=== PATIENT | female | born 1940 | race Caucasian/White ===

== ENCOUNTER 2024-10-02 19:25 | Inpatient (IN) ==
[2024-10-02] MEDS ORDERED: SODIUM CHLORIDE 0.9% 100 ML IV PRN (19:40)
--- NOTE | 2024-10-02 19:44 | Emergency Department Note ---
Impression & Plan Acute upper GI bleed, Anemia requiring transfusions, Symptomatic anemia ED Provider Note HISTORY OF PRESENT ILLNESS: Patient is an 84-year-old female presenting with a GI bleed. Patient is currently at a facility where they noticed that she had black tarry stools starting yesterday. Patient reports feeling very rundown and tired and slightly short of breath over the last few days. She is on Lovenox injections. She has a history of a mechanical heart valve. Patient reports she received a blood transfusion at [facility] some point this week. She denies any abdominal pain, nausea or vomiting. On discussion with the patient, she does report that her CODE STATUS is DNR/DNI. ROS: as above PHYSICAL EXAM: Constitutional: Patient appears in no acute distress. HENT: Head: Normocephalic and atraumatic. Eyes: EOMI, PERRL. Conjunctival pallor. Mouth/Throat: Mucous membranes moist. Neck: Trachea midline. Neck supple. Cardiovascular: Tachycardic with regular rhythm. No murmurs, rubs or gallops. Intact distal pulses. Pulmonary/Chest: No respiratory distress. Breath sounds clear and equal bilaterally. No wheezes or rales. Abdominal: Abdomen soft, no tenderness, rebound or guarding. Rectal: Chaperoned by nurse Vazquez. Kevin black, melanotic stool noted. No palpable masses or hemorrhoids. Hemoccult positive. Musculoskeletal: No edema, tenderness or deformity noted. Skin: Warm and dry. No rash, erythema, or cyanosis. Pale appearing. Psychiatric: Appropriate mood and affect for situation. Neurological: Alert and keenly responsive. CN II-XII grossly intact, moving all extremities equally and fully. MDM: - Vitals signs showed hypoxia, hypotension and tachycardia. - History obtained via patient. History as above. - Chronic conditions affecting care: CAD; CKD; aortic stenosis (s/p AVR); DM-2; multiple myeloma; HTN; HLD - Differential diagnoses include, but are not limited to: Bleeding peptic ulcer; diverticular bleed; rectal mass; coagulopathy - Order placed for continuous cardiac monitoring. At this time, monitor showed rate of 100 bpm with normal sinus rhythm, per my interpretation. - External medical records reviewed. - EKG image interpreted by myself showed normal sinus rhythm. Rate tachycardic at 108 bpm. QT 324. No acute ischemic changes. - Patient consented for blood. 3 units PRBCs ordered with 2 to transfuse now. POC hemoglobin 5.1. - Laboratory workup interpreted by myself showed leukocytosis (WBC 14.90); anemia (Hgb 6.0); thrombocytopenia (plt 129); normal PT/INR - Iron panel and ferritin levels ordered - Discussion was had with heel caser about patient's case and need for admission - Hospitalist, Dr. Asif, consulted for admission - Patient admitted to [facility] service for further evaluation and management. I have personally spent 63 minutes of critical care time in the direct management of this patient. This includes bedside care, interpretation of diagnostic studies, and testing, discussion with consultants, patient, and family members, and other required patient management activities. This 63 minutes is in excess of all separately billable procedures. ASSESSMENT AND PLAN: Diagnosis: Acute upper GI bleed; anemia requiring transfusion; symptomatic anemia Plan: Admit Past Med/Surg History Problem List (Updated 10/02/24 @ 20:24 by Patricia Trotter MD) Symptomatic anemia (Acute) Anemia requiring transfusions (Acute) Acute upper GI bleed (Acute) Encounter for pre-operative examination Medical History Aortic valve disease s/p AVR (2005) Echo 07/[address] Eric/[facility]ill[facility] Reason for Jantoven/warfarin CAD (coronary artery disease) Cardiac cath 2021: mild non-obstructive CAD Carotid artery disease Carotid doppler 06/2024: 50-69% DIANA stenosis. <50% LICA stenosis. Chronic anemia Acute on chronic- being followed closely by PCP + heme/onc Stable hgb in 9's CKD (chronic kidney disease) Diabetes mellitus, type 2 History of gallbladder disease No recent issues Hyperlipidemia Hypertension Liver lesion Follows with Dr. Fields/[facility] Multiple myeloma "Smoldering" Follows with Dr. Fields/[facility] Hx infusions, no current tx Osteoarthritis Surgical History Aortic valve replaced 10/2005, mechanical valve History of cardiac cath 2005- no stents 03/2022- no stents, mild non-obstructive CAD History of cataract surgery R/L History of colonoscopy History of dilatation and curettage History of tonsillectomy Family History Mother Diabetes Son Diabetes Social History Smoking Status: Unknown if ever smoked Second Hand Exposure: No; Do You Dip or Chew Tobacco: No; Hx Alcohol Use: No Hx Substance Use: No Preferred Language: Latvian Communication Ability: Effective Technician'S Helper Required: No Beliefs That Will Affect Care: None Current Living Situation: Spouse Feels Safe at Home: Yes Assistive Devices: Glasses and Walker Allergies Allergies Allergy/AdvReac Type Severity Reaction Status Date / Time No Known Allergies Allergy Verified 09/13/24 10:02 Home Meds Home Medications Medication Instructions Recorded Confirmed acetaminophen 500 mg capsule 1,000 mg PO TID 09/13/24 10/02/24 amlodipine 5 mg tablet 5 mg PO BID 09/13/24 10/02/24 furosemide 20 mg tablet 20 mg PO QAM 09/13/24 10/02/24 lisinopril 20 mg tablet 20 mg PO BID 09/13/24 10/02/24 metformin 500 mg tablet,extended 500 mg PO QAM 09/13/24 10/02/24 release 24 hr simvastatin 20 mg tablet 20 mg PO PM 09/13/24 10/02/24 warfarin 5 mg tablet (Jantoven) 5 mg PO HS 09/13/24 10/02/24 tramadol 50 mg tablet 50 mg PO Q6 PRN mod-severe pain 10/02/24 10/02/24 Results & Data (ED) Vital Signs Vital Signs - 24 hr 10/02/24 19:31 10/02/24 19:32 10/02/24 19:32 Temperature 36.6 C 36.6 C Temperature Source Oral Oral Pulse Rate 109 H 106 H Pulse Rate [Apical] 106 H Respiratory Rate 19 21 Respiratory Effort / Characteristics Non-Labored Non-Labored Respiratory Depth Normal Normal Blood Pressure 106/61 Blood Pressure [Left Arm] 106/61 Blood Pressure Mean 76 Blood Pressure Mean [Left Arm] 76 Pulse Oximetry 85 L 85 L Oxygen Delivery Method Room Air Room Air Oxygen Flow Rate Sepsis Recent Fever Within 48 Hours No Sepsis New/Unexplained Change in Mental Status No Sepsis Action Taken by Nursing No Action Required 10/02/24 19:40 10/02/24 19:51 10/02/24 19:57 Temperature Temperature Source Pulse Rate 107 H 105 H Pulse Rate [Apical] Respiratory Rate 25 H 27 H Respiratory Effort / Characteristics Respiratory Depth Blood Pressure 100/56 L Blood Pressure [Left Arm] Blood Pressure Mean 70 Blood Pressure Mean [Left Arm] Pulse Oximetry 100 100 100 Oxygen Delivery Method Nasal Cannula Nasal Cannula Nasal Cannula Oxygen Flow Rate 2 2 2 Sepsis Recent Fever Within 48 Hours Sepsis New/Unexplained Change in Mental Status Sepsis Action Taken by Nursing 10/02/24 20:02 10/02/24 20:15 Temperature Temperature Source Pulse Rate 100 H Pulse Rate [Apical] Respiratory Rate 24 Respiratory Effort / Characteristics Respiratory Depth Blood Pressure 91/67 L 94/70 L Blood Pressure [Left Arm] Blood Pressure Mean 73 78 Blood Pressure Mean [Left Arm] Pulse Oximetry 100 Oxygen Delivery Method Nasal Cannula Oxygen Flow Rate 2 Sepsis Recent Fever Within 48 Hours Sepsis New/Unexplained Change in Mental Status Sepsis Action Taken by Nursing Laboratory Data 10/02/24 19:35 10/02/24 19:35 Lab Results 10/02/24 10/02/24 10/02/24 Range/Units 19:35 19:37 19:38 WBC 14.90 H (4.8-10.8) K/ul RBC 2.04 L (4.20-5.40) M/uL Hgb 6.0 L* (12.0-16.0) g/dl POC Hgb 5.1 L* (12.0-16.0) g/dl Hct 18.9 L* (37.0-47.0) % POC Hct 15 L* (37-47) % MCV 92.6 (80.0-100.0) fL MCH 29.4 (25.0-34.0) pg MCHC 31.7 L (32.0-36.0) g/dL RDW Std Deviation 52.3 H (36.4-46.3) fL RDW Coeff of Nora 16.0 H (11.5-14.5) % Plt Count 129 L (130-400) K/uL MPV 12.0 (9.4-12.4) fL Immature Gran % (Auto) 2.2 % Neut % (Auto) 66.6 % Lymph % (Auto) 13.2 % Florence % (Auto) 17.9 % Eos % (Auto) 0.0 % Baso % (Auto) 0.1 % Neut # (Auto) 9.94 H (1.40-6.50) K/uL Lymph # (Auto) 1.96 (1.20-3.40) K/uL Florence # (Auto) 2.66 H (0.11-0.59) K/uL Eos # (Auto) 0.00 (0.00-0.50) K/uL Baso # (Auto) 0.01 (0.00-0.20) K/uL Immature Gran # (Auto) 0.33 H (0.01-0.20) K/uL RBC Morphology Unremarkable PT 11.8 (9.0-12.0) Seconds INR 1.1 (0.9-1.1) POC Sodium 133 L (135-144) mmol/L Sodium 135 L (136-145) mmol/L POC Potassium 6.0 H (3.3-5.0) mmol/L Potassium 5.6 H (3.5-5.1) mmol/L POC Chloride 106 (101-112) mmol/L Chloride 106 (98-107) mmol/L Carbon Dioxide 19 L (21-32) mmol/L POC Total CO2 18 L (24-31) mmol/L Anion Gap 10 (3-11) POC Anion Gap 17.0 (16-25) mmol/L POC BUN > 140 H* (7-18) mg/dl BUN 118 H (6-23) mg/dl Creatinine 1.81 H (0.6-1.2) mg/dl POC Creatinine 2.0 H (0.6-1.3) mg/dl Est Cr Clr Drug Dosing 24.5 ml/min eGFR 27.60 BUN/Creatinine Ratio 65.2 H (10-20) Glucose 255 H (70-99(Fasting)) mg/dl POC Glucose (other) 246 H (70-99) mg/dl Calcium 8.6 (8.6-10.3) mg/dl POC Ioniz Calcium Lianna 1.17 (1.12-1.32) mmol/l Iron 158 H (35-150) mcg/dl TIBC 174 L (250-450) mcg/dl Transferrin 124 L (200-360) mg/dl Transferrin % Sat 91 H (15-50) % Total Bilirubin 0.4 (0.2-1.0) mg/dl AST 34 (13-39) U/L ALT 37 (7-52) U/L Alkaline Phosphatase 189 H (34-104) U/L Troponin I High Sens 13.3 (0-14) pg/ml Total Protein 5.7 L (6.0-8.3) gm/dl Albumin 2.7 L (3.4-5.0) gm/dl Globulin 3.0 (2.5-4.0) gm/dl Albumin/Globulin Ratio 0.9 (0.9-2) Lipase 52 (11-82) U/L Blood Type O Negative Antibody Screen NEGATIVE Crossmatch See Detail Administered Medications Pantoprazole Sodium 40 mg/ (Dextrose) 100 mls @ 20 mls/hr IV Q5H SHARON Stop: 11/01/24 19:59 Last Admin: 10/02/24 20:51 Dose: 8 mg/hr, 20 mls/hr Documented By: KAMRYN Discontinued Medications Pantoprazole Sodium 80 mg/ (Dextrose) 120 mls @ 480 mls/hr IV NOW ONE Stop: 10/02/24 19:54 Last Infusion: 10/02/24 20:46 Dose: Infused Documented By: Admin: 10/02/24 20:11 Dose: 480 mls/hr Documented By: KAMRYN Acetaminophen (Ofirmev) 1,000 mg in 100 mls @ 400 mls/hr IV NOW STA Stop: 10/02/24 20:21 Last Infusion: 10/02/24 20:46 Dose: Infused Documented By: Admin: 10/02/24 20:17 Dose: 400 mls/hr Documented By: KAMRYN Pantoprazole Sodium (Pantoprazole Bolus/Drip) 1 each IV NOW STA Stop: 10/02/24 19:41 Last Admin: 10/02/24 20:18 Dose: Not Given Documented By: BUDDY Discharge Plan Visit Data Chief Complaint: GI Bleed Stated Complaint: GI Bleed, Back Pain, Chest Pressure ED Provider: Patricia Trotter Discharge Problem: Acute upper GI bleed, Anemia requiring transfusions, Symptomatic anemia Condition: Serious Forms Stand Alone Forms: [facility] Prescriptions Prescriptions: No Action tramadol 50 mg tablet 50 mg PO Q6 PRN (Reason: mod-severe pain) lisinopril 20 mg Tablet 20 mg PO BID amlodipine 5 mg Tablet 5 mg PO BID simvastatin 20 mg Tablet 20 mg PO PM warfarin [Jantoven] 5 mg Tablet 5 mg PO HS Patient Comments: every day except Friday furosemide 20 mg Tablet 20 mg PO QAM metformin 500 mg Tablet Extended Release 24 Hr 500 mg PO QAM acetaminophen [Tylenol Extra Strength] 500 mg Capsule 1,000 mg PO TID Referrals Referrals: Elis Swain MD [Primary Care Provider] -
[2024-10-02 19:59] LABS: Hematocrit (blood only) 18.9 % (37.0-47.0); Hemoglobin 6.0 g/dl (12.0-16.0); Mean Corpuscular Hemoglobin 29.4 pg (25.0-34.0); Mean Corpuscular Volume 92.6 fL (80.0-100.0); Platelet Count 129 K/uL (130-400); RDW Standard Deviation 52.3 fL (36.4-46.3); Red Blood Count 2.04 M/uL (4.20-5.40); White Blood Count 14.90 K/ul (4.8-10.8)
[2024-10-02 20:08] LABS: Immature Granulocytes # (auto) 0.33 K/uL (0.01-0.20); Immature Granulocytes % (auto) 2.2 %; RBC Morphology Unremarkable
[2024-10-02 20:10] LABS: Alanine Aminotransferase 37 U/L (7-52); Albumin Globulin Ratio 0.9 (0.9-2); Alkaline Phosphatase 189 U/L (34-104); Anion Gap 10 (3-11); Bilirubin,Total 0.4 mg/dl (0.2-1.0); Blood Urea Nitrogen 118 mg/dl (6-23); Calcium 8.6 mg/dl (8.6-10.3); Carbon Dioxide 19 mmol/L (21-32); Chloride 106 mmol/L (98-107); Creatinine Clr Calc Pharmacy 24.5 ml/min; Globulin 3.0 gm/dl (2.5-4.0); Glucose 255 mg/dl (70-99(Fasting)); Lipase 52 U/L (11-82); Potassium 5.6 mmol/L (3.5-5.1); Sodium 135 mmol/L (136-145); Total Protein 5.7 gm/dl (6.0-8.3)
[2024-10-02] MEDS: ACETAMINOPHEN 1,000 MG/100 ML VIAL IV STA (20:17)
[2024-10-02 20:18] LABS: Iron 158 mcg/dl (35-150); Total Iron Binding Cap Calc 174 mcg/dl (250-450); Transferrin 124 mg/dl (200-360); Transferrin (FE) Percent Satur 91 % (15-50)
[2024-10-02] MEDS: PANTOPRAZOLE BOLUS/DRIP IV STA (20:18)
[2024-10-02 20:21] LABS: INR 1.1 (0.9-1.1); Prothrombin Time 11.8 Seconds (9.0-12.0)
[2024-10-02] MEDS: PANTOprazole 40 MG in DEXTROSE 5% MINI-B 100 ML IV SCH (20:51)
--- NOTE | 2024-10-02 20:59 | History & Physical Report ---
Date of Service October 02, 2024 Assessment & Plan (1) Hypotension: Plan: Assessment and plan below following discussion of case with ED provider and reviewing patient history/pertinent normal/abnormal diagnostic test results. Hypotension Secondary to hypovolemia from recurrent UGIB hx status post mechanical AVR currently on Lovenox injections in preparation for lumbar compression fracture surgery next week Acute on chronic anemia secondary to above Hyperkalemia secondary to illness, home lisinopril contributory Possible sepsis, no obvious source for now, elevated procalcitonin hx nonobstructive CAD valvular heart disease (mild to moderate MR/mild MS/TR/SC, TTE 2024) hyperlipidemia on statin Rx CRI, creatinine at baseline smoldering multiple myeloma, patient follows with Dr. Fields of [facility] hematology chronic thrombocytopenia DM2 on oral medications, well-controlled as of recent hemoglobin A1c of 6.5 this month Admit to PCU IVF, hold BP meds for now until BP stable IV PPI Transfuse PRBC to maintain hemoglobin at least [address] abdomen pelvis re: recurrent UGIB with abdominal pain/Lovenox injections GI consult re: UGIB N.p.o. in anticipation of endoscopy Regular insulin and bicarb for hyperkalemia, hold lisinopril for now CS, cefepime for sepsis of unknown source for now Orthopedic spine consult Re: Follow-up eval for worsening back pain/possible surgery next week (Patient known to Dr. Valdez.) ISS BG goal 110-140 DVT prophylaxis. SCDs re: GI bleed DNR as per patient prior directives. Patient request for son to be given updates regarding care. Mr. Abraham Fernandez, contact #[phone]. Total critical care time was 40 minutes. Text document was generated using [employer] voice recognition software. It may contain grammatical or spelling errors. Kindly contact undersigned for clarification of any documentation item in question. History of Present Illness Chief Complaint: Melena Primary Care Provider: Elis Swain MD History obtained from patient and records. Medical history significant for nonobstructive CAD, status post mechanical AVR on Coumadin, valvular heart disease (mild to moderate MR/mild MS/TR/SC, TTE 2024), hypertension, hyperlipidemia, CRI (baseline creatinine 1.5-1.8), smoldering multiple myeloma, chronic anemia (baseline hemoglobin of 10), chronic thrombocytopenia, DM2 on oral medications, chronic back pain secondary to lumbar compression fracture, liver mass as per records history toxoplasma chorioretinitis as per records. Patient Coumadin for mechanical AVR stopped 2 weeks ago in preparation for elective lumbar kyphoplasty for lumbar compression fracture at [facility] originally scheduled last 09/27/2024. Patient started on weight-based Lovenox subcutaneous injections at home. 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 Patient noted to have melanotic stools last week without abdominal pain. Noted to be very anemic upon admission at [facility]. Blood transfusion given during confinement. No endoscopy done due to patient being high risk for procedure as per patient account. Patient discharged to [place], [place] few days ago for rehab in preparation for rescheduled back surgery at [facility] for 10/05/2024. Weight-based Lovenox subcutaneous injections restarted on discharge. Patient not feeling well upon discharge from hospital. Weak with occasional SOB. No chest pain, no SOB symptoms. Tolerable achy abdominal discomfort. Back pain somewhat worsening with radiation to left lower leg. No fever, no chills. Patient noted to have melanotic stools at rehab facility today. Some nausea without emesis. SBP 90s upon EMS arrival. IV PPI and 1 unit PRBC administered at the ER. 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 Allergies Allergy/AdvReac Type Severity Reaction Status Date / Time No Known Allergies Allergy Verified 09/13/24 10:02 Home Medications Medication Instructions Recorded Confirmed Type acetaminophen 500 mg capsule 1,000 mg PO TID 09/13/24 10/02/24 History amlodipine 5 mg tablet 5 mg PO BID 09/13/24 10/02/24 History furosemide 20 mg tablet 20 mg PO QAM 09/13/24 10/02/24 History lisinopril 20 mg tablet 20 mg PO BID 09/13/24 10/02/24 History metformin 500 mg tablet,extended 500 mg PO QAM 09/13/24 10/02/24 History release 24 hr simvastatin 20 mg tablet 20 mg PO PM 09/13/24 10/02/24 History warfarin 5 mg tablet (Jantoven) 5 mg PO HS 09/13/24 10/02/24 History tramadol 50 mg tablet 50 mg PO Q6 PRN mod-severe pain 10/02/24 10/02/24 History Past Med/Surg History Problem List (Updated 10/03/24 @ 09:17 by Chacorta Asif MD) Hypotension Symptomatic anemia (Acute) Anemia requiring transfusions (Acute) Acute upper GI bleed (Acute) Encounter for pre-operative examination Medical History Aortic valve disease s/p AVR (2005) Echo 07/[address] Eric/[facility] Reason for Jantoven/warfarin CAD (coronary artery disease) Cardiac cath 2021: mild non-obstructive CAD Carotid artery disease Carotid doppler 06/2024: 50-69% DIANA stenosis. <50% LICA stenosis. Chronic anemia Acute on chronic- being followed closely by PCP + heme/onc Stable hgb in 9's CKD (chronic kidney disease) Diabetes mellitus, type 2 History of gallbladder disease No recent issues Hyperlipidemia Hypertension Liver lesion Follows with Dr. Fields/[facility] Multiple myeloma "Smoldering" Follows with Dr. Fields/[facility] Hx infusions, no current tx Osteoarthritis Surgical History Aortic valve replaced 10/2005, mechanical valve History of cardiac cath 2005- no stents 03/2022- no stents, mild non-obstructive CAD History of cataract surgery R/L History of colonoscopy History of dilatation and curettage History of tonsillectomy Family History Mother Diabetes Son Diabetes Social History Smoking Status: Never smoker Second Hand Exposure: No; Do You Dip or Chew Tobacco: No; Tobacco Cessation Education Requested by Patient: No Hx Alcohol Use: No Hx Substance Use: No Preferred Language: Estonian Communication Ability: Effective Staffing Consultant Required: No Beliefs That Will Affect Care: None Current Living Situation: Spouse Other Information That Helps Us Care for You: No Feels Safe at Home: Yes Safety Concerns: Feels Safe At This Time Assistive Devices: Glasses and Walker Review of Systems Review of Systems: As per HPI, all other systems reviewed and negative Physical Exam Physical Exam: GENERAL: uncomfortable, slightly anxious, obese, no respiratory distress SKIN: Pallor, warm HEENT: Bespectacled, pale palpebral conjunctivae, no ptosis, dry buccal mucosa, nasal cannula in place NECK : Supple, no tenderness CHEST : Decreased breath sounds, no tenderness HEART : RRR, mechanical murmur ABDOMEN: Some distention, nontender BACK : Low back tenderness, positive SLR left EXTREMITIES : Minimal LE swelling, no LE tenderness, palpable pulses, no other conspicuous deformities noted NEUROLOGIC : Coherent, no facial asymmetry, no other gross focality Results & Data Results & Data Vital Signs (Past 12 Hours) Vital Signs Temp Pulse Pulse Resp BP BP Pulse Ox 10/02/24 20:15 100 H 24 94/70 L 100 10/02/24 20:02 91/67 L 10/02/24 19:57 105 H 27 H 100 10/02/24 19:51 107 H 25 H 100/56 L 100 10/02/24 19:40 100 10/02/24 19:32 36.6 C 106 H 21 106/61 85 L 10/02/24 19:32 36.6 C 106 H 19 106/61 85 L 10/02/24 19:31 109 H O2 Del Method O2 Flow Rate 10/02/24 20:15 Nasal Cannula 2 10/02/24 20:02 10/02/24 19:57 Nasal Cannula 2 10/02/24 19:51 Nasal Cannula 2 10/02/24 19:40 Nasal Cannula 2 10/02/24 19:32 Room Air 10/02/24 19:32 Room Air 10/02/24 19:31 Laboratory Results Laboratory Results WBC 14.90 K/ul (4.8-10.8) H 10/02/24 19:35 RBC 2.04 M/uL (4.20-5.40) L 10/02/24 19:35 Hgb 6.0 g/dl (12.0-16.0) L* 10/02/24 19:35 POC Hgb 5.1 g/dl (12.0-16.0) L* 10/02/24 19:38 Hct 18.9 % (37.0-47.0) L* 10/02/24 19:35 POC Hct 15 % (37-47) L* 10/02/24 19:38 MCV 92.6 fL (80.0-100.0) 10/02/24 19:35 MCH 29.4 pg (25.0-34.0) 10/02/24 19:35 MCHC 31.7 g/dL (32.0-36.0) L 10/02/24 19:35 RDW Std Deviation 52.3 fL (36.4-46.3) H 10/02/24 19:35 RDW Coeff of Nora 16.0 % (11.5-14.5) H 10/02/24 19:35 Plt Count 129 K/uL (130-400) L 10/02/24 19:35 MPV 12.0 fL (9.4-12.4) 10/02/24 19:35 Immature Gran % (Auto) 2.2 % 10/02/24 19:35 Neut % (Auto) 66.6 % 10/02/24 19:35 Lymph % (Auto) 13.2 % 10/02/24 19:35 Swain % (Auto) 17.9 % 10/02/24 19:35 Eos % (Auto) 0.0 % 10/02/24 19:35 Baso % (Auto) 0.1 % 10/02/24 19:35 Neut # (Auto) 9.94 K/uL (1.40-6.50) H 10/02/24 19:35 Lymph # (Auto) 1.96 K/uL (1.20-3.40) 10/02/24 19:35 Swain # (Auto) 2.66 K/uL (0.11-0.59) H 10/02/24 19:35 Eos # (Auto) 0.00 K/uL (0.00-0.50) 10/02/24 19:35 Baso # (Auto) 0.01 K/uL (0.00-0.20) 10/02/24 19:35 Immature Gran # (Auto) 0.33 K/uL (0.01-0.20) H 10/02/24 19:35 RBC Morphology Unremarkable 10/02/24 19:35 PT 11.8 Seconds (9.0-12.0) 10/02/24 19:35 INR 1.1 (0.9-1.1) 10/02/24 19:35 POC Sodium 133 mmol/L (135-144) L 10/02/24 19:38 Sodium 135 mmol/L (136-145) L 10/02/24 19:35 POC Potassium 6.0 mmol/L (3.3-5.0) H 10/02/24 19:38 Potassium 5.6 mmol/L (3.5-5.1) H 10/02/24 19:35 POC Chloride 106 mmol/L (101-112) 10/02/24 19:38 Chloride 106 mmol/L (98-107) 10/02/24 19:35 Carbon Dioxide 19 mmol/L (21-32) L 10/02/24 19:35 POC Total CO2 18 mmol/L (24-31) L 10/02/24 19:38 Anion Gap 10 (3-11) 10/02/24 19:35 POC Anion Gap 17.0 mmol/L (16-25) 10/02/24 19:38 POC BUN > 140 mg/dl (7-18) H* 10/02/24 19:38 BUN 118 mg/dl (6-23) H 10/02/24 19:35 Creatinine 1.81 mg/dl (0.6-1.2) H 10/02/24 19:35 POC Creatinine 2.0 mg/dl (0.6-1.3) H 10/02/24 19:38 Est Cr Clr Drug Dosing 24.5 ml/min 10/02/24 19:35 eGFR 27.60 10/02/24 19:35 BUN/Creatinine Ratio 65.2 (10-20) H 10/02/24 19:35 Glucose 255 mg/dl (70-99(Fasting)) H 10/02/24 19:35 POC Glucose (other) 246 mg/dl (70-99) H 10/02/24 19:38 Calcium 8.6 mg/dl (8.6-10.3) 10/02/24 19:35 POC Ioniz Calcium Lianna 1.17 mmol/l (1.12-1.32) 10/02/24 19:38 Iron 158 mcg/dl (35-150) H 10/02/24 19:35 TIBC 174 mcg/dl (250-450) L 10/02/24 19:35 Transferrin 124 mg/dl (200-360) L 10/02/24 19:35 Transferrin % Sat 91 % (15-50) H 10/02/24 19:35 Total Bilirubin 0.4 mg/dl (0.2-1.0) 10/02/24 19:35 AST 34 U/L (13-39) 10/02/24 19:35 ALT 37 U/L (7-52) 10/02/24 19:35 Alkaline Phosphatase 189 U/L (34-104) H 10/02/24 19:35 Troponin I High Sens 13.3 pg/ml (0-14) 10/02/24 19:35 Total Protein 5.7 gm/dl (6.0-8.3) L 10/02/24 19:35 Albumin 2.7 gm/dl (3.4-5.0) L 10/02/24 19:35 Globulin 3.0 gm/dl (2.5-4.0) 10/02/24 19:35 Albumin/Globulin Ratio 0.9 (0.9-2) 10/02/24 19:35 Lipase 52 U/L (11-82) 10/02/24 19:35 Blood Type O Negative 10/02/24 19:37 Antibody Screen NEGATIVE 10/02/24 19:37 Crossmatch See Detail 10/02/24 19:37 Diagnostic Findings EKG as per my interpretation :Rate 110, sinus tachycardia, LAD, LAFB, LVH, no ischemia
[2024-10-02] MEDS: SODIUM BICARB 8.4% INJ 50 MEQ/50 ML SYR IV STA (21:01)
[2024-10-02] MEDS: CALCIUM GLUCONATE 1,000 MG/60 ML BAG IV STA (21:05)
[2024-10-02] MEDS: NovoLIN-R INSULIN PER UNIT CHARGE IV STA (21:16)
[2024-10-02] MEDS: DEXTROSE 50% 50 ML SYRINGE IV ONE (21:16)
[2024-10-02 21:18] LABS: Ferritin > 7500.0 ng/ml (8-388)
[2024-10-02] MEDS ORDERED: PROMETHAZINE 6.25 MG/50.25 ML BAG IV PRN (21:37)
[2024-10-02] MEDS ORDERED: MELATONIN 3 MG TAB PO PRN (21:42)
[2024-10-02] MEDS: LANTUS PER UNIT CHARGE SQ SCH (22:39)
[2024-10-02] MEDS ORDERED: DEXTROSE 50% 50 ML SYRINGE IV PRN (23:19)
[2024-10-02] MEDS ORDERED: GLUCAGON FOR INJ 1 MG VIAL SQ PRN (23:19)
[2024-10-02] MEDS ORDERED: CARBOHYDRATES FOR HYPOGLYCEMIA PO PRN (23:19)
[2024-10-02] MEDS ORDERED: GLUCOSE 10 TAB/TUBE PO PRN (23:19)
[2024-10-02] MEDS ORDERED: GLUCOSE 40% GEL 15 GM TUBE PO PRN (23:19)
--- NOTE | 2024-10-03 00:04 | XRay Report ---
Exam(s): XR CXR 1 VIEW EXAM: XR Chest, 1 View CLINICAL HISTORY: Reason for exam: sob. TECHNIQUE: Frontal view of the chest. COMPARISON: Prior chest x-ray from September 17. FINDINGS: Lungs: Mild to moderate peribronchial thickening of the central and lower lobe bronchi. Hyperinflation lungs with flattening diaphragms. No consolidation. Pleural space: Unremarkable. No pneumothorax. Heart: Mild cardiomegaly. Mediastinum: Unremarkable. Normal mediastinal contour. Bones/joints: Status post median sternotomy with sternal wires in place. No acute fracture. IMPRESSION: Bronchitis, which may be of infectious or inflammatory etiologies. No consolidation or pleural effusion. Cardiomegaly without evidence of CHF. Electronically signed by: Lilly Trejo MD 10/03/24 00:03 AM
[2024-10-03] MEDS: INSULIN ASPART PER UNIT CHARGE SC SCH ×2 (00:20→20:27)
[2024-10-03 01:28] LABS: Base Excess VBG -5.8 mEq/L; HCO3 VBG 20 mmol/L; Oxygen Saturation VBG < 60.0 %; PCO2 VBG 40 mmHg (38-50); PO2 VBG 33 mmHg; pH VBG 7.31 (7.36-7.41)
[2024-10-03 01:49] LABS: Appearance Urine Clear (Clear); Glucose Urine UA Negative (Negative)
--- NOTE | 2024-10-03 02:16 | CT Scan Report ---
Exam(s): CT ABDOMEN + PELVIS Without Contrast EXAM: CT Abdomen and Pelvis Without Intravenous Contrast CLINICAL HISTORY: Reason for exam: abd pain, ugib. TECHNIQUE: Axial computed tomography images of the abdomen and pelvis without intravenous contrast. CTDI is 26 mGy and DLP is 1313 mGy-cm. Automated exposure control was utilized for the study. A dose lowering technique was utilized adhering to the principles of ALARA. COMPARISON: 09/02/2024 FINDINGS: Lung bases: Unremarkable. No mass. No consolidation. Heart: Mitral valve calcification. Postoperative changes aortic valve repair. ABDOMEN: Liver: Stable appearance to right hepatic lobe mass measuring 8.4 x 7. 3 cm. Gallbladder and bile ducts: Postoperative changes prior cholecystectomy. No ductal dilation. Pancreas: Unremarkable. No ductal dilation. Spleen: Unremarkable. No splenomegaly. Adrenals: Unremarkable. No mass. Kidneys and ureters: Unremarkable. No obstructing stones. No hydronephrosis. Stomach and bowel: Unremarkable. No obstruction. No mucosal thickening. PELVIS: Appendix: No findings to suggest acute appendicitis. Bladder: Distended urinary bladder. No stones. Reproductive: Unremarkable as visualized. ABDOMEN and PELVIS: Intraperitoneal space: Unremarkable. No free air. No significant fluid collection. Bones/joints: Interval worsening of a comminuted displaced slightly retropulsed fracture of the L3 vertebral body resulting in 80% vertebral body height loss. No dislocation. Soft tissues: Unremarkable. Vasculature: Unremarkable. No abdominal aortic aneurysm. Lymph nodes: Unremarkable. No enlarged lymph nodes. IMPRESSION: Worsening comminuted displaced slightly retropulsed fracture of the L3 vertebral body. This results in 80% vertebral body height loss and has progressed significantly since the prior exam. Recommend MRI of the lumbar spine to fully evaluate the spinal canal. Distended urinary bladder Stable right hepatic lobe mass Electronically signed by: Gabino Shabazz MD 10/03/24 02:15 AM
[2024-10-03] MEDS: PIPERACILLIN/TAZOBACTAM 4.5 GM/100 ML BAG IV ONE (02:25)
[2024-10-03] MEDS: CEFEPIME 2000MG 2,000 MG/20 ML SYR IV ONE (03:01)
[2024-10-03] MEDS: SODIUM CHLORIDE 0.9% 1,000 ML IV STA (03:01)
[2024-10-03] MEDS: LIDOCAINE 5% 1 PATCH TD SCH (03:02)
[2024-10-03] MEDS ORDERED: SODIUM CHLORIDE 0.9% 100 ML IV PRN (04:03)
--- NOTE | 2024-10-03 07:42 | Hospitalist Progress Note ---
Date of Service October 03, 2024 Assessment & Plan (1) Acute upper GI bleed: (2) Symptomatic anemia: Plan Ms. 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 Patient states that she was not aware she had melena as she was at a rehab awaiting her upcoming surgery. She states a nurse finally told her as she had experienced ongoing uncontrolled diarrhea since Friday. Patient also reports GERD like/epigastric pain on Friday. Patient states this is not like her history of hemorrhoidal bleeding. She reports fear of scopes as the last one she had was when "Michelle Priti passed." She also notes that she is afraid to go to a snf. Spoke at length with son and daughter in law who reports concerns about patient's ability to care for self. Family requesting insight from case management about OOA if they should get involved or what the next steps may be as patient is unable to care for self or with dementia. Anticoagulation held for now but will need to have heparin resumed as soon as able given presence of mechanical aortic valve. NPO at midnight for scopes tomorrow per GI #Acute on chronic blood loss anemia, c/f UGIB #Melena #Hemorrhoidal bleeding history Baseline hgb ~10, hgb 6.0 on arrival/POC 5.1 reports of ?blood transfusion at [facility] earlier this week notable s.p 2 UPRBC had planned egd and colonoscopy 09/23, however cancelled continue PPI drip GI consulted: discussed case with GI will plan for golyetly prep now for NPO at midnight and scope tomorrow CLD for now, start Golytely now Initiate heparin drip as able once hgb remains stable and no other episodes of melena reported #Mechanical Aortic valve #Heart failure with preserved EF, chronic #Nonobstructive CAD ECHO 07/2024 EF 55-60%, normal mechanical valve, GIIDD Follow[facility] Currently bridging with lovenox q12 with plans for coumadin and lovenox to resume on day of anticipated procedure hold AC for now, will need to resume a soonest time able 2/2 risk of clot hold diuretics for now and monitor fluid status I/Os and daily weights #Liver mass noted that 3 CT scans this year reportedly revealed liver mass at least 9cm, new since [address] on admission Stable appearance to right hepatic lobe mass measuring 8.4 x 7. 3 cm. appears stable #HTN on amlodipine, lasix and lisinopril hold for now, resume as able #HLD continue statin #DMTII hold metformin basal bolus while admitted #Multiple myeloma IgA lambda #Iron deficiency anemia s/p iron transfusions & EPO reportedly in remission, follows [facility] #CKD III-IV GFR ranges 28-30s, cr 1.5-18 avoid nephrotoxic agents continue to trend cmp #Compression fracture L3 Kyphoplasty planned Imaging notes Worsening comminuted displaced slightly retropulsed fracture of the L3 vertebral body. Ortho spine consult: reviewed Ortho spine notes, formal CT lumbar ordered Pt/OT when able DVT scds for now, will need heparin drip as soon as hgb stable and source control obtained Admission and Anticipated Discharge Date Admission Date: October 02, 2024 Subjective Admitted overnight endorses ongoing chronic pain in her back and legs, but reports subjective improvement since admission denies chest pain, sob, palpitations states she is worried about ending up in a nursing and is afraid of "scopes", reassurance provided Physical Exam Constitutional: WD/WN, vitals as above Respiratory: normal respiratory effort, lungs clear to auscultation Cardiovascular: mechanical click present RRR, +KARRIE Gastrointestinal (Abdomen): normal bowel sounds, soft, nontender, no hepatosplenomegaly Results & Data Results & Data Vital Signs (Past 12 Hours) Vital Signs Temp Pulse Pulse Resp BP BP Pulse Ox 10/03/24 07:08 36.5 C 89 18 143/48 H 100 10/03/24 07:05 36.5 C 89 18 143/48 H 100 10/03/24 06:29 36.5 C 86 16 144/56 H 97 10/03/24 05:31 36.5 C 84 16 126/67 97 06/29/25 05:01 36.6 C 82 16 109/57 L 96 10/03/24 04:46 36.6 C 85 16 109/65 97 10/03/24 04:38 37.4 C 88 16 115/67 96 10/03/24 04:27 36.3 C L 92 H 18 121/88 98 10/03/24 00:07 36.7 C 82 18 134/78 96 10/02/24 23:31 36.3 C L 90 18 138/79 98 10/02/24 23:27 81 10/02/24 22:35 36.6 C 94 H 21 128/49 L 100 10/02/24 22:05 37 C 96 H 20 127/60 100 10/02/24 21:50 36.4 C 97 H 22 144/71 H 100 10/02/24 21:25 36.7 C 93 H 21 130/54 L 100 10/02/24 21:21 92 H 25 H 100 10/02/24 21:15 134/71 10/02/24 21:00 113/67 10/02/24 20:45 99 H 23 120/62 100 10/02/24 20:30 98 H 21 110/78 100 10/02/24 20:15 100 H 24 94/70 L 100 10/02/24 20:02 91/67 L 10/02/24 19:57 105 H 27 H 100 10/02/24 19:51 107 H 25 H 100/56 L 100 10/02/24 19:40 100 10/02/24 19:32 36.6 C 106 H 21 106/61 85 L 10/02/24 19:32 36.6 C 106 H 19 106/61 85 L 10/02/24 19:31 109 H O2 Del Method O2 Flow Rate 10/03/24 07:08 2 10/03/24 07:05 10/03/24 06:29 10/03/24 05:31 10/03/24 05:01 10/03/24 04:46 10/03/24 04:38 10/03/24 04:27 10/03/24 00:07 10/02/24 23:31 Room Air 10/02/24 23:27 10/02/24 22:35 2 10/02/24 22:05 2 10/02/24 21:50 2 10/02/24 21:25 2 10/02/24 21:21 Nasal Cannula 2 10/02/24 21:15 10/02/24 21:00 10/02/24 20:45 Nasal Cannula 2 10/02/24 20:30 Nasal Cannula 2 10/02/24 20:15 Nasal Cannula 2 10/02/24 20:02 10/02/24 19:57 Nasal Cannula 2 10/02/24 19:51 Nasal Cannula 2 10/02/24 19:40 Nasal Cannula 2 10/02/24 19:32 Room Air 10/02/24 19:32 Room Air 10/02/24 19:31 Laboratory Results Short CBC 10/02/24 10/03/24 Range/Units 19:35 08:56 WBC 14.90 H 15.03 H (4.8-10.8) K/ul Hgb 6.0 L* 8.7 L (12.0-16.0) g/dl Hct 18.9 L* 25.6 L (37.0-47.0) % Plt Count 129 L 95 L (130-400) K/uL BMP 10/02/24 10/03/24 10/03/24 19:35 01:01 08:56 Sodium 135 L 138 Potassium 5.6 H 5.0 4.8 Chloride 106 109 H Carbon Dioxide 19 L 22 BUN 118 H 117 H Creatinine 1.81 H 1.75 H Glucose 255 H 135 H Calcium 8.6 8.7 Liver Function 10/02/24 Range/Units 19:35 Total Bilirubin 0.4 (0.2-1.0) mg/dl AST 34 (13-39) U/L ALT 37 (7-52) U/L Alkaline Phosphatase 189 H (34-104) U/L Albumin 2.7 L (3.4-5.0) gm/dl Urine 10/03/24 Range/Units 01:34 Urine Color Yellow Urine Appearance Clear (Clear) Urine pH 5.0 (4.5-7.5) Ur Specific [place] 1.017 (1.000-1.030) Urine Protein Negative (Negative) Urine Glucose (UA) Negative (Negative) Medications Administered Home Medications Medication Instructions Recorded Confirmed Last Taken acetaminophen 500 mg capsule 1,000 mg PO TID 09/13/24 10/02/24 Unknown amlodipine 5 mg tablet 5 mg PO BID 09/13/24 10/02/24 Unknown furosemide 20 mg tablet 20 mg PO QAM 09/13/24 10/02/24 Unknown lisinopril 20 mg tablet 20 mg PO BID 09/13/24 10/02/24 Unknown metformin 500 mg tablet,extended 500 mg PO QAM 09/13/24 10/02/24 Unknown release 24 hr simvastatin 20 mg tablet 20 mg PO PM 09/13/24 10/02/24 Unknown warfarin 5 mg tablet (Aprtoven) 5 mg PO HS 09/13/24 10/02/24 Unknown tramadol 50 mg tablet 50 mg PO Q6 PRN mod-severe pain 10/02/24 10/02/24 Unknown Active Medications Generic Name Dose Route Start Last Admin Trade Name Teoq PRN Reason Stop Dose Admin Acetaminophen 1,000 mg 10/03/24 09:00 10/03/24 14:36 Acetaminophen 500 Mg Tab PO 11/02/24 08:59 1,000 mg TID SHARON Administration Hydromorphone HCl 0.25 mg 10/02/24 21:37 10/03/24 12:20 Hydromorphone Inj 0.5 Mg/0.5 Ml Syr IV 10/16/24 21:36 0.25 mg Q4H PRN Administration Pain Pantoprazole Sodium 40 mg/ 100 mls @ 20 mls/hr 10/02/24 20:00 10/03/24 11:32 Dextrose IV 11/01/24 19:59 8 mg/hr Q5H SHARON 20 mls/hr Administration 8 MG/HR Sodium Chloride 1,000 mls @ 50 mls/hr 10/02/24 21:54 10/03/24 03:01 Nss IV 10/03/24 17:53 50 mls/hr .Q20H STA Administration Cefepime HCl 1,000 mg in 10 mls @ 5 mls/min 10/03/24 14:00 10/03/24 14:36 Maxipime 2000mg IV 10/05/24 13:59 5 mls/min Q12H SHARON Administration Protocol Insulin Aspart 0 units 10/02/24 23:30 10/03/24 11:30 Insulin Aspart Per Unit Charge SC 11/01/24 23:29 Not Given Q6 SHARON Insulin Glargine 5 units 10/02/24 22:05 10/02/24 22:39 Lantus Per Unit Charge SQ 11/01/24 22:04 5 units HS SHARON Administration Lidocaine 1 patch 10/03/24 02:50 10/03/24 03:02 Lidocaine 5% 1 Patch TD 11/02/24 02:49 Not Given HS SHARON Miscellaneous 1 each 10/03/24 12:00 10/03/24 11:33 Remove Lidoderm Patch N/A 11/02/24 11:59 1 each DAILY SHARON Administration Oxycodone HCl 5 mg 10/02/24 21:37 10/03/24 12:53 Oxycodone Hcl Ir 5 Mg Tab (Immediate Release) PO 10/16/24 21:36 5 mg Q4H PRN Administration Pain
[2024-10-03 09:36] LABS: Hematocrit (blood only) 25.6 % (37.0-47.0); Hemoglobin 8.7 g/dl (12.0-16.0); Immature Granulocytes # (auto) 0.34 K/uL (0.01-0.20); Immature Granulocytes % (auto) 2.3 %; Mean Corpuscular Hemoglobin 30.4 pg (25.0-34.0); Mean Corpuscular Volume 89.5 fL (80.0-100.0); Platelet Count 95 K/uL (130-400); RDW Standard Deviation 50.4 fL (36.4-46.3); Red Blood Count 2.86 M/uL (4.20-5.40); White Blood Count 15.03 K/ul (4.8-10.8)
[2024-10-03 09:41] LABS: Anion Gap 7.0 (3-11); Blood Urea Nitrogen 117.0 mg/dl (6-23); Calcium 8.7 mg/dl (8.6-10.3); Carbon Dioxide 22.0 mmol/L (21-32); Chloride 109.0 mmol/L (98-107); Creatinine Clr Calc Pharmacy 25.4 ml/min; Glucose 135.0 mg/dl (70-99(Fasting)); Potassium 4.8 mmol/L (3.5-5.1); Sodium 138.0 mmol/L (136-145)
[2024-10-03] MEDS: ACETAMINOPHEN 500 MG TAB PO SCH (10:06)
--- NOTE | 2024-10-03 11:14 | Orthopedic Consultation ---
Date of Consultation October 03, 2024 Assessment & Plan (1) Lumbar burst fracture: CAT scan of the abdomen demonstrates L3 burst fracture. I would like to obtain a formal lumbar CAT scan for better anatomic detail. She is unable to have an MRI secondary to her heart valve. She is at significant risk for any surgical intervention. At best we could consider kyphoplasty however this would not address any neural compression. History of Present Illness Reason for Consultation: Patient complaining of back pain and predominantly left greater than right leg pain. Markedly limits her ability to ambulate. Attending Physician: Yanelis Garcia MD History of Present Illness This is a very pleasant 84-year-old female with chronic back and leg pain. She is struggling with significant medical issues. There was early discussion regarding a possible kyphoplasty of L3 to help with her pain. Allergies Allergy/AdvReac Type Severity Reaction Status Date / Time No Known Allergies Allergy Verified 09/13/24 10:02 Home Medications Medication Instructions Recorded Confirmed Type acetaminophen 500 mg capsule 1,000 mg PO TID 09/13/24 10/02/24 History amlodipine 5 mg tablet 5 mg PO BID 09/13/24 10/02/24 History furosemide 20 mg tablet 20 mg PO QAM 09/13/24 10/02/24 History lisinopril 20 mg tablet 20 mg PO BID 09/13/24 10/02/24 History metformin 500 mg tablet,extended 500 mg PO QAM 09/13/24 10/02/24 History release 24 hr simvastatin 20 mg tablet 20 mg PO PM 09/13/24 10/02/24 History warfarin 5 mg tablet (Jantoven) 5 mg PO HS 09/13/24 10/02/24 History tramadol 50 mg tablet 50 mg PO Q6 PRN mod-severe pain 10/02/24 10/02/24 History Patient History Medical History Aortic valve disease s/p AVR (2005) Echo 07/[address] Eric/[facility] Reason for Jantoven/warfarin CAD (coronary artery disease) Cardiac cath 2021: mild non-obstructive CAD Carotid artery disease Carotid doppler 06/2024: 50-69% DIANA stenosis. <50% LICA stenosis. Chronic anemia Acute on chronic- being followed closely by PCP + heme/onc Stable hgb in 9's CKD (chronic kidney disease) Diabetes mellitus, type 2 History of gallbladder disease No recent issues Hyperlipidemia Hypertension Liver lesion Follows with Dr. [facility] Multiple myeloma "Smoldering" Follows with Dr. Fields/[facility] Hx infusions, no current tx Osteoarthritis Surgical History Aortic valve replaced 10/2005, mechanical valve History of cardiac cath 2005- no stents 03/2022- no stents, mild non-obstructive CAD History of cataract surgery R/L History of colonoscopy History of dilatation and curettage History of tonsillectomy Family History Mother Diabetes Son Diabetes Social History Smoking Status: Never smoker Second Hand Exposure: No; Do You Dip or Chew Tobacco: No; Tobacco Cessation Education Requested by Patient: No Hx Alcohol Use: No Hx Substance Use: No Preferred Language: Icelandic Communication Ability: Effective Jig Inspector Required: No Beliefs That Will Affect Care: None Current Living Situation: Spouse Other Information That Helps Us Care for You: No Feels Safe at Home: Yes Safety Concerns: Feels Safe At This Time Assistive Devices: Glasses and Walker Physical Exam Physical Exam: Patient is in bed. She is alert and cooperative with exam. She has reasonable motor function of lower extremities. Sensory is intact. Results & Data Vital Signs (Past 12 Hours) Vital Signs Temp Pulse Pulse Resp BP BP Pulse Ox 10/03/24 08:00 88 10/03/24 07:08 36.5 C 89 18 143/48 H 100 10/03/24 07:05 36.5 C 89 18 143/48 H 100 10/03/24 06:29 36.5 C 86 16 144/56 H 97 10/03/24 05:31 36.5 C 84 16 126/67 97 10/03/24 05:01 36.6 C 82 16 109/57 L 96 10/03/24 04:46 36.6 C 85 16 109/65 97 10/03/24 04:38 37.4 C 88 16 115/67 96 10/03/24 04:27 36.3 C L 92 H 18 121/88 98 10/03/24 00:07 36.7 C 82 18 134/78 96 10/02/24 23:31 36.3 C L 90 18 138/79 98 10/02/24 23:27 81 O2 Del Method O2 Flow Rate 10/03/24 08:00 10/03/24 07:08 2 10/03/24 07:05 10/03/24 06:29 10/03/24 05:31 10/03/24 05:01 10/03/24 04:46 10/03/24 04:38 10/03/24 04:27 10/03/24 00:07 10/02/24 23:31 Room Air 10/02/24 23:27
[2024-10-03] MEDS: REMOVE LIDODERM PATCH SCH (11:33)
--- NOTE | 2024-10-03 11:55 | Electrocardiogram Report ---
Test Reason : Blood Pressure : */* mmHG Vent. Rate : 108 BPM Atrial Rate : 108 BPM P-R Int : 154 ms QRS Dur : 98 ms QT Int : 324 ms P-R-T Axes : 23 -35 72 degrees QTcB Int : 434 ms Sinus tachycardia Left axis deviation Minimal voltage criteria for LVH, may be normal variant Poor R wave progression, consider anterior WI vs. lead placement vs. LVH Abnormal ECG No previous ECGs available Confirmed by Surjit Duong ([id number]) on 10/03/2024 11:55:32 AM Referred By: REFERRED SELF Confirmed By: Surjit Duong
[2024-10-03] MEDS: HYDROmorphone INJ 0.5 MG/0.5 ML SYR IV PRN (12:20)
--- NOTE | 2024-10-03 12:55 | CT Scan Report ---
CT lumbar spine wo con HISTORY: 84 years-old Female fracture acute low back pain COMPARISON: CT abdomen and pelvis 10/02/2024 9925 TECHNIQUE: Multiple axial CT images of the lumbar spine obtained without IV contrast. A dose lowering technique was used consistent with the principals of ALARA. FINDINGS: Demineralized appearance of the bones. L3 burst fracture with severe vertebral body height loss in 6 mm retropulsion redemonstrated which is unchanged from yesterday's CT study, however demonstrates pro gressive vertebral body height loss compared to 09/02/2024 and worsening retropulsion. Mild multilevel intervertebral disc space narrowing with spondylitic spurring. Suboptimal evaluation of the central canal and neural foramen by CT technique. There is however severe central canal stenosis at L2-L3 wit h AP dimension of the central canal measuring approximately 5 mm. Multilevel neural foraminal narrowi ng throughout the lumbar spine. Distended urinary bladder. Mild nonspecific bilateral perinephric stranding. Cholecystectomy. IMPRESSION: 1. L3 burst fracture with 6 mm retropulsion demonstrates progressive vertebral body height loss jaswinder red to the 09/02/2024 study compatible with acute on subacute deformity. 2. Severe central canal stenosis at L2-L3. ACT 112: Negative or not required by law. The above report was generated using voice recognition software. It may contain grammatical, syntax o r spelling errors. Electronically signed by: Benitez Granados M.D. 10/03/2024 12:53 PM
--- NOTE | 2024-10-03 13:00 | Gastrointestinal Consultation ---
Date of Consultation October 03, 2024 Assessment & Plan (1) Acute upper GI bleed: (2) Symptomatic anemia: (3) Hypotension: (4) Liver lesion: (5) Chronic anemia: (6) CKD (chronic kidney disease): Plan The patient is an 84-year-old with multiple comorbid illnesses including miky nary disease, aortic stenosis, aortic valve replacement on chronic anticoagulation with Coumadin presenting with symptomatic anemia and melena. 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 Iron indices suggest anemia of chronic disease as well. In light of melena however recommend EGD and colonoscopy for further evaluation. Anticipate procedures for 10/05/2024 Clear liquid diet 10/04/2024. N.p.o. past midnight, GoLytely preparation 10/04/2024 will be ordered Maintain patient on proton pump inhibitor Liver lesion appears stable. The patient has been following with Dr. Fields for this. No further intervention or workup for this is recommended at this time. History of Present Illness Reason for Consultation: Anemia, melena Attending Physician: Yanelis Garcia MD History of Present Illness The patient is an 84-year-old woman with numerous comorbidities including coronary artery disease, aortic stenosis, aortic valve replacement on chronic anticoagulation with Coumadin, hypertension, thrombocytopenia, type 2 diabetes, smoldering multiple myeloma who presents with hypotension and significant anem ia. The patient's baseline hemoglobin is 10 down to 6 on presentation. She was reported to have multiple episodes of melena as an outpatient. Other relevant lab work includes elevated BUN and creatinine, thrombocytopenia with a platelet count of 129, normal INR. CT imaging shows a stable liver mass measuring 8 cm in size. The patient denies symptoms of nausea, vomiting, odynophagia, dysphagia, early satiety, unexplained weight loss or any irregular bowel habit. Allergies Allergy/AdvReac Type Severity Reaction Status Date / Time No Known Allergies Allergy Verified 09/13/24 10:02 Home Medications Medication Instructions Recorded Confirmed Type acetaminophen 500 mg capsule 1,000 mg PO TID 09/13/24 10/02/24 History amlodipine 5 mg tablet 5 mg PO BID 09/13/24 10/02/24 History furosemide 20 mg tablet 20 mg PO QAM 09/13/24 10/02/24 History lisinopril 20 mg tablet 20 mg PO BID 09/13/24 10/02/24 History metformin 500 mg tablet,extended 500 mg PO QAM 09/13/24 10/02/24 History release 24 hr simvastatin 20 mg tablet 20 mg PO PM 09/13/24 10/02/24 History warfarin 5 mg tablet (Jantoven) 5 mg PO HS 09/13/24 10/02/24 History tramadol 50 mg tablet 50 mg PO Q6 PRN mod-severe pain 10/02/24 10/02/24 History Patient History Medical History Aortic valve disease s/p AVR (2005) Echo 07/[address] Eric/[facility] Reason for Jantoven/warfarin CAD (coronary artery disease) Cardiac cath 2021: mild non-obstructive CAD Carotid artery disease Carotid doppler 06/2024: 50-69% DIANA stenosis. <50% LICA stenosis. Chronic anemia Acute on chronic- being followed closely by PCP + heme/onc Stable hgb in 9's CKD (chronic kidney disease) Diabetes mellitus, type 2 History of gallbladder disease No recent issues Hyperlipidemia Hypertension Liver lesion Follows with Dr. Fields/[facility] Multiple myeloma "Smoldering" Follows with Dr. Fields/[facility] Hx infusions, no current tx Osteoarthritis Surgical History Aortic valve replaced 10/2005, mechanical valve History of cardiac cath 2005- no stents 03/2022- no stents, mild non-obstructive CAD History of cataract surgery R/L History of colonoscopy History of dilatation and curettage History of tonsillectomy Family History Mother Diabetes Son Diabetes Social History Smoking Status: Never smoker Second Hand Exposure: No; Do You Dip or Chew Tobacco: No; Tobacco Cessation Education Requested by Patient: No Hx Alcohol Use: No Hx Substance Use: No Preferred Language: Indonesian Communication Ability: Effective [employer] Required: No Beliefs That Will Affect Care: None Current Living Situation: Spouse Other Information That Helps Us Care for You: No Feels Safe at Home: Yes Safety Concerns: Feels Safe At This Time Assistive Devices: Glasses and Walker Review of Systems Constitutional: + malaise and + weakness; no fever, no s weats and no weight loss Eyes: no problem reported Ear, Nose, Mouth, Throat: no epistaxis, no bleeding gums, no hoarseness and no dysphagia Respiratory: no cough, no chest congestion, no dyspnea, no hemoptysis and no sputum production Cardiovascular: no chest pain, no chest pain at rest, no chest pain with activity, no dyspnea at rest, no paroxysmal nocturnal dyspnea and no lightheadedness Gastrointestinal: as per Subjective / HPI Genitourinary: no problem reported Musculoskeletal: + stiffness and + limited range of motio n Integumentary: no rash Neurologic: no problem reported Endocrine: no problem reported Hematologic / Lymphatic: + easy bruising Allergy / Immunological: no GI upset with certain foods Physical Exam Constitutional: well nourished, healthy appearing and comfortable; no acute distress and not underweight ENMT: external ear and nose normal, oropharynx normal Neck: trachea midline, no thyromegaly Respiratory: Auscultation: lungs clear to auscultation bilaterally Cardiovascular: RRR, no murmur, no edema Gastrointestinal (Abdomen): normal bowel sounds, soft, nontender, no hepatosplenomegaly Musculoskeletal: no cyanosis or clubbing, extremities motor strength 5/5 Neurologic: moves all extremities and awake; not confused and not obtunded Psychiatric: A+Ox3, euthymic affect Results & Data Vital Signs (Past 12 Hours) Vital Signs Temp Pulse Pulse Resp BP BP Pulse Ox 10/03/24 11:46 36.5 C 87 18 138/70 100 10/03/24 08:00 88 10/03/24 07:08 36.5 C 89 18 143/48 H 100 10/03/24 07:05 36.5 C 89 18 143/48 H 100 10/03/24 06:29 36.5 C 86 16 144/56 H 97 10/03/24 05:31 36.5 C 84 16 126/67 97 10/03/24 05:01 36.6 C 82 16 109/57 L 96 10/03/24 04:46 36.6 C 85 16 109/65 97 10/03/24 04:38 37.4 C 88 16 115/67 96 10/03/24 04:27 36.3 C L 92 H 18 121/88 98 O2 Del Method O2 Flow Rate 10/03/24 11:46 Room Air 10/03/24 08:00 10/03/24 07:08 2 10/03/24 07:05 10/03/24 06:29 10/03/24 05:31 10/03/24 05:01 10/03/24 04:46 10/03/24 04:38 10/03/24 04:27 PG Care Time/CCT Total # of Minutes Spent Total Time Spent with Patient: Total time spent is greater than 50% in coordination of care (as documented) at patient's floor/unit and/or counseling patient: [place] [address] INT INP/OBS CARE 2/55MIN Patient Type New History Detailed Exam Detailed Medical Decision Making Moderate Complexity Diagnoses Acute upper GI bleed K92.2 Symptomatic anemia D64.9 Other specified hypotension I95.89 Hypotension type: other hypotension type Liver lesion K76.9 Chronic anemia D64.9 Chronic kidney disease, unspecified CKD stage N18.9 Chronic kidney disease stage: unspecified stage (3) Hypotension Hypotension type: other hypotension type Qualified Code(s): I95.89 - Other hypotension (6) CKD (chronic kidney disease) Chronic kidney disease stage: unspecified stage Qualified Code(s): N18.9 - Chronic kidney disease, unspecified
[2024-10-03] MEDS: CEFEPIME 1000MG 1,000 MG/10 ML SYR IV SCH (14:36)
[2024-10-03] MEDS ORDERED: LAVAGE SOLUTION 4000ML PO SCH (15:30)
[2024-10-03] MEDS: LAVAGE SOLUTION 4000ML PO SCH (16:28)
[2024-10-03 18:29] LABS: Hematocrit (blood only) 22.5 % (37.0-47.0); Hemoglobin 7.3 g/dl (12.0-16.0)
[2024-10-03] MEDS: SIMVASTATIN 20 MG TAB PO SCH (20:26)
[2024-10-03] MEDS: LANTUS PER UNIT CHARGE SQ SCH (20:27)
[2024-10-04] MEDS ORDERED: Nursing to Pharmacy Communication SCH (01:15)
[2024-10-04] MEDS: INSULIN ASPART PER UNIT CHARGE SC SCH ×2 (05:42→11:51)
[2024-10-04] MEDS ORDERED: LAVAGE SOLUTION 4000ML PO SCH (06:00)
[2024-10-04 07:17] LABS: Anion Gap 7.0 (3-11); Blood Urea Nitrogen 80.0 mg/dl (6-23); Calcium 8.1 mg/dl (8.6-10.3); Carbon Dioxide 23.0 mmol/L (21-32); Chloride 112.0 mmol/L (98-107); Creatinine Clr Calc Pharmacy 29.9 ml/min; Glucose 111.0 mg/dl (70-99(Fasting)); Magnesium 1.7 mg/dl (1.7-2.4); Potassium 4.5 mmol/L (3.5-5.1); Sodium 142.0 mmol/L (136-145)
[2024-10-04 07:31] LABS: Hematocrit (blood only) 21.9 % (37.0-47.0); Hemoglobin 7.1 g/dl (12.0-16.0); Mean Corpuscular Hemoglobin 29.8 pg (25.0-34.0); Mean Corpuscular Volume 92.0 fL (80.0-100.0); Platelet Count 85 K/uL (130-400); RDW Standard Deviation 54.1 fL (36.4-46.3); Red Blood Count 2.38 M/uL (4.20-5.40); White Blood Count 8.91 K/ul (4.8-10.8)
--- NOTE | 2024-10-04 08:49 | Gastroenterology Progress Note ---
Date of Service October 04, 2024 Assessment & Plan (1) Acute upper GI bleed: (2) Anemia requiring transfusions: Plan (1) Anemia r/t GI bleeding. - Poor prep over night, still passing brown stools. - Plan to do clear liquids throughout the day. - Restart Golytely split prep overnight. NPO except meds after midnight. - Continue to monitor H/H and transfuse as indicated per primary team. - Plan for EGD and Colonoscopy tomorrow. Admission and Anticipated Discharge Date Admission Date: October 02, 2024 Supervising Physician Co-Signing Physician Notes I saw and examined this patient with our nurse practitioner and agree with her assessment and plan. Incomplete bowel prep today hemoglobin stable hemodynamically stable. Will continue bowel prep today and plan for endoscopy and colonoscopy in AM. Subjective [id number] with h/o acute GI bleeding is seen today for follow on GI rounds with plans for EGD/Colonoscopy. Spoke with patient this morning and nursing staff. Patient didn't complete prep over night and is still passing brown stools. Hgb 7.1g/dl this morning. Stable with yesterday's being 7.3 g/dl. She denies any fevers, chills, abdominal pain, N/V/D. Physical Exam Physical Exam: Constitutional: NAD. Alert. Answering questions appropriately. Respiratory: Breathing is even, non-labored. Lungs connors are clear to auscultation anteriorly. Cardiovascular: Regular Rate and Rhythm, no murmurs, rubs or gallops appreciated. Gastrointestinal (Abdomen): Normoactive bowel sounds x4, soft, non-distended, non-tender. Musculoskeletal: Lying in bed comfortably. No peripheral edema. Results & Data Results & Data Vital Signs (Past 12 Hours) Vital Signs Temp Pulse Pulse Resp BP Pulse Ox O2 Del Method 10/04/24 08:01 80 10/04/24 07:34 98.1 F 70 18 148/62 H 99 Room Air 10/04/24 04:32 97.9 F 70 18 133/68 98 Room Air 10/04/24 00:00 76 10/03/24 23:26 98.1 F 65 18 125/69 99 Room Air PG Care Time/CCT Total # of Minutes Spent Total Time Spent with Patient: Total time spent is greater than 50% in coordination of care (as documented) at patient's floor/unit and/or counseling patient: Coding Level of Care Code 47752 SUB INP/OBS CARE 235MIN Diagnoses Acute upper GI bleed K92.2 Anemia requiring transfusions D64.9
[2024-10-04] MEDS: Nursing to Pharmacy Communication SCH (11:05)
--- NOTE | 2024-10-04 11:51 | Hospitalist Progress Note ---
Date of Service October 04, 2024 Assessment & Plan (1) Acute blood loss anemia: (2) Lumbar burst fracture: (3) Acute renal failure superimposed on stage 3 chronic kidney disease: (4) Diabetes mellitus, type 2: (5) Multiple myeloma: Plan: Follows with outpatient hematology/oncology (6) Warfarin anticoagulation: (7) H/O mechanical aortic valve replacement: (8) Liver lesion: Plan: Follows with Dr. Fields outpatient Plan Patient 84-year-old female presents with acute symptomatic anemia due to blood loss from presumed upper GI bleed. Patient on chronic anticoagulation for mechanical aortic valve. Patient has evidence of ongoing blood loss with her hemoglobin trending down despite blood transfusion, will continue to hold anticoagulation at this time Patient not sufficiently prepped for anticipated endoscopies today. Clear liquids with anticipate EGD and colonoscopy tomorrow Continue to monitor hemoglobin, transfuse if hemoglobin less than 7. Has been trending down since yesterday. Will recheck this afternoon Will need to resume anticoagulation as soon as possible after blood loss has been controlled Renal function has improved as well as her blood pressure with blood transfusions will continue to monitor Continue monitor glucose and coverage with insulin Updated son via phone Admission and Anticipated Discharge Date Admission Date: October 02, 2024 Subjective Patient denies any chest pain or shortness of breath. Was unable to fully complete the GI prep. But is having frequent stools now. Physical Exam Physical Exam: Constitutional: Alert, pale in appearance HEENT: Mucous membranes moist. Lungs: Decreased breath sounds CV: S1-S2, regular, mechanical click Abdomen: Soft, nontender, nondistended Extremities: No significant edema Neuro: No focal deficits, generally weak Psych: Cooperative, normal mood Results & Data Results & Data Vital Signs (Past 12 Hours) Vital Signs Temp Pulse Pulse Resp BP Pulse Ox O2 Del Method 10/04/24 11:41 37.0 C 80 18 139/60 98 Room Air 10/04/24 08:01 80 10/04/24 07:34 36.7 C 70 18 148/62 H 99 Room Air 10/04/24 04:32 36.6 C 70 18 133/68 98 Room Air 10/04/24 00:00 76 Diagnostic Findings Reviewed imaging, laboratory and diagnostic studies. Pertinent findings as below. Hemoglobin 7.1 slowly trending down posttransfusion Creatinine 1.45, slightly improved Other electrolytes stable
[2024-10-04 13:24] LABS: Hematocrit (blood only) 21.0 % (37.0-47.0); Hemoglobin 6.9 g/dl (12.0-16.0)
[2024-10-04] MEDS ORDERED: SODIUM CHLORIDE 0.9% 100 ML IV PRN (13:29)
[2024-10-04] MEDS: LAVAGE SOLUTION 4000ML PO SCH (14:43)
[2024-10-04] MEDS: PANTOprazole 40 MG/10 ML SYR IV SCH (19:51)
[2024-10-04 20:59] LABS: Hematocrit (blood only) 25.2 % (37.0-47.0); Hemoglobin 8.5 g/dl (12.0-16.0)
[2024-10-05] MEDS ORDERED: Nursing to Pharmacy Communication SCH ×2 (06:15→17:45)
[2024-10-05] MEDS: INSULIN ASPART PER UNIT CHARGE SC SCH ×2 (07:07→18:11)
[2024-10-05 08:27] LABS: Hematocrit (blood only) 28.9 % (37.0-47.0); Hemoglobin 9.6 g/dl (12.0-16.0); Mean Corpuscular Hemoglobin 29.8 pg (25.0-34.0); Mean Corpuscular Volume 89.8 fL (80.0-100.0); Platelet Count 97 K/uL (130-400); RDW Standard Deviation 52.4 fL (36.4-46.3); Red Blood Count 3.22 M/uL (4.20-5.40); White Blood Count 6.79 K/ul (4.8-10.8)
[2024-10-05 08:31] LABS: Anion Gap 7.0 (3-11); Blood Urea Nitrogen 38.0 mg/dl (6-23); Calcium 8.5 mg/dl (8.6-10.3); Carbon Dioxide 24.0 mmol/L (21-32); Chloride 113.0 mmol/L (98-107); Creatinine Clr Calc Pharmacy 35.7 ml/min; Glucose 90.0 mg/dl (70-99(Fasting)); Potassium 4.1 mmol/L (3.5-5.1); Sodium 144.0 mmol/L (136-145)
--- NOTE | 2024-10-05 08:57 | History & Physical Bridge Note ---
Date of Service October 05, 2024 History & Physical Bridge Note I have examined the patient, reviewed the History & Physical and in the interval since the performance of the History & Physical I have noted the following changes of clinical significance: no changes noted Spoke with patient today. She's passing clear fluids. Remain NPO. Plan for EGD and Colonoscopy as scheduled. Supervising Physician Co-Signing Physician Notes I saw and examined this patient with our nurse practitioner and agree with her assessment and plan. Will proceed with endoscopy and colonoscopy to further evaluate GI bleeding.
[2024-10-05] MEDS: SODIUM CHLORIDE 0.9% 500 ML IV SCH (13:42)
--- NOTE | 2024-10-05 14:00 | Anesthesiology Consultation ---
Date of Service October 05, 2024 Assessment & Plan Chart Review Chart Review: Acceptable Risk for Surgery ASA ASA3 Proposed Anesthesia Anesthesia Type: MAC Risk / Benefits Reviewed With: PT / POA / Parent / Guardian, Accepts Plan and Informed Consent Obtained History Surgery Operation Date: 10/04/24 17:25 Proposed Procedures p Colonoscopy EGD Dr. Christiano Alvarado MD Operation Date: 10/05/24 17:10 Proposed Procedures p Colonoscopy EGD Dr. Christiano Alvarado MD Height/Weight Height: 5 ft 2 in Weight: 80.1 kg Allergies Allergy/AdvReac Type Severity Reaction Status Date / Time No Known Allergies Allergy Verified 09/13/24 10:02 Medications Home Medications Medication Instructions Recorded Confirmed Last Taken acetaminophen 500 mg capsule 1,000 mg PO TID 09/13/24 10/02/24 Unknown amlodipine 5 mg tablet 5 mg PO BID 09/13/24 10/02/24 Unknown furosemide 20 mg tablet 20 mg PO QAM 09/13/24 10/02/24 Unknown lisinopril 20 mg tablet 20 mg PO BID 09/13/24 10/02/24 Unknown metformin 500 mg tablet,extended 500 mg PO QAM 09/13/24 10/02/24 Unknown release 24 hr simvastatin 20 mg tablet 20 mg PO PM 09/13/24 10/02/24 Unknown warfarin 5 mg tablet (Aprtoven) 5 mg PO HS 09/13/24 10/02/24 Unknown tramadol 50 mg tablet 50 mg PO Q6 PRN mod-severe pain 10/02/24 10/02/24 Unknown Active Medications Generic Name Dose Route Start Last Admin Trade Name Yvette PRN Reason Stop Dose Admin Acetaminophen 1,000 mg 10/03/24 09:00 10/05/24 13:02 Acetaminophen 500 Mg Tab PO 11/02/24 08:59 Not Given TID SHARON Hydromorphone HCl 0.25 mg 10/02/24 21:37 10/03/24 12:20 Hydromorphone Inj 0.5 Mg/0.5 Ml Syr IV 10/16/24 21:36 0.25 mg Q4H PRN Administration Pain Pantoprazole Sodium 40 mg in 10 mls @ 5 mls/min 10/04/24 21:00 10/05/24 08:18 Protonix IV 11/03/24 20:59 5 mls/min BID SHARON Administration Sodium Chloride 500 mls @ 15 mls/hr 10/05/24 07:30 10/05/24 13:43 Nss IV 10/06/24 07:29 Infused .Q24H SHARON Infusion Insulin Aspart 0 units 10/05/24 06:15 10/05/24 11:31 Insulin Aspart Per Unit Charge SC 11/03/24 11:29 Not Given Q6 SHARON Insulin Glargine 5 units 10/03/24 21:00 10/04/24 21:58 Lantus Per Unit Charge SQ 11/02/24 20:59 5 units HS SHARON Administration Lidocaine 1 patch 10/03/24 02:50 10/04/24 21:55 Lidocaine 5% 1 Patch TD 11/02/24 02:49 1 patch HS SHARON Administration Miscellaneous 1 each 10/03/24 12:00 10/05/24 08:18 Remove Lidoderm Patch N/A 11/02/24 11:59 1 each DAILY SHARON Administration Oxycodone HCl 5 mg 10/02/24 21:37 10/05/24 04:29 Oxycodone Hcl Ir 5 Mg Tab (Immediate Release) PO 10/16/24 21:36 5 mg Q4H PRN Administration Pain Simvastatin 20 mg 10/03/24 21:00 10/04/24 19:54 Simvastatin 20 Mg Tab PO 11/02/24 20:59 20 mg PM SHARON Administration NPO Date Last Intake of Fluids: 10/05/24 Time Last Intake of Fluids: 08:20 Last Intake of Fluids Comment: tylenol Date Last Intake of Solids: 10/02/24 Time Last Intake of Solids: 16:30 Past Medical History Medical History Aortic valve disease s/p AVR (2005) Echo 07/[address] Eric/[facility] Reason for Jantoven/warfarin CAD (coronary artery disease) Cardiac cath 2021: mild non-obstructive CAD Carotid artery disease Carotid doppler 06/2024: 50-69% DIANA stenosis. <50% LICA stenosis. Chronic anemia Acute on chronic- being followed closely by PCP + heme/onc Stable hgb in 9's CKD (chronic kidney disease) Diabetes mellitus, type 2 History of gallbladder disease No recent issues Hyperlipidemia Hypertension Liver lesion Follows with Dr. Fields/[facility] Multiple myeloma "Smoldering" Follows with Dr. Fields/[facility] Hx infusions, no current tx Osteoarthritis Exercise / Class Metabolic Activity II 4-5 Yardwork/Stairs/Walk up hill Past Family History Family History Mother Diabetes Son Diabetes Past Surgical History Surgical History Aortic valve replaced 10/2005, mechanical valve History of cardiac cath 2005- no stents 03/2022- no stents, mild non-obstructive CAD History of cataract surgery R/L History of colonoscopy History of dilatation and curettage History of tonsillectomy Past Anesthesia History No Hx of Anesthesia Complications History of PONV No Hx of PONV Social History Smoking Status: Never smoker Do You Dip or Chew Tobacco: No Hx Alcohol Use: No Hx Substance Use: No substance use type: does not use Review of Systems ROS Unobtainable: All systems reviewed & are unremarkable except as noted in HPI & below Physical Exam Vital Signs Last Vital Signs Temp 36.7 C 10/05/24 13:36 Pulse 72 10/05/24 13:36 Resp 18 10/05/24 13:36 BP 168/58 H 10/05/24 13:36 Pulse Ox 98 10/05/24 13:36 O2 Del Method Room Air 10/05/24 13:36 O2 Flow Rate 2 10/03/24 07:08 ENMT Thyromental Distance: > or= 3.5 Finger Breadths Mallampati Class: II Respiratory normal respiratory effort Auscultation: lungs clear to auscultation bilaterally Cardiovascular Rate/Rhythm: regular rate and regular rhythm Psychiatric Orientation: alert Testing Laboratory Results 10/05/24 07:56 10/05/24 07:56 PT 11.8 Seconds (9.0-12.0) 10/02/24 19:35 INR 1.1 (0.9-1.1) 10/02/24 19:35 Urine Color Yellow 10/03/24 01:34 Urine Appearance Clear (Clear) 10/03/24 01:34 Urine pH 5.0 (4.5-7.5) 10/03/24 01:34 Ur Specific [place] 1.017 (1.000-1.030) 10/03/24 01:34 Urine Protein Negative (Negative) 10/03/24 01:34 Urine Glucose (UA) Negative (Negative) 10/03/24 01:34 Urine Ketones Negative (Negative) 10/03/24 01:34 Urine Nitrite Negative (Negative) 10/03/24 01:34 Ur Leukocyte Esterase Negative (Negative) 10/03/24 01:34 Blood Type O Negative 10/02/24 19:37 Antibody Screen NEGATIVE 10/02/24 19:37 10/03/24 01:01 Aerobic Blood Culture - Preliminary Blood No growth in Aerobic bottle after 48 hours. Anaerobic Blood Culture - Final 10/03/24 01:01 Aerobic Blood Culture - Preliminary Blood No growth in Aerobic bottle after 48 hours. Anaerobic Blood Culture - Preliminary No growth in Anaerobic bottle after 48 hours. 10/05/24 10/05/24 11:22 06:13 POC Glucose 87 101 H
--- NOTE | 2024-10-05 15:56 | Anesthesiology Progress Note ---
Date of Service October 05, 2024 Anesthesia Post Procedure Vital Signs Vital Signs: Temp Pulse Pulse Pulse Resp BP BP 10/05/24 14:10 75 10/05/24 13:36 36.7 C 72 18 168/58 H 10/05/24 12:09 36.7 C 73 20 124/76 10/05/24 08:06 68 10/05/24 08:05 36.6 C 72 17 175/75 H 10/05/24 03:20 36.6 C 62 18 159/70 H 10/04/24 23:46 36.7 C 69 18 148/72 H 10/04/24 19:27 36.7 C 71 18 152/64 H 10/04/24 18:24 36.5 C 79 16 153/74 H 10/04/24 17:39 36.5 C 80 16 135/80 10/04/24 16:39 36.5 C 73 16 165/79 H 10/04/24 16:25 73 10/04/24 16:09 36.9 C 88 16 156/72 H Pulse Ox O2 Del Method 10/05/24 14:10 10/05/24 13:36 98 Room Air 10/05/24 12:09 94 Room Air 10/05/24 08:06 10/05/24 08:05 100 Room Air 10/05/24 03:20 98 Room Air 10/04/24 23:46 95 Room Air 10/04/24 19:27 99 Room Air 10/04/24 18:24 98 10/04/24 17:39 99 10/04/24 16:39 99 10/04/24 16:25 10/04/24 16:09 100 Pain Intensity Buttock: Pain Intensity: 8 Transfer of Care Handoff Completed per policy Notes Mental Status: alert / awake / arousable and participated in evaluation Nausea / Vomiting: adequately controlled Pain: adequately controlled Airway Patency, RR, SpO2: stable & adequate BP & HR: stable & adequate Hydration State: stable & adequate Anesthetic Complications: no major complications apparent and Pt Satisfied with anesthetic care
--- NOTE | 2024-10-05 16:35 | Hospitalist Progress Note ---
Date of Service October 05, 2024 Assessment & Plan (1) Acute blood loss anemia: (2) Lumbar burst fracture: (3) Acute renal failure superimposed on stage 3 chronic kidney disease: (4) Diabetes mellitus, type 2: (5) Multiple myeloma: Plan: Follows with outpatient hematology/oncology (6) Warfarin anticoagulation: (7) H/O mechanical aortic valve replacement: (8) Liver lesion: Plan: Follows with Dr. Fields outpatient (9) Pressure ulcer of buttock, unstageable: Plan: Present on admission Plan Patient 84-year-old female with symptomatic anemia due to acute blood loss from presumed upper GI source. Hemoglobin stable after transfusion 3 units PRBCs and holding her anticoagulation. Patient on chronic anticoagulation for mechanical aortic valve. Anticipated endoscopies today. Anticipate resuming anticoagulation this evening depending on endoscopy findings. Long discussion with patient and family at bedside about risks of bleeding but also weighing the risks of stroke with her mechanical aortic valve. Explained to them that I suspect that either way we will have to give a trial of anticoagulation and see how her hemoglobin responds. Continue monitoring glucose with insulin coverage Reviewed wound care images, continue with pressure offloading and dressings as recommended by wound care Patient will continue her outpatient appointments with hematology for her "smoldering" multiple myeloma and liver lesion Admission and Anticipated Discharge Date Admission Date: October 02, 2024 Subjective No acute issues overnight. Family at bedside. Aware for planned endoscopy today. Nursing reports that stools are clear and GI planning to proceed with endoscopy Physical Exam Physical Exam: Constitutional: Alert, nontoxic HEENT: Mucous membranes moist. Lungs: Clear to auscultation, decreased, no wheezes rales or rhonchi CV: S1-S2, regular, mechanical click Abdomen: Soft, nontender, nondistended Extremities: No significant edema Neuro: No focal deficits Psych: Cooperative, normal mood Results & Data Results & Data Vital Signs (Past 12 Hours) Vital Signs Temp Pulse Pulse Pulse Resp BP Pulse Ox 10/05/24 16:07 64 16 147/54 H 100 10/05/24 15:50 65 18 135/64 100 10/05/24 15:36 72 16 135/64 100 10/05/24 14:10 75 10/05/24 13:36 36.7 C 72 18 168/58 H 98 10/05/24 12:09 36.7 C 73 20 124/76 94 10/05/24 08:06 68 10/05/24 08:05 36.6 C 72 17 175/75 H 100 O2 Del Method 10/05/24 16:07 Room Air 10/05/24 15:50 Room Air 10/05/24 15:36 Room Air 10/05/24 14:10 10/05/24 13:36 Room Air 10/05/24 12:09 Room Air 10/05/24 08:06 10/05/24 08:05 Room Air Diagnostic Findings Reviewed imaging, laboratory and diagnostic studies. Pertinent findings as below. Hemoglobin 9.6, stable and improved Creatinine 1.19
--- NOTE | 2024-10-05 17:12 | GI REPORT ---
[facility] [address] Patient: YASIR KNOX : 1940 Sex at : Female Age: 84 Years Procedure: Colonoscopy Date: 10/05/2024 Attending Physician: Brett Alvarado MD Referring MD: Raffi Lam DO Indications: - GI bleed Medications: - Monitored Anesthesia Care Complications: - No immediate complications. Procedure: - Prior to the procedure, a History and Physical was performed, and patient medications and allergies were reviewed. The patient's tolerance of previous anesthesia was also reviewed. The risks and benefits of the procedure and the sedation options and risks were discussed with the patient. All questions were answered, and informed consent was obtained. [Anticoagulant Agents] [Days Prior to Procedure]. [ASA Grade]. After reviewing the risks and benefits, the patient was deemed in satisfactory condition to undergo the procedure. - The adult colonoscope was introduced through the anus and advanced to the cecum, identified by appendiceal orifice and ileocecal valve. - The colonoscopy was performed without difficulty. - The patient tolerated the procedure well. - The quality of the bowel preparation was [Prep Quality]. - [Anatomical Structures] photographed. Findings: - A few diverticula were found in the sigmoid colon and descending colon. - The exam was otherwise without abnormality. Impression: - Diverticulosis in the sigmoid colon and in the descending colon. - The examination was otherwise normal. - No specimens collected. Recommendation: - Resume previous diet. - Patient has a contact number available for emergencies. The signs and symptoms of potential delayed complications were discussed with the patient. Return to normal activities tomorrow. Written discharge instructions were provided to the patient. Procedure Code(s): - 93591, Colonoscopy, flexible; diagnostic, including collection of specimen(s) by brushing or washing, when performed (separate procedure) Diagnosis Code(s): - K57.30, Diverticulosis of large intestine without perforation or abscess without bleeding CPT(R) - 2023 copyright [employer]. All Rights Reserved. The CPT codes, CCI edits and ICD codes generated are intended as suggestions and were generated based on input data. These codes are preliminary and upon medical billing coder review may be revised to meet current compliance and payer requirements. The provider is responsible for the final determination of appropriate codes, and modifiers. Brett Alvarado MD This document has been electronically signed. Note Initiated:10/05/2024 Note Completed:10/05/2024 5:11 PM \\[email or web address]\[email or web address]\Data\Provation\Results\LIVE\[id number].pdf
--- NOTE | 2024-10-05 17:16 | GI REPORT ---
[facility] Patient: YASIR KNOX : 1940 Sex at : Female Age: 84 Years Procedure: Upper GI endoscopy Date: 10/05/2024 Attending Physician: Brett Alvarado MD Referring MD: Raffi Lam DO Indications: - Suspected upper gastrointestinal bleeding Medications: - Monitored Anesthesia Care Complications: - No immediate complications. Procedure: - Prior to the procedure, a History and Physical was performed, and patient medications and allergies were reviewed. The patient's tolerance of previous anesthesia was also reviewed. The risks and benefits of the procedure and the sedation options and risks were discussed with the patient. All questions were answered, and informed consent was obtained. [Anticoagulant Agents] [Days Prior to Procedure]. [ASA Grade]. After reviewing the risks and benefits, the patient was deemed in satisfactory condition to undergo the procedure. - The egd scope was introduced through the mouth and advanced to the second part of the duodenum. - The upper GI endoscopy was accomplished without difficulty. - The patient tolerated the procedure well. Findings: - There were esophageal mucosal changes present in the lower third of the esophagus suspicious for long-segment Diaz's esophagus. The maximum longitudinal extent of these mucosal changes was 6 cm in length. Mucosa was biopsied with a cold forceps for histology. - One cratered esophageal ulcer with no stigmata of recent bleeding was found in the lower third of the esophagus. The lesion was 20 mm in largest dimension. Biopsies were taken with a cold forceps for histology. - The entire examined stomach was normal. - The examined duodenum was normal. 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 Biopsied. - Esophageal ulcer with no stigmata of recent bleeding. Biopsied. - Normal stomach. - Normal examined duodenum. Recommendation: - Resume previous diet. - Patient has a contact number available for emergencies. The signs and symptoms of potential delayed complications were discussed with the patient. Return to normal activities tomorrow. Written discharge instructions were provided to the patient. Procedure Code(s): - 09200, Esophagogastroduodenoscopy, flexible, transoral; with biopsy, single or multiple Diagnosis Code(s): - K22.10, Ulcer of esophagus without bleeding - K22.89, Other specified disease of esophagus CPT(R) - 2023 copyright [employer]. All Rights Reserved. The CPT codes, CCI edits and ICD codes generated are intended as suggestions and were generated based on input data. These codes are preliminary and upon catalogue clerk review may be revised to meet current compliance and payer requirements. The provider is responsible for the final determination of appropriate codes, and modifiers. Brett Alvarado MD This document has been electronically signed. Note Initiated:10/05/2024 Note Completed:10/05/2024 5:15 PM \\[email or web address]\Central\InterfaceData\Data\Provation\Results\LIVE\[id number]
[2024-10-05] MEDS: LIDOCAINE 2% 2 ML VIAL/AMP(20MG/ML) INFIL ONE (17:29)
[2024-10-05] MEDS: PROPOFOL IV EMULSION 10 MG/ML 20 ML VIAL IV ONE (17:29)
[2024-10-05] MEDS: PHENYLEPHRINE HCL 10 MG/ML VIAL ONE (17:29)
[2024-10-05] MEDS: ENOXAPARIN 80 MG/0.8 ML SYR SC SCH (18:08)
[2024-10-05] MEDS: WARFARIN SOD 5 MG TAB PO SCH (18:08)
[2024-10-06 07:04] LABS: Hematocrit (blood only) 27.3 % (37.0-47.0); Hemoglobin 8.6 g/dl (12.0-16.0); Immature Granulocytes # (auto) 0.18 K/uL (0.01-0.20); Immature Granulocytes % (auto) 3.6 %; Mean Corpuscular Hemoglobin 29.4 pg (25.0-34.0); Mean Corpuscular Volume 93.2 fL (80.0-100.0); Platelet Count 91 K/uL (130-400); RDW Standard Deviation 55.8 fL (36.4-46.3); Red Blood Count 2.93 M/uL (4.20-5.40); White Blood Count 5.01 K/ul (4.8-10.8)
[2024-10-06 07:29] LABS: Anion Gap 6.0 (3-11); Blood Urea Nitrogen 24.0 mg/dl (6-23); Calcium 8.1 mg/dl (8.6-10.3); Carbon Dioxide 25.0 mmol/L (21-32); Chloride 112.0 mmol/L (98-107); Creatinine Clr Calc Pharmacy 38.3 ml/min; Glucose 90.0 mg/dl (70-99(Fasting)); Potassium 3.9 mmol/L (3.5-5.1); Sodium 143.0 mmol/L (136-145)
[2024-10-06 07:39] LABS: INR 1.1 (0.9-1.1); Prothrombin Time 11.9 Seconds (9.0-12.0)
--- NOTE | 2024-10-06 08:50 | Gastroenterology Progress Note ---
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 No signs of melena since 0400 at 10/04/24. H/H stable since 10/04/24. Hgb today 8.6g/dl. (1) Anemia r/t GI bleeding. - Continue with Pantoprazole 40mg BID. - Recommend avoidance of NSAIDs, alcohol and tobacco products. - Reviewed EGD results with patient. Understanding voiced. - We'll plan to f/u in 2-3 weeks to re-assess her clinically. Further f/u to come with results of biopsies. - Therefore we'll likely plan to sign off from GI perspective. - Please feel free to reach out with any concerns. Thank you kindly for the consultation. - Further recommendations to come with Supervising GI provider on medical rounds. Please see co-signature comments. Admission and Anticipated Discharge Date Admission Date: October 02, 2024 Supervising Physician Co-Signing Physician Notes I saw and examined this patient with our nurse practitioner and agree with her assessment and plan. Stable post endoscopic procedures. Findings significant for esophageal ulcer and Diaz's esophagus. The ulcer could be the explanation for her blood loss. The ulcer appears to be healing. Continue pantoprazole twice a day. She will follow-up with GI as an outpatient. Subjective 83yowf with h/o acute GI bleeding is seen today for follow on GI rounds for anemia with suspected GI bleeding s/p EGD/Colonoscopy evaluation 10/05/24. She completed EGD and Colonoscopy 10/05/24 which revealed a esophageal ulcer concerning for long segment Diaz's esophagitis. Biopsies pending. Recommend ongoing treatment with Pantoprazole 40mg BID with GI follow up in outpatient for review of biopsies and further EGD follow up recommendations. Hgb 8.6g/dl this morning. Stable with yesterday's being 9.6g/dl. Last black liquid stool was at 0400 on 10/04/24. No signs of red blood or melena since then on review of stools. She denies any fevers, chills, abdominal pain, N/V/D, melena or hematochezia. Review of Systems Review of Systems: See HPI Physical Exam Physical Exam: Constitutional: NAD. Alert. Answering questions appropriately. Respiratory: Breathing is even, non-labored. Lungs connors are clear to auscultation anteriorly. Cardiovascular: Regular Rate and Rhythm, no murmurs, rubs or gallops appreciated. Gastrointestinal (Abdomen): Normoactive bowel sounds x4, soft, non-distended, non-tender. Musculoskeletal: Lying in bed comfortably. No peripheral edema. Results & Data Results & Data Vital Signs (Past 12 Hours) Vital Signs Temp Pulse Resp BP Pulse Ox O2 Del Method 10/06/24 07:27 98.0 F 66 16 154/53 H 97 Room Air 10/05/24 22:11 97.9 F 68 18 146/62 H 96 Room Air Laboratory Results Laboratory Results - last 48 hr 10/02/24 10/04/24 10/04/24 19:37 16:01 20:07 WBC RBC Hgb Hct MCV MCH MCHC RDW Std Deviation RDW Coeff of Nora Plt Count MPV Immature Gran % (Auto) Neut % (Auto) Lymph % (Auto) Licking % (Auto) Eos % (Auto) Baso % (Auto) Neut # (Auto) Lymph # (Auto) Licking # (Auto) Eos # (Auto) Baso # (Auto) Immature Gran # (Auto) PT INR Sodium Potassium Chloride Carbon Dioxide Anion Gap BUN Creatinine Est Cr Clr Drug Dosing eGFR BUN/Creatinine Ratio Glucose POC Glucose 104 H 160 H Calcium Blood Type O Negative Antibody Screen NEGATIVE Crossmatch See Detail 10/04/24 10/05/24 10/05/24 20:48 06:13 07:56 WBC 6.79 RBC 3.22 L Hgb 8.5 L 9.6 L Hct 25.2 L 28.9 L MCV 89.8 MCH 29.8 MCHC 33.2 RDW Std Deviation 52.4 H RDW Coeff of Nora 16.8 H Plt Count 97 L MPV 11.3 Immature Gran % (Auto) Neut % (Auto) Lymph % (Auto) [place] % (Auto) Eos % (Auto) Baso % (Auto) Neut # (Auto) Lymph # (Auto) [place]icking # (Auto) Eos # (Auto) Baso # (Auto) Immature Gran # (Auto) PT INR Sodium 144 Potassium 4.1 Chloride 113 H Carbon Dioxide 24 Anion Gap 7 BUN 38 H D Creatinine 1.19 Est Cr Clr Drug Dosing 35.7 eGFR 45.65 BUN/Creatinine Ratio 31.9 H Glucose 90 POC Glucose 101 H Calcium 8.5 L Blood Type Antibody Screen Crossmatch 10/05/24 10/05/24 10/05/24 11:22 18:03 20:45 WBC RBC Hgb Hct MCV MCH MCHC RDW Std Deviation RDW Coeff of Nora Plt Count MPV Immature Gran % (Auto) Neut % (Auto) Lymph % (Auto) Licking % (Auto) Eos % (Auto) Baso % (Auto) Neut # (Auto) Lymph # (Auto) Licking # (Auto) Eos # (Auto) Baso # (Auto) Immature Gran # (Auto) PT INR Sodium Potassium Chloride Carbon Dioxide Anion Gap BUN Creatinine Est Cr Clr Drug Dosing eGFR BUN/Creatinine Ratio Glucose POC Glucose 87 81 134 H Calcium Blood Type Antibody Screen Crossmatch 10/06/24 10/06/24 10/06/24 06:16 07:41 11:38 WBC 5.01 RBC 2.93 L Hgb 8.6 L Hct 27.3 L MCV 93.2 MCH 29.4 MCHC 31.5 L RDW Std Deviation 55.8 H RDW Coeff of Nora 17.1 H Plt Count 91 L MPV 11.5 Immature Gran % (Auto) 3.6 Neut % (Auto) 46.3 Lymph % (Auto) 22.2 Licking % (Auto) 27.3 Eos % (Auto) 0.4 Baso % (Auto) 0.2 Neut # (Auto) 2.32 Lymph # (Auto) 1.11 L Licking # (Auto) 1.37 H Eos # (Auto) 0.02 Baso # (Auto) 0.01 Immature Gran # (Auto) 0.18 PT 11.9 INR 1.1 Sodium 143 Potassium 3.9 Chloride 112 H Carbon Dioxide 25 Anion Gap 6 BUN 24 H Creatinine 1.11 Est Cr Clr Drug Dosing 38.3 eGFR 49.63 BUN/Creatinine Ratio 21.6 H Glucose 90 POC Glucose 107 H 171 H Calcium 8.1 L Blood Type Antibody Screen Crossmatch PG Care Time/CCT Total # of Minutes Spent Total Time Spent with Patient: Total time spent is greater than 50% in coordination of care (as documented) at patient's floor/unit and/or counseling patient: Coding Level of Care Code 19535 SUB INP/OBS CARE 235MIN Diagnoses Acute upper GI bleed K92.2 Esophageal ulceration K22.10 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
[2024-10-06] MEDS ORDERED: HYDROmorphone INJ 0.5 MG/0.5 ML SYR IV PRN (12:20)
[2024-10-06] MEDS: dexAMETHasone 4 MG in SYRINGE 0 ML IV ONE (13:01)
--- NOTE | 2024-10-06 15:21 | Hospitalist Progress Note ---
Date of Service October 06, 2024 Assessment & Plan (1) Acute blood loss anemia: Plan: -Hgb stable at this time -EGD revealed long segment Barretts esophagus -needs anticoagulation due to aortic valve replacement Plan: -continue warfarin/lovenox bridging -trend CBC daily -continue protonix 40 bid -GI consulted, appreciate recs (2) Lumbar burst fracture: Plan: -causing significant limitation in mobility -tenderness to palpation, shoots down left leg -patient not great surgical candidate would not help radicular component of pain Plan: -ortho consult, appreciate recs -start decadron 4mg IV daily for inflammatory component of pain -avoid NSAIDs given bleed -continue lidocaine patch -start pregablin 25mg bid for neuropathic component of pain -increase oxycodone 7.5mg q4hr for severe pain and dilaudid 0.5 mg q4hr prn for breakthrough pain -possible discharge to SNF tomorrow, will touch base with ortho regarding kyphoplasty but unlikely to be significantly helpful in this setting and high s urgical risk (3) Acute renal failure superimposed on stage 3 chronic kidney disease: Plan: -creatinine at baseline (4) Diabetes mellitus, type 2: Plan: -continue SSI (5) Multiple myeloma: Plan: -Follows with outpatient hematology/oncology (6) Warfarin anticoagulation: Plan: -see above (7) H/O mechanical aortic valve replacement: Plan: -see above (8) Liver lesion: Plan: -Follows with Dr. Fields outpatient (9) Pressure ulcer of buttock, unstageable: Plan: -Present on admission -wound care Plan I spent a total of 50 minutes in direct patient care, including [id number] time with the patient and/or family, reviewing medical records, ordering and reviewing diagnostic tests, and coordinating care with other healthcare providers. This time includes: history taking, physical examination, medical decision making, counseling, ECG interpretation, imaging interpretation, lab interpretation, orders, and education, excluding time spent in the performance of separately billed services. Admission and Anticipated Discharge Date Admission Date: October 02, 2024 Subjective Patient seen and examined at bedside. Patient in a lot of pain at this time. Otherwise feels well. Review of Systems Review of Systems: CONSTITUTIONAL: Patient denies fevers, chills, sweats and weight changes. EYES: Patient denies any visual symptoms. EARS, NOSE, AND THROAT: No difficulties with hearing. No symptoms of rhinitis or sore throat. CARDIOVASCULAR: Patient denies chest pains, palpitations, orthopnea and paroxysmal nocturnal dyspnea. RESPIRATORY: No dyspnea on exertion, no wheezing or cough. GI: No nausea, vomiting, diarrhea, constipation, abdominal pain, hematochezia or melena. : No urinary hesitancy or dribbling. No nocturia or urinary frequency. No abnormal urethral discharge. MUSCULOSKELETAL: back pain NEUROLOGIC: No chronic headaches, no seizures. Patient denies numbness, tingling or weakness. PSYCHIATRIC: Patient denies problems with mood disturbance. No problems with anxiety. ENDOCRINE: No excessive urination or excessive thirst. DERMATOLOGIC: Patient denies any rashes or skin changes. Physical Exam Physical Exam: Gen: A&O 3 NAD HEENT: NCAT, EOMI, not icteric. External ears normal. No rhinorrhea. Moist mucous membranes. Neck: Supple, full range of motion, no observable masses, No meningeal sign. Lungs: No Respiratory distress. CV: RRR, no edema. Abdomen: Soft, nondistended, No rebound tenderness. MSK: tenderness to palpation in left lateral transverse process L4 recess, pain shoots down left leg Skin: No rashes, petechiae, lesions. Normal color per patient. Neuro: Normal Gait, Grossly intact. Psych: Appropriate for situation. Results & Data Results & Data Vital Signs (Past 12 Hours) Vital Signs Temp Pulse Resp BP Pulse Ox O2 Del Method 10/06/24 14:02 36.5 C 69 18 116/76 93 Room Air 10/06/24 07:27 36.7 C 66 16 154/53 H 97 Room Air Laboratory Results -personally reviewed, Hgb stable today Medications Administered Acetaminophen (Acetaminophen 500 Mg Tab) 1,000 mg PO TID [facility] Stop: 11/02/24 08:59 Last Admin: 10/06/24 13:01 Dose: 1,000 mg Documented By: Admin: 10/06/24 08:15 Dose: 1,000 mg Documented By: Admin: 10/05/24 21:15 Dose: 1,000 mg Documented By: Admin: 10/05/24 13:02 Dose: Not Given Documented By: Admin: 10/05/24 08:18 Dose: 1,000 mg Documented By: Admin: 10/04/24 22:11 Dose: 1,000 mg Documented By: Admin: 10/04/24 13:52 Dose: 1,000 mg Documented By: Admin: 10/04/24 08:15 Dose: 1,000 mg Documented By: Admin: 10/03/24 20:26 Dose: 1,000 mg Documented By: Admin: 10/03/24 14:36 Dose: 1,000 mg Documented By: Admin: 10/03/24 10:06 Dose: 1,000 mg Documented By: GDH Enoxaparin Sodium (Enoxaparin 80 Mg/0.8 Ml Syr) 80 mg SC Q12H SHARON Stop: 11/04/24 17:29 Last Admin: 10/06/24 05:12 Dose: 80 mg Documented By: Admin: 10/05/24 18:08 Dose: 80 mg Documented By: PK Insulin Aspart (Insulin Aspart Per Unit Charge) 0 units SC ACHS SHARON Stop: 11/04/24 06:14 Last Admin: 10/06/24 12:35 Dose: 1 units Documented By: RT Co-signed By: NELI Admin: 10/06/24 08:08 Dose: 1 units Documented By: RT Co-signed By: NATHALY Admin: 10/05/24 21:01 Dose: Not Given Documented By: Admin: 10/05/24 18:11 Dose: Not Given Documented By: PK Insulin Glargine (Lantus Per Unit Charge) 5 units SQ HS SHARON Stop: 11/02/24 20:59 Last Admin: 10/05/24 21:11 Dose: Not Given Documented By: Admin: 10/04/24 21:58 Dose: 5 units Documented By: KACI Co-signed By: DALE Admin: 10/03/24 20:27 Dose: 5 units Documented By: LMP Co-signed By: TYSON Lidocaine (Lidocaine 5% 1 Patch) 1 patch TD HS SHARON Stop: 11/02/24 02:49 Last Admin: 10/05/24 21:12 Dose: 1 patch Documented By: Admin: 10/04/24 21:55 Dose: 1 patch Documented By: Admin: 10/03/24 20:28 Dose: 1 patch Documented By: Admin: 10/03/24 03:02 Dose: Not Given Documented By: ALW Miscellaneous (Remove Lidoderm Patch) 1 each N/A DAILY SHARON Stop: 11/02/24 11:59 Last Admin: 10/06/24 08:21 Dose: 1 each Documented By: Admin: 10/05/24 08:18 Dose: 1 each Documented By: Admin: 10/04/24 08:15 Dose: 1 each Documented By: Admin: 10/03/24 11:33 Dose: 1 each Documented By: GDLissette Oxycodone HCl (Oxycodone Hcl Ir 5 Mg Tab (Immediate Release)) 7.5 mg PO Q4H PRN PRN Reason: Severe Pain (Scale 7, 8, 9,10) Stop: 10/16/24 21:36 Last Admin: 10/06/24 12:37 Dose: 7.5 mg Documented By: RT Pantoprazole Sodium (Pantoprazole 40 Mg Tab) 40 mg PO BID [facility] Stop: 11/04/24 20:59 Last Admin: 10/06/24 08:04 Dose: 40 mg Documented By: Admin: 10/05/24 21:11 Dose: 40 mg Documented By: JUSTINO Simvastatin (Simvastatin 20 Mg Tab) 20 mg PO PM SHARON Stop: 11/02/24 20:59 Last Admin: 10/05/24 21:12 Dose: 20 mg Documented By: Admin: 10/04/24 19:54 Dose: 20 mg Documented By: Admin: 10/03/24 20:26 Dose: 20 mg Documented By: SUMAN Warfarin Sodium (Warfarin Sod 5 Mg Tab) 5 mg PO DAILY@1600 [facility] Stop: 11/04/24 17:24 Last Admin: 10/05/24 18:08 Dose: 5 mg Documented By: PK
[2024-10-06] MEDS: PREGABALIN 25 MG CAP PO SCH (20:54)
[2024-10-07 06:56] LABS: Hematocrit (blood only) 25.7 % (37.0-47.0); Hemoglobin 8.4 g/dl (12.0-16.0); Mean Corpuscular Hemoglobin 30.0 pg (25.0-34.0); Mean Corpuscular Volume 91.8 fL (80.0-100.0); Platelet Count 88 K/uL (130-400); RDW Standard Deviation 51.8 fL (36.4-46.3); Red Blood Count 2.80 M/uL (4.20-5.40); White Blood Count 4.97 K/ul (4.8-10.8)
[2024-10-07 07:17] LABS: Anion Gap 5.0 (3-11); Blood Urea Nitrogen 26.0 mg/dl (6-23); Calcium 8.2 mg/dl (8.6-10.3); Carbon Dioxide 26.0 mmol/L (21-32); Chloride 109.0 mmol/L (98-107); Creatinine Clr Calc Pharmacy 40.0 ml/min; Glucose 106.0 mg/dl (70-99(Fasting)); Magnesium 1.4 mg/dl (1.7-2.4); Potassium 4.2 mmol/L (3.5-5.1); Sodium 140.0 mmol/L (136-145)
[2024-10-07 07:25] LABS: INR 1.1 (0.9-1.1); Prothrombin Time 12.3 Seconds (9.0-12.0)
--- NOTE | 2024-10-07 14:11 | Hospitalist Progress Note ---
Date of Service October 07, 2024 Assessment & Plan (1) Acute blood loss anemia: Plan: -Hgb stable at this time -EGD revealed long segment Barretts esophagus -needs anticoagulation due to aortic valve replacement Plan: -continue warfarin/lovenox bridging -trend CBC daily -continue protonix 40 bid -GI consulted, appreciate recs -increase warfarin to 7.5 mg tonight (2) Lumbar burst fracture: Plan: -causing significant limitation in mobility -tenderness to palpation, shoots down left leg -patient not great surgical candidate would not help radicular component of pain Plan: -ortho consult, appreciate recs -start decadron 4mg IV daily for inflammatory component of pain -avoid NSAIDs given bleed -continue lidocaine patch -increase pregablin to 25mg tid for neuropathic component of pain -continuie oxycodone 7.5mg q4hr for severe pain and dilaudid 0.5 mg q4hr prn for breakthrough pain -discussed case with pain management, not candidate for steroid injection at this time, RFA only performed outpatient -likely discharge to SNF tomorrow (3) Acute renal failure superimposed on stage 3 chronic kidney disease: Plan: -creatinine at baseline (4) Diabetes mellitus, type 2: Plan: -continue SSI (5) Multiple myeloma: Plan: -Follows with outpatient hematology/oncology (6) Warfarin anticoagulation: Plan: -see above (7) H/O mechanical aortic valve replacement: Plan: -see above (8) Liver lesion: Plan: -Follows with Dr. Fields outpatient (9) Pressure ulcer of buttock, unstageable: Plan: -Present on admission -wound care Plan I spent a total of 50 minutes in direct patient care, including [id number] time with the patient and/or family, reviewing medical records, ordering and reviewing diagnostic tests, and coordinating care with other healthcare providers. This time includes: history taking, physical examination, medical decision making, counseling, ECG interpretation, imaging interpretation, lab interpretation, orders, and education, excluding time spent in the performance of separately billed services. Admission and Anticipated Discharge Date Admission Date: October 02, 2024 Subjective Patient seen and examined at bedside. Patient pain improved with medications. Not sedated at this time. Scared about moving or sitting up. Discussed at length with son and family over phone, appreciative of the updates. Review of Systems Review of Systems: CONSTITUTIONAL: Patient denies fevers, chills, sweats and weight changes. EYES: Patient denies any visual symptoms. EARS, NOSE, AND THROAT: No difficulties with hearing. No symptoms of rhinitis or sore throat. CARDIOVASCULAR: Patient denies chest pains, palpitations, orthopnea and paroxysmal nocturnal dyspnea. RESPIRATORY: No dyspnea on exertion, no wheezing or cough. GI: No nausea, vomiting, diarrhea, constipation, abdominal pain, hematochezia or melena. : No urinary hesitancy or dribbling. No nocturia or urinary frequency. No abnormal urethral discharge. MUSCULOSKELETAL: back pain (improved) NEUROLOGIC: No chronic headaches, no seizures. Patient denies numbness, tingling or weakness. PSYCHIATRIC: Patient denies problems with mood disturbance. No problems with anxiety. ENDOCRINE: No excessive urination or excessive thirst. DERMATOLOGIC: Patient denies any rashes or skin changes. Physical Exam Physical Exam: Gen: A&O 3 NAD HEENT: NCAT, EOMI, not icteric. External ears normal. No rhinorrhea. Moist mucous membranes. Neck: Supple, full range of motion, no observable masses, No meningeal sign. Lungs: No Respiratory distress. CV: RRR, no edema. Abdomen: Soft, nondistended, No rebound tenderness. MSK: tenderness to palpation in left lateral transverse process L4 recess, pain shoots down left leg (improved) Skin: No rashes, petechiae, lesions. Normal color per patient. Neuro: Normal Gait, Grossly intact. Psych: Appropriate for situation. Results & Data Results & Data Vital Signs (Past 12 Hours) Vital Signs Temp Pulse Resp BP Pulse Ox O2 Del Method 10/07/24 07:50 36.4 C 66 16 170/73 H 98 Room Air Laboratory Results -personally reviewed, stable Hgb at this time, creatinine downtrending, mg of 1.4 replenished Medications Administered Acetaminophen (Acetaminophen 500 Mg Tab) 1,000 mg PO TID [facility] Stop: 11/02/24 08:59 Last Admin: 10/07/24 12:49 Dose: 1,000 mg Documented By: Admin: 10/07/24 07:36 Dose: 1,000 mg Documented By: Admin: 10/06/24 20:54 Dose: 1,000 mg Documented By: HKFrankie Admin: 10/06/24 13:01 Dose: 1,000 mg Documented By: Admin: 10/06/24 08:15 Dose: 1,000 mg Documented By: Admin: 10/05/24 21:15 Dose: 1,000 mg Documented By: Admin: 10/05/24 13:02 Dose: Not Given Documented By: Admin: 10/05/24 08:18 Dose: 1,000 mg Documented By: Admin: 10/04/24 22:11 Dose: 1,000 mg Documented By: Admin: 10/04/24 13:52 Dose: 1,000 mg Documented By: Admin: 10/04/24 08:15 Dose: 1,000 mg Documented By: Admin: 10/03/24 20:26 Dose: 1,000 mg Documented By: Admin: 10/03/24 14:36 Dose: 1,000 mg Documented By: Admin: 10/03/24 10:06 Dose: 1,000 mg Documented By: GDH Enoxaparin Sodium (Enoxaparin 80 Mg/0.8 Ml Syr) 80 mg SC Q12H [facility] Stop: 11/04/24 17:29 Last Admin: 10/07/24 05:44 Dose: 80 mg Documented By: Admin: 10/06/24 16:47 Dose: 80 mg Documented By: Admin: 10/06/24 05:12 Dose: 80 mg Documented By: Admin: 10/05/24 18:08 Dose: 80 mg Documented By: PK Insulin Aspart (Insulin Aspart Per Unit Charge) 0 units SC ACHS [facility] Stop: 11/04/24 06:14 Last Admin: 10/07/24 12:14 Dose: 2 units Documented By: RT Co-signed By: NATHALY Admin: 10/07/24 08:08 Dose: 1 units Documented By: RT Co-signed By: NATHALY Admin: 10/06/24 20:56 Dose: 7 units Documented By: TRISTAN Co-signed By: TAI Admin: 10/06/24 17:21 Dose: 6 units Documented By: RT Co-signed By: NELI Admin: 10/06/24 12:35 Dose: 1 units Documented By: RT Co-signed By: NELI Admin: 10/06/24 08:08 Dose: 1 units Documented By: RT Co-signed By: NATHALY Admin: 10/05/24 21:01 Dose: Not Given Documented By: Admin: 10/05/24 18:11 Dose: Not Given Documented By: PK Insulin Glargine (Lantus Per Unit Charge) 5 units SQ HS [facility] Stop: 11/02/24 20:59 Last Admin: 10/06/24 20:55 Dose: 5 units Documented By: TRISTAN Co-signed By: TAI Admin: 10/05/24 21:11 Dose: Not Given Documented By: Admin: 10/04/24 21:58 Dose: 5 units Documented By: KACI Co-signed By: DALE Admin: 10/03/24 20:27 Dose: 5 units Documented By: SUMAN Co-signed By: TYSON Lidocaine (Lidocaine 5% 1 Patch) 1 patch TD [facility] Stop: 11/02/24 02:49 Last Admin: 10/06/24 20:55 Dose: 1 patch Documented By: Admin: 10/05/24 21:12 Dose: 1 patch Documented By: Admin: 10/04/24 21:55 Dose: 1 patch Documented By: Admin: 10/03/24 20:28 Dose: 1 patch Documented By: Admin: 10/03/24 03:02 Dose: Not Given Documented By: ALW Miscellaneous (Remove Lidoderm Patch) 1 each N/A DAILY [facility] Stop: 11/02/24 11:59 Last Admin: 10/07/24 07:36 Dose: 1 each Documented By: Admin: 10/06/24 08:21 Dose: 1 each Documented By: Admin: 10/05/24 08:18 Dose: 1 each Documented By: Admin: 10/04/24 08:15 Dose: 1 each Documented By: Admin: 10/03/24 11:33 Dose: 1 each Documented By: GDH Oxycodone HCl (Oxycodone Hcl Ir 5 Mg Tab (Immediate Release)) 7.5 mg PO Q4H PRN PRN Reason: Severe Pain (Scale 7, 8, 9,10) Stop: 10/16/24 21:36 Last Admin: 10/07/24 12:49 Dose: 7.5 mg Documented By: Admin: 10/06/24 12:37 Dose: 7.5 mg Documented By: RT Pantoprazole Sodium (Pantoprazole 40 Mg Tab) 40 mg PO BID [facility] Stop: 11/04/24 20:59 Last Admin: 10/07/24 07:34 Dose: 40 mg Documented By: Admin: 10/06/24 20:55 Dose: 40 mg Documented By: Admin: 10/06/24 08:04 Dose: 40 mg Documented By: Admin: 10/05/24 21:11 Dose: 40 mg Documented By: ASM Pregabalin (Pregabalin 25 Mg Cap) 25 mg PO BID [facility] Stop: 11/05/24 20:59 Last Admin: 10/07/24 07:36 Dose: 25 mg Documented By: Admin: 10/06/24 20:54 Dose: 25 mg Documented By: TRISTAN Simvastatin (Simvastatin 20 Mg Tab) 20 mg PO PM [facility] Stop: 11/02/24 20:59 Last Admin: 10/06/24 20:58 Dose: 20 mg Documented By: Admin: 10/05/24 21:12 Dose: 20 mg Documented By: Admin: 10/04/24 19:54 Dose: 20 mg Documented By: Admin: 10/03/24 20:26 Dose: 20 mg Documented By: SUMAN Warfarin Sodium (Warfarin Sod 5 Mg Tab) 5 mg PO DAILY@1600 [facility] Stop: 11/04/24 17:24 Last Admin: 10/06/24 16:48 Dose: 5 mg Documented By: Admin: 10/05/24 18:08 Dose: 5 mg Documented By: PK
[2024-10-07] MEDS: MAGNESIUM SULFATE / D5W 1 GM/100 ML BAG IV SCH (15:20)
[2024-10-07] MEDS: WARFARIN SOD 7.5 MG TAB PO SCH (15:47)
[2024-10-07] MEDS: PREGABALIN 25 MG CAP PO SCH (20:25)
[2024-10-07] MEDS: MELATONIN 3 MG TAB PO PRN (20:25)
[2024-10-08 06:17] LABS: Hematocrit (blood only) 28.0 % (37.0-47.0); Hemoglobin 8.8 g/dl (12.0-16.0); Mean Corpuscular Hemoglobin 29.2 pg (25.0-34.0); Mean Corpuscular Volume 93.0 fL (80.0-100.0); Platelet Count 82 K/uL (130-400); RDW Standard Deviation 54.3 fL (36.4-46.3); Red Blood Count 3.01 M/uL (4.20-5.40); White Blood Count 6.64 K/ul (4.8-10.8)
[2024-10-08 06:33] LABS: Anion Gap 7.0 (3-11); Blood Urea Nitrogen 29.0 mg/dl (6-23); Calcium 8.2 mg/dl (8.6-10.3); Carbon Dioxide 23.0 mmol/L (21-32); Chloride 109.0 mmol/L (98-107); Creatinine Clr Calc Pharmacy 32.2 ml/min; Glucose 91.0 mg/dl (70-99(Fasting)); Magnesium 1.9 mg/dl (1.7-2.4); Potassium 4.1 mmol/L (3.5-5.1); Sodium 139.0 mmol/L (136-145)
[2024-10-08 06:47] LABS: INR 1.2 (0.9-1.1); Prothrombin Time 13.1 Seconds (9.0-12.0)
[2024-10-08 07:16] VITALS: RESP 18; TEMP 97.3; O2SAT 99
[2024-10-08 09:57] VITALS: BP 153/71; PULSE 73
--- NOTE | 2024-10-08 12:20 | Discharge Summary ---
Discharge Summary Date of Service October 08, 2024 Principal Dx & Hospital Course #1 = Principal Diagnosis (1) Acute blood loss anemia: -Hgb stable at this time -EGD revealed long segment Barretts esophagus -needs anticoagulation due to aortic valve replacement Plan: -continue warfarin/lovenox bridging -trend CBC daily -continue protonix 40 bid -GI consulted, appreciate recs -increase warfarin to 7.5 mg tonight (2) Lumbar burst fracture: -causing significant limitation in mobility -tenderness to palpation, shoots down left leg -patient not great surgical candidate would not help radicular component of pain Plan: -ortho consult, appreciate recs -start decadron 4mg IV daily for inflammatory component of pain -avoid NSAIDs given bleed -continue lidocaine patch -increase pregablin to 25mg tid for neuropathic component of pain -continuie oxycodone 7.5mg q4hr for severe pain and dilaudid 0.5 mg q4hr prn for breakthrough pain -discussed case with pain management, not candidate for steroid injection at this time, RFA only performed outpatient -likely discharge to SNF tomorrow (3) Acute renal failure superimposed on stage 3 chronic kidney disease: -creatinine at baseline (4) Diabetes mellitus, type 2: -continue SSI (5) Multiple myeloma: -Follows with outpatient hematology/oncology (6) Warfarin anticoagulation: -see above (7) H/O mechanical aortic valve replacement: -see above (8) Liver lesion: -Follows with Dr. Fields outpatient (9) Pressure ulcer of buttock, unstageable: -Present on admission -wound care Notes For Next Care Provider 84 yo female with pmhx of nonobstructive CAD, status post mechanical AVR on Coumadin, valvular heart disease (mild to moderate MR/mild MS/TR/KS, TTE 2024), hypertension, hyperlipidemia, CRI (baseline creatinine 1.5-1.8), smoldering multiple myeloma, chronic anemia (baseline hemoglobin of 10), chronic thrombocytopenia, DM2 on oral medications, chronic back pain secondary to lumbar compression fracture, liver mass who presents for pain and weakness. On medicine, ortho spine consulted, recommended against surgical intervention due to high risk procedure. GI consulted for melanotic stools, found to have Barretts esophagus recommended PPI therapy and follow up outpatient. Pain management was curbsided, recommended against steroid injection until 6 months out from injury and they do not do RFA inpatient. Pain medications titrated to effect. On 10/09/2023 patient medically stable for discharge to SNF. To do: [ ] f/u with pain management outpatient Medication Changes From Visit -see below Admission HPI Per Admitting Provider History obtained from patient and records. Medical history significant for nonobstructive CAD, status post mechanical AVR on Coumadin, valvular heart disease (mild to moderate MR/mild MS/TR/KS, TTE 2024), hypertension, hyperlipidemia, CRI (baseline creatinine 1.5-1.8), smoldering multiple myeloma, chronic anemia (baseline hemoglobin of 10), chronic thrombocytopenia, DM2 on oral medications, chronic back pain secondary to lumbar compression fracture, liver mass as per records history toxoplasma chorioretinitis as per records. Patient Coumadin for mechanical AVR stopped 2 weeks ago in preparation for elective lumbar kyphoplasty for lumbar compression fracture at [facility] originally scheduled last 09/27/2024. Patient started on weight-based Lovenox subcutaneous injections at home. 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 Patient noted to have melanotic stools last week without abdominal pain. Noted to be very anemic upon admission at [facility]. Blood transfusion given during confinement. No endoscopy done due to patient being high risk for procedure as per patient account. Patient discharged to SNF [facility] [place] few days ago for rehab in preparation for rescheduled back surgery at [facility] for 10/05/2024. Weight-based Lovenox subcutaneous injections restarted on discharge. Patient not feeling well upon discharge from hospital. Weak with occasional SOB. No chest pain, no SOB symptoms. Tolerable achy abdominal discomfort. Back pain somewhat worsening with radiation to left lower leg. No fever, no chills. Patient noted to have melanotic stools at rehab facility today. Some nausea without emesis. SBP 90s upon EMS arrival. IV PPI and 1 unit PRBC administered at the ER. Medical History as above Surgical History : Cholecystectomy, tonsillectomy, cataract surgery, mechanical AVR Family History : Heart disease, DM Personal/Social history : Non-smoker, occasional EtOH intake, retired [employer] employee Discharge Exam Gen: A&O 3 NAD HEENT: NCAT, EOMI, not icteric. External ears normal. No rhinorrhea. Moist mucous membranes. Neck: Supple, full range of motion, no observable masses, No meningeal sign. Lungs: No Respiratory distress. CV: RRR, no edema. Abdomen: Soft, nondistended, No rebound tenderness. MSK: tenderness to palpation in left lateral transverse process L4 recess, pain shoots down left leg (improved) Skin: No rashes, petechiae, lesions. Normal color per patient. Neuro: Normal Gait, Grossly intact. Psych: Appropriate for situation. Updated Medication List Medication Instructions Recorded Confirmed Type acetaminophen 500 mg capsule 1,000 mg PO TID 09/13/24 10/02/24 History amlodipine 5 mg tablet 5 mg PO BID 09/13/24 10/02/24 History furosemide 20 mg tablet 20 mg PO QAM 09/13/24 10/02/24 History lisinopril 20 mg tablet 20 mg PO BID 09/13/24 10/02/24 History metformin 500 mg tablet,extended 500 mg PO QAM 09/13/24 10/02/24 History release 24 hr simvastatin 20 mg tablet 20 mg PO PM 09/13/24 10/02/24 History warfarin 5 mg tablet (Jantoven) 5 mg PO HS 09/13/24 10/02/24 History lidocaine 4 % topical patch 1 patch topical BID PRN pain #30 ea 10/07/24 Rx oxycodone 5 mg tablet 7.5 mg (1.5 x 5 mg) PO Q4H PRN 10/07/24 Rx pain #45 tabs pantoprazole 40 mg tablet,delayed 40 mg PO BID #60 tabs 10/07/24 Rx release pregabalin 25 mg capsule 25 mg PO TID #60 caps 10/07/24 Rx enoxaparin 80 mg/0.8 mL 80 mg (0.8 mL) SC Q12H 7 days 10/08/24 Rx subcutaneous syringe (Lovenox) #11.2 mL Hospital Stay Data Consultations 10/02/24 20:43 ED Decision to Admit Stat 10/03/24 02:22 Consult Orthopedic Spine Surgery Routine 10/03/24 04:11 Consult Gastroenterology Routine Procedures Performed Operation Date: 10/05/24 17:10 Actual Procedures p EGD Biopsy Cytology - Brett Alvarado MD s Colonoscopy - Brett Alvarado MD Diagnostic Imagining Performed 10/02/24 21:33 CT Abd and Pelvis [CT abd pelvis wo con] Stat 10/03/24 11:11 CT lumbar spine wo con Routine Pending Results Patient Have Any Pending Studies at Discharge: No Discharge Instructions Given to Patient (Per Discharging Provider) 1. Please follow up with cardiology (valve replacement), GI (f/u on bleed and Barretts esophagus), PCP (pain and overall health), and pain management (for chronic pain). 2. Please take medications as prescribed. 3. Stay hydrated! 4. Finish bridging with lovenox for warfarin, goal INR 2.5. Total Time Total Time Spent Total Time Spent (In Minutes): I spent a total of 35 minutes in direct patient care, including [id number] time with the patient and/or family, reviewing medical records, ordering and reviewing diagnostic tests, and coordinating care with other healthcare providers. This time includes: history taking, physical examination, medical decision making, counseling, ECG interpretation, imaging interpretation, lab interpretation, orders, and education, excluding time spent in the performance of separately billed services.
== END 2024-10-08 10:47 | DRG 381 ==
LOC: ED 19:25 → SUATTDRO 21:00 → 2S 21:00 → 3N 10-05 22:01

== ENCOUNTER 2024-12-05 14:31 | Inpatient (IN) ==
[2024-12-05 15:19] LABS: Hematocrit (blood only) 23.6 % (37.0-47.0); Hemoglobin 7.4 g/dl (12.0-16.0); Immature Granulocytes # (auto) 0.29 K/uL (0.01-0.20); Immature Granulocytes % (auto) 3.0 %; Mean Corpuscular Hemoglobin 28.5 pg (25.0-34.0); Mean Corpuscular Volume 90.8 fL (80.0-100.0); Platelet Count 85 K/uL (130-400); RDW Standard Deviation 55.1 fL (36.4-46.3); Red Blood Count 2.60 M/uL (4.20-5.40); White Blood Count 9.51 K/ul (4.8-10.8)
[2024-12-05] MEDS: OPTIRAY 320 100ml IV ONE (15:22)
[2024-12-05 15:27] LABS: Alanine Aminotransferase 13.0 U/L (7-52); Alkaline Phosphatase 411.0 U/L (34-104); Anion Gap 7.0 (3-11); Bilirubin,Total 0.5 mg/dl (0.2-1.0); Blood Urea Nitrogen 48.0 mg/dl (6-23); Calcium 8.9 mg/dl (8.6-10.3); Carbon Dioxide 23.0 mmol/L (21-32); Chloride 112.0 mmol/L (98-107); Creatinine Clr Calc Pharmacy 38.6 ml/min; Glucose 161.0 mg/dl (70-99(Fasting)); Lipase 31.0 U/L (11-82); Potassium 4.0 mmol/L (3.5-5.1); Sodium 142.0 mmol/L (136-145); Total Protein 6.5 gm/dl (6.0-8.3)
[2024-12-05 15:37] LABS: RBC Morphology Unremarkable
[2024-12-05 15:52] LABS: INR 3.6 (0.9-1.1); Partial Thromboplastin Time 74 Seconds (21-31); Prothrombin Time 35.1 Seconds (9.0-12.0)
--- NOTE | 2024-12-05 16:37 | CT Scan Report ---
CT LUMBAR SPINE WITH CONTRAST: HISTORY: PAIN TECHNIQUE: Enhanced CT examination of the lumbar spine is performed. Coronal and sagittal reformats were created. IV CONTRAST: 100 mL of OMNIPAQUE 300 COMPARISON: Lumbar spine CT October 03, 2024 FINDINGS: LUMBAR SPINE: Redemonstration of recent burst type fracture of L3 vertebral body with severe retropulsion.Recent traumatic fractures of the L2 spinous process and L3 right transverse process Interval decompressive laminectomy at this level and kyphoplasty changes. There is a new large intermediate density fluid within the laminectomy bed extending into the paraspinal muscles, the spinal canal and posteriorly to the skin. IMPRESSION: Redemonstration of recent burst type fracture of L3 vertebral body with severe retropulsion. Interval decompressive laminectomy at this level and kyphoplasty changes. New large intermediate density fluid in the surgical bed extending to the spinal canal, paraspinal muscles and posteriorly to the skin. These may represent hematomas and superinfection is possible. Please correlate with fluid sampling. The fluid extends into the spinal canal as an epidural fluid. Lumbar spine MRI evaluation may be obtained if indicated Recent traumatic fractures of the L2 spinous process and L3 right transverse process. These were not definitively seen in prior lumbar spine CT and may be intervally new. Electronically signed by Rodrigue Call 12-05-2024 4:37 PM
--- NOTE | 2024-12-05 16:39 | CT Scan Report ---
CT ABDOMEN and PELVIS with INTRAVENOUS CONTRAST HISTORY: Abdominal pain TECHNIQUE: CT abdomen and pelvis with contrast. IV CONTRAST: 100 mL of OMNIPAQUE 300 ENTERIC CONTRAST: Not Given COMPARISON: CT abdomen pelvis October 02, 2024. FINDINGS: LOWER CHEST: Small pleural fluid, increased from previous. Cardiomegaly with dense valvular calcifications. LIVER: The large hepatic mass appears to have grown in size in the interim. There are small new nodular extensions/lesions along the margin of the dominant mass (for example as seen in series 300, image 22). GALLBLADDER/BILIARY: Surgically absent gallbladder. No abnormal biliary dilatation. There is a small quantity of pneumobilia. SPLEEN: Mild splenomegaly, unchanged. PANCREAS: Unremarkable. ADRENALS: Unremarkable. KIDNEYS: Atrophic kidneys with cortical cysts. No stones or hydronephrosis identified. PERITONEUM/RETROPERITONEUM. Small presacral fluid. No lymphadenopathy by size criteria. No aortic aneurysm. GASTROINTESTINAL: No obstruction. Colonic diverticulosis without evidence of diverticulitis. Normal appendix. REPRODUCTIVE: No suspicious pelvic masses identified URINARY BLADDER: Unremarkable BONES: Please refer to separately dictated lumbar spine CT report. IMPRESSION: Interval enlargement of the large heterogeneous hepatic masslike density with new small nodular lesions along the margin of the dominant mass. Given growth, malignancy would be suspected. Complex fluid collection not excluded. Open please correlate with clinical workup up to this point and if indicated MRI evaluation may be obtained when clinically appropriate. New small pneumobilia. Small pleural fluids. Electronically signed by Rodrigue Call 12-05-2024 4:37 PM
[2024-12-05] MEDS ORDERED: SODIUM CHLORIDE 0.9% 100 ML IV PRN ×2 (18:13→23:55)
[2024-12-05] MEDS: PHYTONADIONE 5 MG TAB PO STA (18:30)
--- NOTE | 2024-12-05 18:37 | Emergency Department Note ---
History of Present Illness General Chief complaint: Abnormal Labs/Diagnostic Testing Stated complaint: ABNORMAL LABS, BACK PAIN Time Seen by Provider: 12/05/24 14:44 History of Present Illness Provider complaint: Back pain low hemoglobin Maximum Pain Intensity: 2 84-year-old female presents emergency department for back pain and low hemoglobin. Patient reports she recently had surgery with Dr. Valdez. She is ports the pain is in her lower back with surgeries done on the left side rating into her left hip and left lower extremity. She reports no melena or hematochezia. No urinary incontinence. No fecal incontinence. EMS reports that the [facility] that the patient is staying at reported that her hemoglobin was low. Patient is on Coumadin. Home Medications Medication Instructions Recorded Confirmed Type acetaminophen 500 mg capsule 1,000 mg PO Q8H 09/13/24 12/05/24 History amlodipine 5 mg tablet 5 mg PO BID 09/13/24 12/05/24 History pantoprazole 40 mg tablet,delayed 40 mg PO BID #60 tabs 10/07/24 12/05/24 Rx release bisacodyl 10 mg rectal suppository 10 mg DE DAILY PRN Constipation 10/28/24 12/05/24 History (Dulcolax (bisacodyl)) buspirone 5 mg tablet 5 mg PO TID 10/28/24 12/05/24 History ondansetron HCl 4 mg tablet 4 mg PO Q6H PRN n/v 11/19/24 12/05/24 History sodium phosphates 19 gram-7 118 ml DE DAILY PRN constipation 11/19/24 12/05/24 History gram/118 mL enema (Fleet Enema) metoprolol succinate 25 mg 12.5 mg (1/2 x 25 mg) PO DAILY #30 11/27/24 12/05/24 Rx tablet,extended release 24 hr tabs (Toprol XL) Saccharomyces boulardii 250 mg 250 mg PO BID 12/05/24 12/05/24 History capsule (Florastor) atorvastatin 10 mg tablet 10 mg PO DAILY 12/05/24 12/05/24 History docusate sodium 100 mg capsule 100 mg PO BID PRN Constipation 12/05/24 12/05/24 History insulin aspart U-100 100 unit/mL 1 sliding scale dose subcut ACHS 12/05/24 12/05/24 History subcutaneous solution (Novolog U-100 Insulin aspart) loperamide 2 mg tablet (Imodium 2 mg PO Q6H PRN Diarrhea 12/05/24 12/05/24 History A-D) magnesium oxide 400 mg PO BID 12/05/24 12/05/24 History melatonin 3 mg tablet 6 mg PO HS PRN Insomnia 12/05/24 12/05/24 History metformin 500 mg tablet,extended 500 mg PO DAILY 12/05/24 12/05/24 History release 24 hr naloxone 4 mg/actuation nasal spray 4 mg intranasal DIRECTED PRN 12/05/24 12/05/24 History OPOID OVERDOSE polyethylene glycol 3350 17 17 g PO QDL PRN Constipation 12/05/24 12/05/24 History gram/dose oral powder (Miralax) pregabalin 25 mg capsule 50 mg PO BID 12/05/24 12/05/24 History sennosides 8.6 mg-docusate sodium 1 tab-cap PO QDL PRN Constipation 12/05/24 12/05/24 History 50 mg tablet (Senokot-S) sodium hypochlorite 0.125 % 1 applic topical DAILY PRN Itching 12/05/24 12/05/24 History solution (Dakin's Solution) warfarin 6 mg tablet 6 mg PO QPM 12/05/24 12/05/24 History Allergies Allergy/AdvReac Type Severity Reaction Status Date / Time No Known Allergies Allergy Verified 12/05/24 15:28 Past Med/Surg History Problem List (Updated 12/05/24 @ 18:37 by Moustapha Thayer MD) Hematoma (Acute) Acute kidney injury Severe sepsis with acute organ dysfunction MRSA nasal colonization Atrial flutter with rapid ventricular response Spinal stenosis of lumbar region Chronic disease anemia Lumbar radiculopathy, acute L3 vertebral fracture Esophageal ulceration 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 Pressure ulcer of buttock, unstageable H/O mechanical aortic valve replacement Warfarin anticoagulation Acute renal failure superimposed on stage 3 chronic kidney disease Acute blood loss anemia Lumbar burst fracture Hypotension Symptomatic anemia (Acute) Anemia requiring transfusions (Acute) Acute upper GI bleed (Acute) Medical History correction resident resident of [facility] Anemia requiring transfusions Acute renal failure superimposed on stage 3 chronic kidney disease 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 <50% LICA stenosis. Aortic valve disease s/p AVR (2005) Echo 07/[address] Eric/[place] Reason for Jantoven/warfarin Osteoarthritis History of gallbladder disease No recent issues Liver lesion Follows with Dr. Fields/[facility] Diabetes mellitus, type 2 Multiple myeloma "Smoldering" Follows with Dr. Fields/[facility] Hx infusions, no current tx Hypertension Hyperlipidemia Surgical History History of cardiac cath 2005- no stents 03/2022- no stents, mild non-obstructive CAD History of dilatation and curettage History of colonoscopy History of cataract surgery R/L History of tonsillectomy Aortic valve replaced 10/2005, mechanical valve Family History Mother Diabetes Son Diabetes Social History Smoking Status: Never smoker Second Hand Exposure: No; Do You Dip or Chew Tobacco: No; Hx Alcohol Use: No Hx Substance Use: No Preferred Language: Tanzanian Communication Ability: Effective Binder Fixer Required: No Beliefs That Will Affect Care: None Current Living Situation: Other Current Living Situation Comment: resident of [facility] Feels Safe at Home: Yes Assistive Devices: Glasses, Walker and Wheelchair Physical Exam Vital Signs Vital Signs - 24 hr 12/05/24 14:41 12/05/24 15:01 12/05/24 15:40 Temperature 37 C Temperature Source Oral Pulse Rate 75 73 Pulse Rate [Apical] Respiratory Rate 14 Respiratory Effort / Characteristics Non-Labored Spontaneous Respiratory Depth Normal Respiratory Pattern Regular Blood Pressure 149/79 H Blood Pressure [Left Arm] Blood Pressure Mean 102 Blood Pressure Mean [Left Arm] Pulse Oximetry 98 Oxygen Delivery Method Room Air Room Air Sepsis Recent Fever Within 48 Hours No Sepsis New/Unexplained Change in Mental Status No Sepsis Action Taken by Nursing No Action Required 12/05/24 16:00 Temperature Temperature Source Pulse Rate Pulse Rate [Apical] 78 Respiratory Rate 18 Respiratory Effort / Characteristics Respiratory Depth Respiratory Pattern Blood Pressure Blood Pressure [Left Arm] 155/65 H Blood Pressure Mean Blood Pressure Mean [Left Arm] 95 Pulse Oximetry 96 Oxygen Delivery Method Sepsis Recent Fever Within 48 Hours Sepsis New/Unexplained Change in Mental Status Sepsis Action Taken by Nursing Physical Exam HENT: Exam performed. -Head: Normocephalic and atraumatic. CV: Normal rate, regular rhythm, normal heart sounds and intact distal pulses. There is no peripheral edema. Palpable radial pulses bue. PULM/CHEST: Effort normal and breath sounds normal. No respiratory distress. No stridor. She has no wheezes. She has no rales. ABD: The abdomen is soft. She has no distension. No mass is present. There is no tenderness. There is no rebound, no guarding. Ecchymosis over the patient's anterior abdominal wall. Rectal: Performed with female nursing eight section blower Cheryl. Good rectal tone. No bright red blood per rectum. Hemoccult negative. MUSC/SKEL: Surgical incision on the back is clean and dry. No surrounding erythema. NEURO: Motor and sensation grossly intact. Course Course 1444: The patient was evaluated in room B7. A complete history and physical exam was performed Cardiac monitoring: An order was placed for continuous cardiac monitoring. The monitor shows a rate of 80 with sinus rhythm interpreted by me Patient reports she has metal in her body and cannot receive MRIs. EMR reviewed and patient has never had MRIs at this facility. 1719: Vital signs stable. Labs show hemoglobin of 7.4. INR 3.6. Otherwise labs are unremarkable. CT of the abdomen pelvis shows a mass on her liver. Patient states this is known and she follows with oncology Dr. Pleitez at [facility]. His plan is to address the liver lesion after she has recovered from the back surgery according to the patient. CT of the lumbar spine showed a redemonstration of burst type lumbar fracture of L3. There is a new large indeterminate density fluid in the surgical bed extending to the spinal canal paraspinal muscles and posteriorly to the skin. Radiologist states this represents hematomas and a possible superinfection. Suprainfection thought to be low likelihood as patient is not reporting fevers and normal white blood cell count. Discussed the case with Priti Valdez's PA. She states that the patient can be admitted to the medicine team team and Dr. Valdez's team will be on consult. She states no antibiotics at this time. She states they will determine if they need to do any surgical intervention on the patient tomorrow and she thinks that the patient most likely has a hematoma and not an abscess. She states she defers transfusion at this time to the medicine team. She states no vitamin K is necessary at this time and if they need to do any sort of surgical procedure they will give vitamin K tomorrow. Patient will be admitted to the medicine team. Administered Medications Discontinued Medications Ioversol (Optiray 320 100ml) 93 ml IV ONCE ONE Stop: 12/05/24 15:23 Last Admin: 12/05/24 15:22 Dose: 93 ml Documented By: ANNAMARIE Medical Decision Making Laboratory Data Attestation: I reviewed the patient's lab results. 12/05/24 14:45 12/05/24 14:45 Lab Results 12/05/24 12/05/24 12/05/24 Range/Units 14:45 14:48 15:03 WBC 9.51 (4.8-10.8) K/ul RBC 2.60 L (4.20-5.40) M/uL Hgb 7.4 L (12.0-16.0) g/dl POC Hgb 6.1 L* (12.0-16.0) g/dl Hct 23.6 L (37.0-47.0) % POC Hct 18 L* (37-47) % MCV 90.8 (80.0-100.0) fL MCH 28.5 (25.0-34.0) pg MCHC 31.4 L (32.0-36.0) g/dL RDW Std Deviation 55.1 H (36.4-46.3) fL RDW Coeff of Nora 16.8 H (11.5-14.5) % Plt Count 85 L (130-400) K/uL MPV 12.6 H (9.4-12.4) fL Immature Gran % (Auto) 3.0 % Neut % (Auto) 68.0 % Lymph % (Auto) 13.8 % Murray % (Auto) 14.9 % Eos % (Auto) 0.2 % Baso % (Auto) 0.1 % Neut # (Auto) 6.46 (1.40-6.50) K/uL Lymph # (Auto) 1.31 (1.20-3.40) K/uL Murray # (Auto) 1.42 H (0.11-0.59) K/uL Eos # (Auto) 0.02 (0.00-0.50) K/uL Baso # (Auto) 0.01 (0.00-0.20) K/uL Immature Gran # (Auto) 0.29 H (0.01-0.20) K/uL RBC Morphology Unremarkable PT 35.1 H (9.0-12.0) Seconds INR 3.6 H (0.9-1.1) APTT 74 H (21-31) Seconds PTT Ratio 2.8 POC Sodium 143 (135-144) mmol/L Sodium 142 (136-145) mmol/L POC Potassium 4.0 (3.3-5.0) mmol/L Potassium 4.0 (3.5-5.1) mmol/L POC Chloride 110 (101-112) mmol/L Chloride 112 H (98-107) mmol/L Carbon Dioxide 23 (21-32) mmol/L POC Total CO2 20 L (24-31) mmol/L Anion Gap 7 (3-11) POC Anion Gap 18.0 (16-25) mmol/L POC BUN 41 H (7-18) mg/dl BUN 48 H (6-23) mg/dl Creatinine 1.21 H (0.6-1.2) mg/dl POC Creatinine 1.3 (0.6-1.3) mg/dl Est Cr Clr Drug Dosing 38.6 ml/min eGFR 44.75 BUN/Creatinine Ratio 39.7 H (10-20) Glucose 161 H (70-99(Fasting)) mg/dl POC Glucose (other) 159 H (70-99) mg/dl Calcium 8.9 (8.6-10.3) mg/dl POC Ioniz Calcium Lianna 1.17 (1.12-1.32) mmol/l Total Bilirubin 0.5 (0.2-1.0) mg/dl Direct Bilirubin 0.1 (0-0.2) mg/dl AST 19 (13-39) U/L ALT 13 (7-52) U/L Alkaline Phosphatase 411 H (34-104) U/L Total Protein 6.5 (6.0-8.3) gm/dl Albumin 2.9 L (3.4-5.0) gm/dl Lipase 31 (11-82) U/L Blood Type O Negative Antibody Screen NEGATIVE Imaging Data Radiologist's Impression: Lumbar Spine CT 12/05/24 15:00 CT LUMBAR SPINE WITH CONTRAST: HISTORY: PAIN TECHNIQUE: Enhanced CT examination of the lumbar spine is performed. Coronal and sagittal reformats were created. IV CONTRAST: 100 mL of OMNIPAQUE 300 COMPARISON: Lumbar spine CT October 03, 2024 FINDINGS: LUMBAR SPINE: Redemonstration of recent burst type fracture of L3 vertebral body with severe retropulsion.Recent traumatic fractures of the L2 spinous process and L3 right transverse process Interval decompressive laminectomy at this level and kyphoplasty changes. There is a new large intermediate density fluid within the laminectomy bed extending into the paraspinal muscles, the spinal canal and posteriorly to the skin. IMPRESSION: Redemonstration of recent burst type fracture of L3 vertebral body with severe retropulsion. Interval decompressive laminectomy at this level and kyphoplasty changes. New large intermediate density fluid in the surgical bed extending to the spinal canal, paraspinal muscles and posteriorly to the skin. These may represent hematomas and superinfection is possible. Please correlate with fluid sampling. The fluid extends into the spinal canal as an epidural fluid. Lumbar spine MRI evaluation may be obtained if indicated Recent traumatic fractures of the L2 spinous process and L3 right transverse process. These were not definitively seen in prior lumbar spine CT and may be intervally new. Electronically signed by Rodrigue Call 12-05-2024 4:37 PM Abdomen/Pelvis CT 12/05/24 15:01 CT ABDOMEN and PELVIS with INTRAVENOUS CONTRAST HISTORY: Abdominal pain TECHNIQUE: CT abdomen and pelvis with contrast. IV CONTRAST: 100 mL of OMNIPAQUE 300 ENTERIC CONTRAST: Not Given COMPARISON: CT abdomen pelvis October 02, 2024. FINDINGS: LOWER CHEST: Small pleural fluid, increased from previous. Cardiomegaly with dense valvular calcifications. LIVER: The large hepatic mass appears to have grown in size in the interim. There are small new nodular extensions/lesions along the margin of the dominant mass (for example as seen in series 300, image 22). GALLBLADDER/BILIARY: Surgically absent gallbladder. No abnormal biliary dilatation. There is a small quantity of pneumobilia. SPLEEN: Mild splenomegaly, unchanged. PANCREAS: Unremarkable. ADRENALS: Unremarkable. KIDNEYS: Atrophic kidneys with cortical cysts. No stones or hydronephrosis identified. PERITONEUM/RETROPERITONEUM. Small presacral fluid. No lymphadenopathy by size criteria. No aortic aneurysm. GASTROINTESTINAL: No obstruction. Colonic diverticulosis without evidence of diverticulitis. Normal appendix. REPRODUCTIVE: No suspicious pelvic masses identified URINARY BLADDER: Unremarkable BONES: Please refer to separately dictated lumbar spine CT report. IMPRESSION: Interval enlargement of the large heterogeneous hepatic masslike density with new small nodular lesions along the margin of the dominant mass. Given growth, malignancy would be suspected. Complex fluid collection not excluded. Open please correlate with clinical workup up to this point and if indicated MRI evaluation may be obtained when clinically appropriate. New small pneumobilia. Small pleural fluids. Electronically signed by Rodrigue Call 12-05-2024 4:37 PM ECG Data Attestation: I personally reviewed and interpreted this ECG as follows: Rate (beats per minute): 75 Rhythm: + normal sinus ECG Intervals/blocks: + Normal QRS, + Normal DE and + Normal QT-c ECG ST segments: + Normal ST segments MDM Narrative 1444: The patient was evaluated in room B7. A complete history and physical exam was performed Cardiac monitoring: An order was placed for continuous cardiac monitoring. The monitor shows a rate of 80 with sinus rhythm interpreted by me Patient reports she has metal in her body and cannot receive MRIs. EMR reviewed and patient has never had MRIs at this facility. 1719: Vital signs stable. Labs show hemoglobin of 7.4. INR 3.6. Otherwise labs are unremarkable. CT of the abdomen pelvis shows a mass on her liver. Patient states this is known and she follows with oncology Dr. Pleitez at [facility]. His plan is to address the liver lesion after she has recovered from the back surgery according to the patient. CT of the lumbar spine showed a redemonstration of burst type lumbar fracture of L3. There is a new large indeterminate density fluid in the surgical bed extending to the spinal canal paraspinal muscles and posteriorly to the skin. Radiologist states this represents hematomas and a possible superinfection. Suprainfection thought to be low likelihood as patient is not reporting fevers and normal white blood cell count. Discussed the case with Priti Valdez's PA. She states that the patient can be admitted to the medicine team team and Dr. Valdez's team will be on consult. She states no antibiotics at this time. She states they will determine if they need to do any surgical intervention on the patient tomorrow and she thinks that the patient most likely has a hematoma and not an abscess. She states she defers transfusion at this time to the medicine team. She states no vitamin K is necessary at this time and if they need to do any sort of surgical procedure they will give vitamin K tomorrow. Patient will be admitted to the medicine team. Impression & Plan Hematoma Discharge Plan Visit Data Chief Complaint: Abnormal Labs/Diagnostic Testing Stated Complaint: ABNORMAL LABS, BACK PAIN ED Provider: Moustapha Thayer Discharge Problem: Hematoma Patient Disposition: Admitted As Inpatient Condition: Fair Forms Stand Alone Forms: [facility] Prescriptions Prescriptions: No Action buspirone 5 mg tablet 5 mg PO TID bisacodyl [Dulcolax (bisacodyl)] 10 mg suppository 10 mg DE DAILY PRN (Reason: Constipation) pantoprazole 40 mg Tablet,Delayed Release (Dr/Ec) 40 mg PO BID Qty: 60 0RF Rx Instructions: PRIOR TO MEALS atorvastatin 10 mg Tablet 10 mg PO DAILY sennosides-docusate sodium [Senokot-S] 8.6-50 mg Tablet 1 tab-cap PO QDL PRN (Reason: Constipation) loperamide [Imodium A-D] 2 mg Tablet 2 mg PO Q6H PRN (Reason: Diarrhea) melatonin 3 mg Tablet 6 mg PO HS PRN (Reason: Insomnia) insulin aspart U-100 [Novolog U-100 Insulin aspart] 100 unit/mL Solution 1 sliding scale dose SUBCUT ACHS Rx Instructions: BSG ,70=HYPOGLYCEMIA PROTOCOL, 70-130=0 UNITS, 131-180= 2 UNITS, 181-240= 4 UNITS, 241-300= 6 UNITS, 301-350= 8 UNITS, 351-400= 10 UNITS, >400= 12 UNITS. docusate sodium 100 mg Capsule 100 mg PO BID PRN (Reason: Constipation) polyethylene glycol 3350 [Miralax] 17 gram/dose Powder 17 g PO QDL PRN (Reason: Constipation) Saccharomyces boulardii [Florastor] 250 mg Capsule 250 mg PO BID pregabalin 25 mg Capsule 50 mg PO BID Dakin's Solution 0.125 % Solution 1 applic TOPICAL DAILY PRN (Reason: Itching) Rx Instructions: APPLY TO BACK naloxone 4 mg/actuation [place],Non-Aerosol 4 mg INTRANASAL DIRECTED PRN (Reason: OPOID OVERDOSE) magnesium oxide 400 mg magnesium Tablet 400 mg PO BID warfarin 6 mg tablet 6 mg PO QPM Rx Instructions: SKIP DOSE 12/05/24, PER MED LIST. metformin 500 mg Tablet Extended Release 24 Hr 500 mg PO DAILY amlodipine 5 mg Tablet 5 mg PO BID acetaminophen 500 mg Capsule 1,000 mg PO Q8H ondansetron HCl 4 mg Tablet 4 mg PO Q6H PRN (Reason: n/v) Fleet Enema 19-7 gram/118 mL Enema 118 ml DE DAILY PRN (Reason: constipation ) metoprolol succinate [Toprol XL] 25 mg tablet extended release 24 hr 12.5 mg PO DAILY Qty: 30 0RF Referrals Referrals: Elis Swain MD [Primary Care Provider] -
--- NOTE | 2024-12-05 18:40 | History & Physical Report ---
Date of Service December 05, 2024 Assessment & Plan (1) Hematoma: Plan: Patient is a 84 year old F with a past medical history of DM Type II, HLD, spinal stenosis of lumbar region, lumbar radiculopathy s/p laminectomy an L3 burst fracture repair (11/22), Diaz's esophagitis, anemia of chronic dx, H/O mechanical valve aortic valve replacement on warfarin, CKD Stage III, CAD (50- 69% DIANA stenosis. <50% LICA stenosis), Multiple myeloma with liver lesion (follows Dr. Fields) presenting with low back pain with radiation and numbness to LLE. Patient was admitted from 11/22-11/27 and discharged to [facility] for additional management and physical rehab. Ongoing lumbar pain since back surgery that worsened 2 days ago; pain travelling down LLE. Reports having a fever and chills last night, self-resolved and fever free today. Transferred here for additional management. Hematoma s/p laminectomy L2-L4, kyphoplasty of L3, bone grafting to posterior lateral gutters on 11/22/24 #Lumbar burst fracture #Spinal stenosis lumbar region * Admit to [facility] for further management * Lumbar Spine CT showing redemonstration of recent burst type fracture of L3 vertebral body with severe retropulsion. New large intermediate density fluid in the surgical bed extending to the spinal canal, paraspinal muscles and posteriorly to the skin. These may represent hematomas and superinfection is possible. * Ortho Spine notified in ED of CT Spine findings-" Ortho to formally consult tomorrow with possible plan for OR; Ortho suspect hematoma; NPO at [place] * +fever and chills yesterday, stable wbc-> will give empiric Zosyn and Dapto * Blood culture pending * PT/OT when able * Pain control with acetaminophen; no Dilaudid d/t hx of hallucinations last admission #Anemia * Hgb 8.4 on 11/27; now Hgb 7.4 * No evidence of active bleeding * 1 unit PRBC transfused today * Recheck H&H this evening post-transfusion * CBC with AM labs #H/O mechanical aortic valve replacement * Anticoagulated with Warfarin; INR supratherapeutic 3.6 * Hold Warfarin; Vitamin K given * INR with AM labs #Multiple myeloma * Follows Dr. Fields Oncology * CT abdomen/pelvis showing enlargement of the large heterogeneous hepatic masslike density with new small nodular lesions along the margin of the dominant mass. Malignancy suspected. * Patient and Oncology aware of finding with plan to follow-up OP once back issues resolved DVT Ppx: Code status: DNR/DNI PCP: Dr. Elis Swain Dispo: Admit for further management and care Patient seen in collaboration with Dr. Billingsley. Please see addendum.I spent a total of 70 minutes coordinating, documenting and providing care for this patient excluding time spent in the performance of separately billed services or time spent by another provider/QHP. (2) Lumbar burst fracture: (3) Spinal stenosis of lumbar region: (4) Lumbar radiculopathy, acute: (5) H/O mechanical aortic valve replacement: (6) Multiple myeloma: History of Present Illness Primary Care Provider: Elis Swain MD Patient is a 84 year old F with a past medical history of DM Type II, HLD, spinal stenosis of lumbar region, lumbar radiculopathy s/p laminectomy an L3 burst fracture repair (11/22), Diaz's esophagitis, anemia of chronic dx, H/O mechanical valve aortic valve replacement on warfarin, CKD Stage III, CAD (50- 69% DIANA stenosis. <50% LICA stenosis), Multiple myeloma with liver lesion (follows Dr. Fields) presenting with low back pain with radiation and numbness to LLE. Patient was admitted from 11/22-11/27 and discharged to [facility] for additional management and physical rehab. Ongoing lumbar pain since back surgery that worsened 2 days ago; pain travelling down LLE. Reports having a fever and chills last night, self-resolved and fever free today. Transferred here for additional management. Denies chills, weight loss, headache, cognitive changes, vision/hearing changes, chest pain, SOB, swelling, difficulty breathing, urinary concerns, N/V/D, joint swelling/pain, skin rashes, lesions, bleeding, bruising. In the emergency department, patient was hemodynamically stable with no apparent signs of infection, white count normal, no signs of sepsis. Found to have Hgb 7.4 without signs of active bleeding. Lumbar Spine CT showing New large intermediate density fluid in the surgical bed extending to the spinal canal, paraspinal muscles and posteriorly to the skin, representing hematomas vs superinfection. Ortho Spine contacted in the ED, reporting suspected hematoma. Patient noted to have metal in body, unable to have MRI. CT abdomen/pelvis showed Interval enlargement of the large heterogeneous hepatic masslike density with new small nodular lesions along the margin of the dominant mass. Malignancy suspected. Patient known to Dr. Fields , Oncology, and aware of finding with plan to follow up outpatient after issues with spine resolved. History obtained primarily from the patient and via hospitalization record. Allergies Allergy/AdvReac Type Severity Reaction Status Date / Time No Known Allergies Allergy Verified 12/05/24 15:28 Home Medications Medication Instructions Recorded Confirmed Type acetaminophen 500 mg capsule 1,000 mg PO Q8H 09/13/24 12/05/24 History amlodipine 5 mg tablet 5 mg PO BID 09/13/24 12/05/24 History pantoprazole 40 mg tablet,delayed 40 mg PO BID #60 tabs 10/07/24 12/05/24 Rx release bisacodyl 10 mg rectal suppository 10 mg MT DAILY PRN Constipation 10/28/24 12/05/24 History (Dulcolax (bisacodyl)) buspirone 5 mg tablet 5 mg PO TID 10/28/24 12/05/24 History ondansetron HCl 4 mg tablet 4 mg PO Q6H PRN n/v 11/19/24 12/05/24 History sodium phosphates 19 gram-7 118 ml MT DAILY PRN constipation 11/19/24 12/05/24 History gram/118 mL enema (Fleet Enema) metoprolol succinate 25 mg 12.5 mg (1/2 x 25 mg) PO DAILY #30 11/27/24 12/05/24 Rx tablet,extended release 24 hr tabs (Toprol XL) Saccharomyces boulardii 250 mg 250 mg PO BID 12/05/24 12/05/24 History capsule (Florastor) atorvastatin 10 mg tablet 10 mg PO DAILY 12/05/24 12/05/24 History docusate sodium 100 mg capsule 100 mg PO BID PRN Constipation 12/05/24 12/05/24 History insulin aspart U-100 100 unit/mL 1 sliding scale dose subcut ACHS 12/05/24 12/05/24 History subcutaneous solution (Novolog U-100 Insulin aspart) loperamide 2 mg tablet (Imodium 2 mg PO Q6H PRN Diarrhea 12/05/24 12/05/24 History A-D) magnesium oxide 400 mg PO BID 12/05/24 12/05/24 History melatonin 3 mg tablet 6 mg PO HS PRN Insomnia 12/05/24 12/05/24 History metformin 500 mg tablet,extended 500 mg PO DAILY 12/05/24 12/05/24 History release 24 hr naloxone 4 mg/actuation nasal spray 4 mg intranasal DIRECTED PRN 12/05/24 12/05/24 History OPOID OVERDOSE polyethylene glycol 3350 17 17 g PO QDL PRN Constipation 12/05/24 12/05/24 History gram/dose oral powder (Miralax) pregabalin 25 mg capsule 50 mg PO BID 12/05/24 12/05/24 History sennosides 8.6 mg-docusate sodium 1 tab-cap PO QDL PRN Constipation 12/05/24 12/05/24 History 50 mg tablet (Senokot-S) sodium hypochlorite 0.125 % 1 applic topical DAILY PRN Itching 12/05/24 12/05/24 History solution (Dakin's Solution) warfarin 6 mg tablet 6 mg PO QPM 12/05/24 12/05/24 History Past Med/Surg History Problem List (Updated 12/06/24 @ 10:33 by Nikolas Valdez DO) Trochanteric bursitis of left hip Hematoma (Acute) Acute kidney injury Severe sepsis with acute organ dysfunction MRSA nasal colonization Atrial flutter with rapid ventricular response Spinal stenosis of lumbar region Chronic disease anemia Lumbar radiculopathy, acute L3 vertebral fracture Esophageal ulceration 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 Pressure ulcer of buttock, unstageable H/O mechanical aortic valve replacement Warfarin anticoagulation Acute renal failure superimposed on stage 3 chronic kidney disease Acute blood loss anemia Lumbar burst fracture Hypotension Symptomatic anemia (Acute) Anemia requiring transfusions (Acute) Acute upper GI bleed (Acute) Medical History [facility] resident resident of [facility] Anemia requiring transfusions Acute renal failure superimposed on stage 3 chronic kidney disease 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 <50% LICA stenosis. Aortic valve disease s/p AVR (2005) Echo 07/[address] Eric/[place] Reason for Jantoven/warfarin Osteoarthritis History of gallbladder disease No recent issues Liver lesion Follows with Dr. Fields/[facility] Diabetes mellitus, type 2 Multiple myeloma "Smoldering" Follows with Dr. Fields/[facility] Hx infusions, no current tx Hypertension Hyperlipidemia Surgical History History of cardiac cath 2005- no stents 03/2022- no stents, mild non-obstructive CAD History of dilatation and curettage History of colonoscopy History of cataract surgery R/L History of tonsillectomy Aortic valve replaced 10/2005, mechanical valve Family History Mother Diabetes Son Diabetes Social History Smoking Status: Never smoker Second Hand Exposure: No; Do You Dip or Chew Tobacco: No; Hx Alcohol Use: No Hx Substance Use: No Preferred Language: Syriac Communication Ability: Effective Bench Assembler Electrical Required: No Beliefs That Will Affect Care: None Current Living Situation: Spouse Current Living Situation Comment: patient lives with who has dementia, she takes care of him. Other Information That Helps Us Care for You: No Feels Safe at Home: Yes Safety Concerns: Feels Safe At This Time Assistive Devices: Walker, Wheelchair and Other Review of Systems Review of Systems: All systems reviewed & are unremarkable except as noted in HPI & below Physical Exam Physical Exam: VITALS: Reviewed. WEIGHT/BMI reviewed. GEN: Healthy appearing, well-developed, NAD. PSYCH: Good Judgment. AOx4. Normal memory, mood, and affect. HEENT -Head: NC/AT; -Eyes: PERRL, EOMI. No discharge or redn ess; -Ears: External ears are normal. -Nose: Normal nares. -Mouth and throat: MMM. Normal gums, muc dimitrios, palate,. Good dentition. NECK: Supple, with no masses. CV: RRR, no m/r/g. LUNGS: CTAB, no w/r/c. ABD: Soft, NT/ND, NBS, no masses or organomegaly. : N/A SKIN: Warm, well perfused. Dressing to lower back intact and clean. MSK: No deformities, Strength 3/5 LLE. EXT: No clubbing, cyanosis, or edema. NEURO: CN II-XII grossly intact. No focal deficits. Results & Data Results & Data Vital Signs (Past 12 Hours) Vital Signs Temp Pulse Pulse Resp BP BP Pulse Ox 12/05/24 16:00 78 18 155/65 H 96 12/05/24 15:40 73 12/05/24 15:01 12/05/24 14:41 37 C 75 14 149/79 H 98 O2 Del Method 12/05/24 16:00 12/05/24 15:40 12/05/24 15:01 Room Air 12/05/24 14:41 Room Air Laboratory Results Short CBC 12/05/24 Range/Units 14:45 WBC 9.51 (4.8-10.8) K/ul Hgb 7.4 L (12.0-16.0) g/dl Hct 23.6 L (37.0-47.0) % Plt Count 85 L (130-400) K/uL BMP 12/05/24 14:45 Sodium 142 Potassium 4.0 Chloride 112 H Carbon Dioxide 23 BUN 48 H Creatinine 1.21 H Glucose 161 H Calcium 8.9 Liver Function 12/05/24 Range/Units 14:45 Total Bilirubin 0.5 (0.2-1.0) mg/dl Direct Bilirubin 0.1 (0-0.2) mg/dl AST 19 (13-39) U/L ALT 13 (7-52) U/L Alkaline Phosphatase 411 H (34-104) U/L Albumin 2.9 L (3.4-5.0) gm/dl Diagnostic Findings Lumbar Spine CT 12/05/24 15:00 CT LUMBAR SPINE WITH CONTRAST: HISTORY: PAIN TECHNIQUE: Enhanced CT examination of the lumbar spine is performed. Coronal and sagittal reformats were created. IV CONTRAST: 100 mL of OMNIPAQUE 300 COMPARISON: Lumbar spine CT October 03, 2024 FINDINGS: LUMBAR SPINE: Redemonstration of recent burst type fracture of L3 vertebral body with severe retropulsion.Recent traumatic fractures of the L2 spinous process and L3 right transverse process Interval decompressive laminectomy at this level and kyphoplasty changes. There is a new large intermediate density fluid within the laminectomy bed extending into the paraspinal muscles, the spinal canal and posteriorly to the skin. IMPRESSION: Redemonstration of recent burst type fracture of L3 vertebral body with severe retropulsion. Interval decompressive laminectomy at this level and kyphoplasty changes. New large intermediate density fluid in the surgical bed extending to the spinal canal, paraspinal muscles and posteriorly to the skin. These may represent hematomas and superinfection is possible. Please correlate with fluid sampling. The fluid extends into the spinal canal as an epidural fluid. Lumbar spine MRI evaluation may be obtained if indicated Recent traumatic fractures of the L2 spinous process and L3 right transverse process. These were not definitively seen in prior lumbar spine CT and may be intervally new. Electronically signed by Rodrigue Call 12-05-2024 4:37 PM Abdomen/Pelvis CT 12/05/24 15:01 CT ABDOMEN and PELVIS with INTRAVENOUS CONTRAST HISTORY: Abdominal pain TECHNIQUE: CT abdomen and pelvis with contrast. IV CONTRAST: 100 mL of OMNIPAQUE 300 ENTERIC CONTRAST: Not Given COMPARISON: CT abdomen pelvis October 02, 2024. FINDINGS: LOWER CHEST: Small pleural fluid, increased from previous. Cardiomegaly with dense valvular calcifications. LIVER: The large hepatic mass appears to have grown in size in the interim. There are small new nodular extensions/lesions along the margin of the dominant mass (for example as seen in series 300, image 22). GALLBLADDER/BILIARY: Surgically absent gallbladder. No abnormal biliary dilatation. There is a small quantity of pneumobilia. SPLEEN: Mild splenomegaly, unchanged. PANCREAS: Unremarkable. ADRENALS: Unremarkable. KIDNEYS: Atrophic kidneys with cortical cysts. No stones or hydronephrosis identified. PERITONEUM/RETROPERITONEUM. Small presacral fluid. No lymphadenopathy by size criteria. No aortic aneurysm. GASTROINTESTINAL: No obstruction. Colonic diverticulosis without evidence of diverticulitis. Normal appendix. REPRODUCTIVE: No suspicious pelvic masses identified URINARY BLADDER: Unremarkable BONES: Please refer to separately dictated lumbar spine CT report. IMPRESSION: Interval enlargement of the large heterogeneous hepatic masslike density with new small nodular lesions along the margin of the dominant mass. Given growth, malignancy would be suspected. Complex fluid collection not excluded. Open please correlate with clinical workup up to this point and if indicated MRI evaluation may be obtained when clinically appropriate. New small pneumobilia. Small pleural fluids. Electronically signed by Rodrigue Call 12-05-2024 4:37 PM Code Status & VTE Plan VTE Prophylaxis Plan VTE Prophylaxis will be ordered: Yes
--- NOTE | 2024-12-05 19:00 | Communication Note ---
Date of Service: December 05, 2024 Attending Addendum: Case reviewed with the advanced practitioner. I have personally performed a history and physical examination on the patient. I have reviewed the advanced practitioner's documentation on the date of service referenced in note, and I agree with, and take responsibility for the plan of care. please refer to her notes for full details patient seen and examined, records reviewed by myself as well on exam, patient seen resting in bed, not in distress reports low back pain no chest pain, dyspnea, palpitations, dizziness reports fever and chills last evening no other symptoms VS noted and reviewed oriented x 3, not in distress, speaks in sentences with no effort nor accessory muscle use normal rate, regular rhythm, no murmurs clear breath sounds bilaterally non distended, soft, nontender no bipedal edema, erythema, warmth no neuro deficits all labs, imaging noted and reviewed ASSESSMENT AND PLAN> LUMBAR SPINE FLUID COLLECTION POSSIBLE HEMATOMA, VS INFECTION RECENT LUMBAR SPINE SURGERY, KENRICK FLEMING wound and blood cultures empiric Dapto + Zosyn Ortho Spine consulted ANEMIA, IN THE SETTING OF POSSIBLE SPINAL HEMATOMA ON CHRONIC COUMADIN, FOR MECHANICAL VALVE Hg 7.4 baseline 8.4 1 unit pRBC ordered, repeat this evening anemia panel tomorrow Vit K 5mg po ordered INR daily other diagnoses and plan of care as per advanced practitioner's notes I spent a total of 35 minutes coordinating, documenting, and providing care for this patient, excluding time spent in the performance of separately billed services or time spent by another provider/QHP. Jef Billingsley MD
[2024-12-05] MEDS: ACETAMINOPHEN 500 MG TAB PO STA (19:44)
[2024-12-05] MEDS: PIPERACILLIN/TAZOBACTAM 4.5 GM/100 ML BAG IV STA (20:01)
[2024-12-05] MEDS ORDERED: MAGNESIUM HYDROXIDE SUSP 30 ML UDC PO PRN (21:55)
[2024-12-05] MEDS ORDERED: POLYETHYLENE (MIRALAX) 17 GM PACK PO PRN (21:55)
[2024-12-05] MEDS ORDERED: ONDANSETRON INJ 2 MG/ML 2 ML VIAL IV PRN (21:55)
[2024-12-05] MEDS ORDERED: ALUMINUM/MAGNESIUM SUSP 30 ML UDC PO PRN (21:55)
[2024-12-05] MEDS: ACETAMINOPHEN 325 MG TAB PO PRN (22:14)
[2024-12-05] MEDS: PREGABALIN 50 MG CAP PO SCH (22:14)
[2024-12-05] MEDS: DAPTOmycin 500 MG in SYRINGE 0 ML IV SCH (22:15)
[2024-12-05] MEDS: busPIRone 5 MG TAB PO SCH (22:15)
[2024-12-05 23:51] LABS: Hematocrit (blood only) 21.1 % (37.0-47.0); Hemoglobin 6.9 g/dl (12.0-16.0)
[2024-12-06] MEDS: ACETAMINOPHEN 500 MG TAB PO ONE (00:03)
[2024-12-06] MEDS: PIPERACILLIN/TAZOBACTAM 4.5 GM/100 ML BAG IV SCH (01:25)
[2024-12-06 07:17] LABS: Hematocrit (blood only) 26.2 % (37.0-47.0); Hemoglobin 8.6 g/dl (12.0-16.0); Mean Corpuscular Hemoglobin 29.2 pg (25.0-34.0); Mean Corpuscular Volume 88.8 fL (80.0-100.0); Platelet Count 73 K/uL (130-400); RDW Standard Deviation 52.3 fL (36.4-46.3); Red Blood Count 2.95 M/uL (4.20-5.40); White Blood Count 7.60 K/ul (4.8-10.8)
[2024-12-06 07:34] LABS: Anion Gap 8.0 (3-11); Blood Urea Nitrogen 40.0 mg/dl (6-23); Calcium 8.7 mg/dl (8.6-10.3); Carbon Dioxide 23.0 mmol/L (21-32); Chloride 113.0 mmol/L (98-107); Creatinine Clr Calc Pharmacy 40.3 ml/min; Glucose 110.0 mg/dl (70-99(Fasting)); Potassium 3.8 mmol/L (3.5-5.1); Sodium 144.0 mmol/L (136-145)
--- NOTE | 2024-12-06 07:37 | Hospitalist Progress Note ---
Date of Service December 06, 2024 Assessment & Plan (1) Hematoma: Plan: Patient is a 84 year old F with a past medical history of DM Type II, HLD, spinal stenosis of lumbar region, lumbar radiculopathy s/p laminectomy an L3 burst fracture repair (11/22), Diaz's esophagitis, anemia of chronic dx, H/O mechanical valve aortic valve replacement on warfarin, CKD Stage III, CAD (50- 69% DIANA stenosis. <50% LICA stenosis), [facility] presenting with low back pain with radiation and numbness to LLE. Patient was admitted from 11/22-11/27 and discharged to [facility] for additional management and physical rehab. Ongoing lumbar pain since back surgery that worsened 2 days ago; pain travelling down LLE. Reports having a fever and chills last night, self-resolved and fever free today. Transferred here for additional management. Lumbar spine fluid collection possible Hematoma , vs infection s/p laminectomy L2-L4, kyphoplasty of L3, bone grafting to posterior lateral gutters on 11/22/24 #Lumbar burst fracture #Spinal stenosis lumbar region * Lumbar Spine CT showing redemonstration of recent burst type fracture of L3 vertebral body with severe retropulsion. New large intermediate density fluid in the surgical bed extending to the spinal canal, paraspinal muscles and posteriorly to the skin. These may represent hematomas and superinfection is possible. * Ortho Spine consulted and notified in ED * +fever and chills prior to admission, stable wbc-> was started on empiric Zosyn and Dapto * Blood culture pending, wound cultx - not seen ordered, will discuss w/ ortho if able to obtain * PT/OT when able * Pain control with acetaminophen; no Dilaudid d/t hx of hallucinations last admission #Anemia * Hgb 8.4 on 11/27; on admission Hgb 7.4 * s/p 2 units PRBCs, current Hgb 8.6, will re-check H&H this PM * CBC with AM labs #H/O mechanical aortic valve replacement * Anticoagulated with Warfarin; INR supratherapeutic 3.6 on admission * Hold Warfarin; Vitamin K given * INR 2.7 this AM, cont. to monitor INR closely #Multiple myeloma * Follows Dr. Fields Oncology * CT abdomen/pelvis showing enlargement of the large heterogeneous hepatic masslike density with new small nodular lesions along the margin of the dominant mass. Malignancy suspected. * Patient and Oncology aware of finding with plan to follow-up OP once back issues resolved DVT Ppx: Code status: DNR/DNI PCP: Dr. Elis Swain Dispo: Admit for further management and care (2) Lumbar burst fracture: (3) Spinal stenosis of lumbar region: (4) Lumbar radiculopathy, acute: (5) H/O mechanical aortic valve replacement: (6) Multiple myeloma: Admission and Anticipated Discharge Date Admission Date: December 05, 2024 Subjective Pt seen in follow up Pt recently s/p lumbar spine surgery, has hx of mechan. valve, on anticoagulation w/ coumadin. Presents w/ anemia, on imaging hematoma, vs infection Pt reports she had fever at the rehab, afebrile here Received 2 units of pRBC, vit. K oral, coumadin on hold Ortho-spine (Dr. Valdez) consulted Currently pt is lying in bed in NAD, overall says she is doing well just sore She is awake, alert, was on the phone with family prior to me talking to her Denies any chest pain, shortness of breath, denies abd. pain, n/v Review of Systems Review of Systems: All systems reviewed & are unremarkable except as noted in Subjective Physical Exam Physical Exam: GEN: WD/WN elderly F in NAD. HEENT : NC/AT, EOMI NECK: Supple CV: RRR, no m/r/g. LUNGS: CTAB ABD: Soft, NT/ND, NBS MSK : moves extremities Back: dressings noted over lumbar spine, dry, clean, no edema, ecchymosis noted SKIN: Warm, dry NEURO: awake, alert, answers appropriately, speech fluent, no facial asymmetry, moves extremities Results & Data Results & Data Vital Signs (Past 12 Hours) Vital Signs Temp Pulse Pulse Pulse Resp BP BP 12/06/24 04:17 36.7 C 67 18 128/70 12/06/24 03:21 37 C 67 18 151/75 H 12/06/24 02:21 36.9 C 70 18 147/72 H 12/06/24 01:51 37 C 68 18 151/54 H 12/06/24 01:36 36.6 C 73 18 149/73 H 12/06/24 01:20 36.9 C 72 20 149/65 H 12/05/24 22:49 36.6 C 65 18 154/63 H 12/05/24 22:00 12/05/24 22:00 36.6 C 64 16 159/68 H 12/05/24 21:54 68 12/05/24 21:18 36.8 C 80 20 157/60 H 12/05/24 21:02 36.9 C 75 20 157/60 H 12/05/24 21:01 75 20 157/60 H 12/05/24 20:02 36.8 C 85 21 166/76 H 12/05/24 19:41 81 Pulse Ox O2 Del Method 12/06/24 04:17 94 12/06/24 03:21 94 12/06/24 02:21 96 12/06/24 01:51 95 12/06/24 01:36 95 12/06/24 01:20 94 12/05/24 22:49 98 Room Air 12/05/24 22:00 Room Air 12/05/24 22:00 97 Room Air 12/05/24 21:54 12/05/24 21:18 98 12/05/24 21:02 98 12/05/24 21:01 96 Room Air 12/05/24 20:02 98 12/05/24 19:41 Laboratory Results 12/06/24 12/05/24 12/05/24 Range/Units 06:19 23:06 18:02 WBC 7.60 (4.8-10.8) K/ul RBC 2.95 L (4.20-5.40) M/uL Hgb 8.6 L 6.9 L* (12.0-16.0) g/dl POC Hgb (12.0-16.0) g/dl Hct 26.2 L 21.1 L (37.0-47.0) % POC Hct (37-47) % MCV 88.8 (80.0-100.0) fL MCH 29.2 (25.0-34.0) pg MCHC 32.8 (32.0-36.0) g/dL RDW Std Deviation 52.3 H (36.4-46.3) fL RDW Coeff of Nora 16.1 H (11.5-14.5) % Plt Count 73 L (130-400) K/uL MPV 12.1 (9.4-12.4) fL Immature Gran % (Auto) % Neut % (Auto) % Lymph % (Auto) % [place] % (Auto) % Eos % (Auto) % Baso % (Auto) % Neut # (Auto) (1.40-6.50) K/uL Lymph # (Auto) (1.20-3.40) K/uL [place] # (Auto) (0.11-0.59) K/uL Eos # (Auto) (0.00-0.50) K/uL Baso # (Auto) (0.00-0.20) K/uL Immature Gran # (Auto) (0.01-0.20) K/uL RBC Morphology PT Pending (9.0-12.0) Seconds INR Pending (0.9-1.1) APTT (21-31) Seconds PTT Ratio POC Sodium (135-144) mmol/L Sodium 144 (136-145) mmol/L POC Potassium (3.3-5.0) mmol/L Potassium 3.8 (3.5-5.1) mmol/L POC Chloride (101-112) mmol/L Chloride 113 H (98-107) mmol/L Carbon Dioxide 23 (21-32) mmol/L POC Total CO2 (24-31) mmol/L Anion Gap 8 (3-11) POC Anion Gap (16-25) mmol/L POC BUN (7-18) mg/dl BUN 40 H (6-23) mg/dl Creatinine 1.12 (0.6-1.2) mg/dl POC Creatinine (0.6-1.3) mg/dl Est Cr Clr Drug Dosing 40.3 ml/min eGFR 49.10 BUN/Creatinine Ratio 35.7 H (10-20) Glucose 110 H (70-99(Fasting)) mg/dl POC Glucose (other) (70-99) mg/dl Calcium 8.7 (8.6-10.3) mg/dl POC Ioniz Calcium Lianna (1.12-1.32) mmol/l Total Bilirubin (0.2-1.0) mg/dl Direct Bilirubin (0-0.2) mg/dl AST (13-39) U/L ALT (7-52) U/L Alkaline Phosphatase (34-104) U/L Total Protein (6.0-8.3) gm/dl Albumin (3.4-5.0) gm/dl Lipase (11-82) U/L SARS-CoV-2, RNA, NAAT NEGATIVE (NEGATIVE) Blood Type Antibody Screen Crossmatch 12/05/24 12/05/24 12/05/24 Range/Units 15:03 14:48 14:45 WBC 9.51 (4.8-10.8) K/ul RBC 2.60 L (4.20-5.40) M/uL Hgb 7.4 L (12.0-16.0) g/dl POC Hgb 6.1 L* (12.0-16.0) g/dl Hct 23.6 L (37.0-47.0) % POC Hct 18 L* (37-47) % MCV 90.8 (80.0-100.0) fL MCH 28.5 (25.0-34.0) pg MCHC 31.4 L (32.0-36.0) g/dL RDW Std Deviation 55.1 H (36.4-46.3) fL RDW Coeff of Nora 16.8 H (11.5-14.5) % Plt Count 85 L (130-400) K/uL MPV 12.6 H (9.4-12.4) fL Immature Gran % (Auto) 3.0 % Neut % (Auto) 68.0 % Lymph % (Auto) 13.8 % Ber[place] % (Auto) 14.9 % Eos % (Auto) 0.2 % Baso % (Auto) 0.1 % Neut # (Auto) 6.46 (1.40-6.50) K/uL Lymph # (Auto) 1.31 (1.20-3.40) K/uL Ber[place] # (Auto) 1.42 H (0.11-0.59) K/uL Eos # (Auto) 0.02 (0.00-0.50) K/uL Baso # (Auto) 0.01 (0.00-0.20) K/uL Immature Gran # (Auto) 0.29 H (0.01-0.20) K/uL RBC Morphology Unremarkable PT 35.1 H (9.0-12.0) Seconds INR 3.6 H (0.9-1.1) APTT 74 H (21-31) Seconds PTT Ratio 2.8 POC Sodium 143 (135-144) mmol/L Sodium 142 (136-145) mmol/L POC Potassium 4.0 (3.3-5.0) mmol/L Potassium 4.0 (3.5-5.1) mmol/L POC Chloride 110 (101-112) mmol/L Chloride 112 H (98-107) mmol/L Carbon Dioxide 23 (21-32) mmol/L POC Total CO2 20 L (24-31) mmol/L Anion Gap 7 (3-11) POC Anion Gap 18.0 (16-25) mmol/L POC BUN 41 H (7-18) mg/dl BUN 48 H (6-23) mg/dl Creatinine 1.21 H (0.6-1.2) mg/dl POC Creatinine 1.3 (0.6-1.3) mg/dl Est Cr Clr Drug Dosing 38.6 ml/min eGFR 44.75 BUN/Creatinine Ratio 39.7 H (10-20) Glucose 161 H (70-99(Fasting)) mg/dl POC Glucose (other) 159 H (70-99) mg/dl Calcium 8.9 (8.6-10.3) mg/dl POC Ioniz Calcium Lianna 1.17 (1.12-1.32) mmol/l Total Bilirubin 0.5 (0.2-1.0) mg/dl Direct Bilirubin 0.1 (0-0.2) mg/dl AST 19 (13-39) U/L ALT 13 (7-52) U/L Alkaline Phosphatase 411 H (34-104) U/L Total Protein 6.5 (6.0-8.3) gm/dl Albumin 2.9 L (3.4-5.0) gm/dl Lipase 31 (11-82) U/L SARS-CoV-2, RNA, NAAT (NEGATIVE) Blood Type O Negative Antibody Screen NEGATIVE Crossmatch See Detail Medications Administered Current Inpatient Medications Acetaminophen (Acetaminophen 325 Mg Tab) 650 mg PO Q4H PRN PRN Reason: Pain or Fever Stop: 01/04/25 21:54 Last Admin: 12/06/24 08:05 Dose: 650 mg Al Hydrox/Mg Hydrox/Simethicone (Aluminum/Magnesium Susp 30 Ml Udc) 15 ml PO Q4H PRN PRN Reason: Dyspepsia Stop: 01/04/25 21:54 Amlodipine Besylate (Amlodipine Besylate 5 Mg Tab) 5 mg PO BID [facility] Stop: 01/04/25 20:59 Last Admin: 12/06/24 08:06 Dose: 5 mg Atorvastatin Calcium (Atorvastatin 10 Mg Tab) 10 mg PO DAILY [facility] Stop: 01/05/25 08:59 Last Admin: 12/06/24 08:06 Dose: 10 mg Buspirone HCl (Buspirone 5 Mg Tab) 5 mg PO TID [facility] Stop: 01/04/25 20:59 Last Admin: 12/06/24 08:06 Dose: 5 mg Docusate Sodium (Docusate Sodium 100 Mg Cap) 100 mg PO BID PRN PRN Reason: Constipation Stop: 01/04/25 18:24 Last Admin: 12/06/24 08:05 Dose: 100 mg Daptomycin 500 mg/ Syringe 10 mls @ 5 mls/min IV Q24H [facility]; Protocol Stop: 01/16/25 21:29 Last Admin: 12/05/24 22:15 Dose: 5 mls/min Piperacillin Sod/Tazobactam Sod (Zosyn) 4.5 gm in 100 mls @ 25 mls/hr IV Q8H [facility]; Protocol Stop: 01/17/25 01:59 Last Admin: 12/06/24 09:08 Dose: 25 mls/hr Magnesium Hydroxide (Magnesium Hydroxide Susp 30 Ml Udc) 30 ml PO Q12H PRN PRN Reason: Constipation Stop: 01/04/25 21:54 Metoprolol Succinate (Metoprolol Succ 25mg Ext Rel Tab) 12.5 mg PO DAILY [facility] Stop: 01/05/25 08:59 Last Admin: 12/06/24 08:06 Dose: 12.5 mg Ondansetron HCl (Ondansetron Inj 2 Mg/Ml 2 Ml Vial) 4 mg IV Q6H PRN PRN Reason: Nausea Stop: 01/04/25 21:54 Pantoprazole Sodium (Pantoprazole 40 Mg Tab) 40 mg PO BID [facility] Stop: 01/04/25 20:59 Last Admin: 12/06/24 08:07 Dose: 40 mg Polyethylene Glycol (Polyethylene (Miralax) 17 Gm Pack) 17 gm PO DAILY PRN PRN Reason: Constipation Stop: 01/04/25 21:54 Pregabalin (Pregabalin 50 Mg Cap) 50 mg PO BID [facility] Stop: 01/04/25 20:59 Last Admin: 12/06/24 08:07 Dose: 50 mg
[2024-12-06] MEDS: DOCUSATE SODIUM 100 MG CAP PO PRN (08:05)
[2024-12-06] MEDS: METOPROLOL SUCC 25MG EXT REL TAB PO SCH (08:06)
[2024-12-06] MEDS: ATORVASTATIN 10 MG TAB PO SCH (08:06)
[2024-12-06 08:41] LABS: INR 2.7 (0.9-1.1); Prothrombin Time 27.2 Seconds (9.0-12.0)
--- NOTE | 2024-12-06 10:34 | Orthopedic Consultation ---
Date of Consultation December 06, 2024 Assessment & Plan (1) Trochanteric bursitis of left hip: At this time we we will acknowledge a epidural hematoma. She is supratherapeutic at this time with her INR. Nevertheless I do not appreciate signs of gross neural compression. Her symptoms seem to be musculoskeletal in nature directly along the IT band on the left. I would like to give her a short course of steroids to see if this resolves some of her discomfort. Undoubtedly these tendons were exacerbated as she began ambulation after prolonged bedrest. I strongly suspect she will improve and we can return her to rehab in a short period of time. History of Present Illness Reason for Consultation: Left leg pain Attending Physician: Chang Martinez MD History of Present Illness This is a 84-year-old female known to me the status post lumbar kyphoplasty decompression and fusion. She was at rehab. Had been progressing with ambulation between the parallel bars. Friday began experiencing left leg pain. Describes her pain as involving the left lateral thigh to the knee. It hurts to lay on the left side. She denies any significant back pain denies any numbness or tingling in her lower extremities. Of note she had not been ambulatory for several months. Allergies Allergy/AdvReac Type Severity Reaction Status Date / Time No Known Allergies Allergy Verified 12/05/24 15:28 Home Medications Medication Instructions Recorded Confirmed Type acetaminophen 500 mg capsule 1,000 mg PO Q8H 09/13/24 12/05/24 History amlodipine 5 mg tablet 5 mg PO BID 09/13/24 12/05/24 History pantoprazole 40 mg tablet,delayed 40 mg PO BID #60 tabs 10/07/24 12/05/24 Rx release bisacodyl 10 mg rectal suppository 10 mg KS DAILY PRN Constipation 10/28/24 12/05/24 History (Dulcolax (bisacodyl)) buspirone 5 mg tablet 5 mg PO TID 10/28/24 12/05/24 History ondansetron HCl 4 mg tablet 4 mg PO Q6H PRN n/v 11/19/24 12/05/24 History sodium phosphates 19 gram-7 118 ml KS DAILY PRN constipation 11/19/24 12/05/24 History gram/118 mL enema (Fleet Enema) metoprolol succinate 25 mg 12.5 mg (1/2 x 25 mg) PO DAILY #30 11/27/24 12/05/24 Rx tablet,extended release 24 hr tabs (Toprol XL) Saccharomyces boulardii 250 mg 250 mg PO BID 12/05/24 12/05/24 History capsule (Florastor) atorvastatin 10 mg tablet 10 mg PO DAILY 12/05/24 12/05/24 History docusate sodium 100 mg capsule 100 mg PO BID PRN Constipation 12/05/24 12/05/24 History insulin aspart U-100 100 unit/mL 1 sliding scale dose subcut ACHS 12/05/24 12/05/24 History subcutaneous solution (Novolog U-100 Insulin aspart) loperamide 2 mg tablet (Imodium 2 mg PO Q6H PRN Diarrhea 12/05/24 12/05/24 History A-D) magnesium oxide 400 mg PO BID 12/05/24 12/05/24 History melatonin 3 mg tablet 6 mg PO HS PRN Insomnia 12/05/24 12/05/24 History metformin 500 mg tablet,extended 500 mg PO DAILY 12/05/24 12/05/24 History release 24 hr naloxone 4 mg/actuation nasal spray 4 mg intranasal DIRECTED PRN 12/05/24 12/05/24 History OPOID OVERDOSE polyethylene glycol 3350 17 17 g PO QDL PRN Constipation 12/05/24 12/05/24 History gram/dose oral powder (Miralax) pregabalin 25 mg capsule 50 mg PO BID 12/05/24 12/05/24 History sennosides 8.6 mg-docusate sodium 1 tab-cap PO QDL PRN Constipation 12/05/24 12/05/24 History 50 mg tablet (Senokot-S) sodium hypochlorite 0.125 % 1 applic topical DAILY PRN Itching 12/05/24 12/05/24 History solution (Dakin's Solution) warfarin 6 mg tablet 6 mg PO QPM 12/05/24 12/05/24 History Patient History Medical History [facility] resident resident of [facility] Anemia requiring transfusions Acute renal failure superimposed on stage 3 chronic kidney disease 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 <50% LICA stenosis. Aortic valve disease s/p AVR (2005) Echo 07/[address] Eric/Dillan Reason for Jantoven/warfarin Osteoarthritis History of gallbladder disease No recent issues Liver lesion Follows with Dr. Fields/[facility] Diabetes mellitus, type 2 Multiple myeloma "Smoldering" Follows with Dr. Fields/[facility] Hx infusions, no current tx Hypertension Hyperlipidemia Surgical History History of cardiac cath 2005- no stents 03/2022- no stents, mild non-obstructive CAD History of dilatation and curettage History of colonoscopy History of cataract surgery R/L History of tonsillectomy Aortic valve replaced 10/2005, mechanical valve Family History Mother Diabetes Son Diabetes Social History Smoking Status: Never smoker Second Hand Exposure: No; Do You Dip or Chew Tobacco: No; Hx Alcohol Use: No Hx Substance Use: No Preferred Language: Guamanian Communication Ability: Effective Busher Helper Required: No Beliefs That Will Affect Care: None Current Living Situation: Spouse Current Living Situation Comment: patient lives with who has dementia, she takes care of him. Other Information That Helps Us Care for You: No Feels Safe at Home: Yes Safety Concerns: Feels Safe At This Time Assistive Devices: Cane, Glasses and Walker Physical Exam Physical Exam: On exam she has reasonable strength plantarflexion dorsiflexion quadriceps. Negative logroll. She is markedly tender to palpation of the left trochanteric region and IT band. The incision is healing appropriately. There is no back pain to palpation. Results & Data Vital Signs (Past 12 Hours) Vital Signs Temp Pulse Pulse Pulse Resp BP BP 12/06/24 09:29 69 12/06/24 08:21 37 C 81 24 158/62 H 12/06/24 04:17 36.7 C 67 18 128/70 12/06/24 03:21 37 C 67 18 151/75 H 12/06/24 02:21 36.9 C 70 18 147/72 H 12/06/24 01:51 37 C 68 18 151/54 H 12/06/24 01:36 36.6 C 73 18 149/73 H 12/06/24 01:20 36.9 C 72 20 149/65 H 12/05/24 22:49 36.6 C 65 18 154/63 H Pulse Ox O2 Del Method 12/06/24 09:29 12/06/24 08:21 95 Room Air 12/06/24 04:17 94 12/06/24 03:21 94 12/06/24 02:21 96 12/06/24 01:51 95 12/06/24 01:36 95 12/06/24 01:20 94 12/05/24 22:49 98 Room Air
[2024-12-06] MEDS: dexAMETHasone 4 MG in SYRINGE 0 ML IV SCH (12:17)
[2024-12-06 17:11] LABS: Hematocrit (blood only) 27.9 % (37.0-47.0); Hemoglobin 9.2 g/dl (12.0-16.0)
[2024-12-06 18:47] LABS: A calco-baum cmplx NotReported Not Detected (NotDetected); Bact fragilis Not Reported Not Detected (NotDetected); Blood Culture Id Panel See PCR Comment (NotDetected); C auris Not Reported Not Detected (NotDetected); Calbicans Not Reported Not Detected (NotDetected); Candida glabrata Not Reported Not Detected (NotDetected); Candida krusei Not Reported Not Detected (NotDetected); Cneoformans/gatti Not Reported Not Detected (NotDetected); Cparapsilosis Not Reported Not Detected (NotDetected); Ctropicalis Not Reported Not Detected (NotDetected); E cloacae compx Not Reported Not Detected (NotDetected); Efaecalis Not Reported Not Detected (NotDetected); Efaecium Not Reported Not Detected (NotDetected); Enterobacterales Not Reported Not Detected (NotDetected); Escherichia coli Not Reported Not Detected (NotDetected); H influenzae Not Reported Not Detected (NotDetected); K aerogenes Not Reported Not Detected (NotDetected); Koxytoca Not Reported Not Detected (NotDetected); Kpneumoniae grp Not Reported Not Detected (NotDetected); Lmonocyt Not Reported Not Detected (NotDetected); N meningitidis Not Reported Not Detected (NotDetected); P aeruginosa Not Reported Not Detected (NotDetected); Proteus spp Not Reported Not Detected (NotDetected); Salmonella spp Not Reported Not Detected (NotDetected); Staph lugdunensis Not Reported Not Detected (NotDetected); Staph spp. Not Reported DETECTED (NotDetected); Staphaureus Not Reported Not Detected (NotDetected); Staphepi Not Reported DETECTED (NotDetected); Staphylococcus spp. DETECTED (NotDetected); Stenmaltophilia Not Reported Not Detected (NotDetected); Strep agal(GrpB) Not Reported Not Detected (NotDetected); Strep pneum Not Reported Not Detected (NotDetected); Strep pyog (GrpA) Not Reported Not Detected (NotDetected); Strep spp Not Reported Not Detected (NotDetected)
[2024-12-06 19:12] LABS: Staphylococcus epidermidis DETECTED (NotDetected); mecAC Resistant Gene DETECTED (NotDetected)
[2024-12-07 06:56] LABS: Hematocrit (blood only) 25.5 % (37.0-47.0); Hemoglobin 8.5 g/dl (12.0-16.0); Mean Corpuscular Hemoglobin 29.7 pg (25.0-34.0); Mean Corpuscular Volume 89.2 fL (80.0-100.0); Platelet Count 72 K/uL (130-400); RDW Standard Deviation 52.0 fL (36.4-46.3); Red Blood Count 2.86 M/uL (4.20-5.40); White Blood Count 5.65 K/ul (4.8-10.8)
[2024-12-07 07:21] LABS: Anion Gap 9.0 (3-11); Blood Urea Nitrogen 35.0 mg/dl (6-23); Calcium 8.4 mg/dl (8.6-10.3); Carbon Dioxide 22.0 mmol/L (21-32); Chloride 112.0 mmol/L (98-107); Creatine Kinase 13.0 U/L (26-192); Creatinine Clr Calc Pharmacy 36.8 ml/min; Glucose 155.0 mg/dl (70-99(Fasting)); Magnesium 1.5 mg/dl (1.7-2.4); Potassium 3.8 mmol/L (3.5-5.1); Sodium 143.0 mmol/L (136-145)
--- NOTE | 2024-12-07 11:41 | Electrocardiogram Report ---
Test Reason : Blood Pressure : */* mmHG Vent. Rate : 75 BPM Atrial Rate : 75 BPM P-R Int : 160 ms QRS Dur : 92 ms QT Int : 388 ms P-R-T Axes : 0 -29 22 degrees QTcB Int : 433 ms Normal sinus rhythm Minimal voltage criteria for LVH, may be normal variant Borderline ECG When compared with ECG of 22-Nov-2024 17:50, Sinus rhythm has replaced Atrial flutter Vent. rate has decreased by [address] no longer depressed in Lateral leads T wave inversion no longer evident in Lateral leads Confirmed by Surjit Duong ([id number]) on 12/07/2024 11:40:41 AM Referred By: Confirmed By: Surjit Duong
[2024-12-08 06:39] LABS: Hematocrit (blood only) 25.6 % (37.0-47.0); Hemoglobin 8.3 g/dl (12.0-16.0); Mean Corpuscular Hemoglobin 28.9 pg (25.0-34.0); Mean Corpuscular Volume 89.2 fL (80.0-100.0); Platelet Count 63 K/uL (130-400); RDW Standard Deviation 53.1 fL (36.4-46.3); Red Blood Count 2.87 M/uL (4.20-5.40); White Blood Count 5.24 K/ul (4.8-10.8)
[2024-12-08 06:53] LABS: Anion Gap 8.0 (3-11); Blood Urea Nitrogen 37.0 mg/dl (6-23); Calcium 8.5 mg/dl (8.6-10.3); Carbon Dioxide 23.0 mmol/L (21-32); Chloride 111.0 mmol/L (98-107); Creatinine Clr Calc Pharmacy 36.4 ml/min; Glucose 121.0 mg/dl (70-99(Fasting)); Magnesium 1.6 mg/dl (1.7-2.4); Potassium 4.0 mmol/L (3.5-5.1); Sodium 142.0 mmol/L (136-145)
--- NOTE | 2024-12-08 10:22 | Orthopedic Progress Note ---
Date of Service December 08, 2024 Assessment & Plan (1) Trochanteric bursitis of left hip: Plan: At this time would continue to encourage patient to transfer to the chair. Will continue to attempt weightbearing as tolerated. She does have a combined issue of severe trochanteric bursitis with marked deconditioning and weakness. I have given her an increase in Decadron to see if this helps with her tendinitis. Getting at this point I do not appreciate need for repeat surgery. Admission and Anticipated Discharge Date Admission Date: December 05, 2024 Subjective The patient continues to complain of some back pain and predominantly left leg pain. Is worse with activity. It is from her left lateral thigh down the IT band. She did tolerate sitting in the chair yesterday for a period of time. Weightbearing continues to be limited secondary to pain and weakness. Physical Exam Physical Exam: Patient has good strength testing. Again exhibits a negative logroll. And marked tenderness palpation of the left IT band and trochanteric region. Results & Data Vital Signs (Past 12 Hours) Vital Signs Temp Pulse Pulse Resp BP Pulse Ox O2 Del Method 12/08/24 07:53 36.6 C 70 18 160/74 H 98 Room Air 12/08/24 07:25 66 12/08/24 02:09 36.4 C L 60 16 170/65 H 96 Room Air
--- NOTE | 2024-12-08 11:13 | Hospitalist Progress Note ---
Date of Service December 07, 2024 Assessment & Plan (1) Hematoma: Plan: Patient is a 84 year old F with a past medical history of DM Type II, HLD, spinal stenosis of lumbar region, lumbar radiculopathy s/p laminectomy an L3 burst fracture repair (11/22), Diaz's esophagitis, anemia of chronic dx, H/O mechanical valve aortic valve replacement on warfarin, CKD Stage III, CAD (50- 69% DIANA stenosis. <50% LICA stenosis), Multiple myeloma with liver lesion ([facility]) presenting with low back pain with radiation and numbness to LLE. Patient was admitted from 11/22-11/27 and discharged to [facility] for additional management and physical rehab. Ongoing lumbar pain since back surgery that worsened 2 days ago; pain travelling down LLE. Reports having a fever and chills last night, self-resolved and fever free today. Transferred here for additional management. Lumbar spine fluid collection possible Hematoma , vs infection s/p laminectomy L2-L4, kyphoplasty of L3, bone grafting to posterior lateral gutters on 11/22/24 #Lumbar burst fracture #Spinal stenosis lumbar region * Lumbar Spine CT showing redemonstration of recent burst type fracture of L3 vertebral body with severe retropulsion. New large intermediate density fluid in the surgical bed extending to the spinal canal, paraspinal muscles and posteriorly to the skin. These may represent hematomas and superinfection is possible. * Ortho Spine consulted and notified in ED * +fever and chills prior to admission, stable wbc-> was started on empiric Zosyn and Dapto * Blood culture - posit. for gram posit. cocci - cont. abx, repeat blood cultx * wound cultx - not seen ordered, will discuss w/ ortho if able to obtain * PT/OT when able * Pain control with acetaminophen; no Dilaudid d/t hx of hallucinations last admission #Anemia * Hgb 8.4 on 11/27; on admission Hgb 7.4 * s/p 2 units PRBCs, current Hgb 8.5, stable from yesterday * CBC with AM labs #H/O mechanical aortic valve replacement * Anticoagulated with Warfarin; INR supratherapeutic 3.6 on admission * Hold Warfarin; Vitamin K given * INR 2.7 yesterday, cont. to monitor INR closely #Multiple myeloma * Follows Dr. Fields Oncology * CT abdomen/pelvis showing enlargement of the large heterogeneous hepatic masslike density with new small nodular lesions along the margin of the dominant mass. Malignancy suspected. * Patient and Oncology aware of finding with plan to follow-up OP once back issues resolved DVT Ppx: Code status: DNR/DNI PCP: Dr. Elis Swain Dispo: Admit for further management and care (2) Lumbar burst fracture: (3) Spinal stenosis of lumbar region: (4) Lumbar radiculopathy, acute: (5) H/O mechanical aortic valve replacement: (6) Multiple myeloma: Admission and Anticipated Discharge Date Admission Date: December 05, 2024 Subjective Pt seen in follow up Pt recently s/p lumbar spine surgery, has hx of mechan. valve, on anticoagulation w/ coumadin. Presents w/ anemia, on imaging hematoma, vs infection Pt reports she had fever at the rehab, afebrile here Received 2 units of pRBC, vit. K oral, coumadin on hold Ortho-spine (Dr. Valdez) consulted Currently pt is lying in bed in NAD, overall says she is doing well just sore, galina. hip area Denies any chest pain, shortness of breath, denies abd. pain, n/v Review of Systems Review of Systems: All systems reviewed & are unremarkable except as noted in Subjective Physical Exam Physical Exam: GEN: WD/WN elderly F in NAD. HEENT : NC/AT, EOMI NECK: Supple CV: RRR, no m/r/g. LUNGS: CTAB ABD: Soft, NT/ND, NBS MSK : moves extremities Back: dressings noted over lumbar spine, dry, clean, no edema, ecchymosis noted SKIN: Warm, dry NEURO: awake, alert, answers appropriately, speech fluent, no facial asymmetry, moves extremities Results & Data Results & Data Vital Signs (Past 12 Hours)
[2024-12-08 12:19] LABS: INR 1.8 (0.9-1.1); Prothrombin Time 18.4 Seconds (9.0-12.0)
--- NOTE | 2024-12-08 13:01 | Hospitalist Progress Note ---
Date of Service December 08, 2024 Assessment & Plan (1) Hematoma: Plan: Patient is a 84 year old F with a past medical history of DM Type II, HLD, spinal stenosis of lumbar region, lumbar radiculopathy s/p laminectomy an L3 burst fracture repair (11/22), Diaz's esophagitis, anemia of chronic dx, H/O mechanical valve aortic valve replacement on warfarin, CKD Stage III, CAD (50- 69% DIANA stenosis. <50% LICA stenosis), Multiple myeloma with liver lesion (hunter Fields) presenting with low back pain with radiation and numbness to LLE. Patient was admitted from 11/22-11/27 and discharged to [facility] for additional management and physical rehab. Ongoing lumbar pain since back surgery that worsened 2 days ago; pain travelling down LLE. Reports having a fever and chills last night, self-resolved and fever free today. Transferred here for additional management. Lumbar spine fluid collection possible Hematoma , vs infection s/p laminectomy L2-L4, kyphoplasty of L3, bone grafting to posterior lateral gutters on 11/22/24 #Lumbar burst fracture #Spinal stenosis lumbar region * Lumbar Spine CT showing redemonstration of recent burst type fracture of L3 vertebral body with severe retropulsion. New large intermediate density fluid in the surgical bed extending to the spinal canal, paraspinal muscles and posteriorly to the skin. These may represent hematomas and superinfection is possible. * Ortho Spine consulted and following - notified about blood cultx - will discuss further * +fever and chills prior to admission, stable wbc-> was started on empiric Zosyn and Dapto * Blood culture - posit. for Staph epi * - cont. abx - increase Dapto to bacteremia dose, will discuss further w/ ID * repeat blood cultx - pending * wound cultx - not seen ordered, will discuss w/ ortho if able to obtain * PT/OT when able * Pain control with acetaminophen; no Dilaudid d/t hx of hallucinations last admission #Anemia * Hgb 8.4 on 11/27; on admission Hgb 7.4 * s/p 2 units PRBCs, current Hgb 8.3, been above 8 for past 2-3 days * CBC with AM labs #H/O mechanical aortic valve replacement * Anticoagulated with Warfarin; INR supratherapeutic 3.6 on admission * Hold Warfarin; Vitamin K given * INR 2.7 on 12/06, now 1.8 - plan to start low dose iv heparin, monitor plt count as pt w/ thrombocytopenia, cont. to monitor INR closely #Multiple myeloma * Follows Dr. Fields Oncology * CT abdomen/pelvis showing enlargement of the large heterogeneous hepatic masslike density with new small nodular lesions along the margin of the dominant mass. Malignancy suspected. * Patient and Oncology aware of finding with plan to follow-up OP once back issues resolved DVT Ppx: Code status: DNR/DNI PCP: Dr. Elis Swain (2) Lumbar burst fracture: (3) Spinal stenosis of lumbar region: (4) Lumbar radiculopathy, acute: (5) H/O mechanical aortic valve replacement: (6) Multiple myeloma: Admission and Anticipated Discharge Date Admission Date: December 05, 2024 Subjective Pt seen in follow up Pt recently s/p lumbar spine surgery, has hx of mechan. valve, on anticoagulation w/ coumadin. Presents w/ anemia, on imaging hematoma, vs infection Pt reports she had fever at the rehab, afebrile here Received 2 units of pRBC, vit. K oral, coumadin on hold Ortho-spine (Dr. Valdez) consulted Blood cultx posit. for staph epi, repeat blood cultx pending Currently pt is sitting up in chair in NAD, overall says she is doing ok but her back feels sore Denies any chest pain, shortness of breath, denies abd. pain, n/v Review of Systems Review of Systems: All systems reviewed & are unremarkable except as noted in Subjective Physical Exam Physical Exam: GEN: WD/WN elderly F in NAD. HEENT : NC/AT, EOMI NECK: Supple CV: RRR, no m/r/g. LUNGS: CTAB ABD: Soft, NT/ND, NBS MSK : moves extremities Back: dressings noted over lumbar spine, dry, clean, no edema, ecchymosis noted SKIN: Warm, dry NEURO: awake, alert, answers appropriately, speech fluent, no facial asymmetry, moves extremities Results & Data Results & Data Vital Signs (Past 12 Hours) Vital Signs Temp Pulse Pulse Resp BP Pulse Ox O2 Del Method 12/08/24 12:31 Room Air 12/08/24 12:11 36.6 C 77 18 186/74 H 98 Room Air 12/08/24 07:53 36.6 C 70 18 160/74 H 98 Room Air 12/08/24 07:25 66 12/08/24 02:09 36.4 C L 60 16 170/65 H 96 Room Air Laboratory Results 12/08/24 12/08/24 Range/Units 11:45 05:47 WBC 5.24 (4.8-10.8) K/ul RBC 2.87 L (4.20-5.40) M/uL Hgb 8.3 L (12.0-16.0) g/dl Hct 25.6 L (37.0-47.0) % MCV 89.2 (80.0-100.0) fL MCH 28.9 (25.0-34.0) pg MCHC 32.4 (32.0-36.0) g/dL RDW Std Deviation 53.1 H (36.4-46.3) fL RDW Coeff of Nora 16.1 H (11.5-14.5) % Plt Count 63 L (130-400) K/uL MPV 12.0 (9.4-12.4) fL Absolute Nucleated RBC 0.02 (0.00-0.12) K/uL Nucleated RBC % (auto) 0.4 % PT 18.4 H (9.0-12.0) Seconds INR 1.8 H (0.9-1.1) Sodium 142 (136-145) mmol/L Potassium 4.0 (3.5-5.1) mmol/L Chloride 111 H (98-107) mmol/L Carbon Dioxide 23 (21-32) mmol/L Anion Gap 8 (3-11) BUN 37 H (6-23) mg/dl Creatinine 1.25 H (0.6-1.2) mg/dl Est Cr Clr Drug Dosing 36.4 ml/min eGFR 43.03 BUN/Creatinine Ratio 29.6 H (10-20) Glucose 121 H (70-99(Fasting)) mg/dl Calcium 8.5 L (8.6-10.3) mg/dl Phosphorus 3.5 (2.5-4.9) mg/dl Magnesium 1.6 L (1.7-2.4) mg/dl Medications Administered Current Inpatient Medications Acetaminophen (Acetaminophen 325 Mg Tab) 650 mg PO Q4H PRN PRN Reason: Pain or Fever Stop: 01/04/25 21:54 Last Admin: 12/07/24 20:01 Dose: 650 mg Al Hydrox/Mg Hydrox/Simethicone (Aluminum/Magnesium Susp 30 Ml Udc) 15 ml PO Q4H PRN PRN Reason: Dyspepsia Stop: 01/04/25 21:54 Amlodipine Besylate (Amlodipine Besylate 5 Mg Tab) 5 mg PO BID SHARON Stop: 01/04/25 20:59 Last Admin: 12/08/24 08:25 Dose: 5 mg Atorvastatin Calcium (Atorvastatin 10 Mg Tab) 10 mg PO DAILY SHARON Stop: 01/05/25 08:59 Last Admin: 12/08/24 08:25 Dose: 10 mg Buspirone HCl (Buspirone 5 Mg Tab) 5 mg PO TID SHARON Stop: 01/04/25 20:59 Last Admin: 12/08/24 08:25 Dose: 5 mg Docusate Sodium (Docusate Sodium 100 Mg Cap) 100 mg PO BID PRN PRN Reason: Constipation Stop: 01/04/25 18:24 Last Admin: 12/07/24 20:08 Dose: 100 mg Heparin Sodium/Dextrose (Heparin Iv Adult Wt-Based Low-Dose *No* Initial Bolus Protocol) 1 each IV ONE STA; Protocol Stop: 12/08/24 12:55 Piperacillin Sod/Tazobactam Sod (Zosyn) 4.5 gm in 100 mls @ 25 mls/hr IV Q8H SHARON; Protocol Stop: 01/17/25 01:59 Last Admin: 12/08/24 10:35 Dose: 25 mls/hr Dexamethasone 4 mg/ Syringe 1 mls @ 1 mls/min IV Q8 SHARON Stop: 01/07/25 13:59 Magnesium Sulfate/Dextrose (Magnesium Sulfate / D5w) 1 gm in 100 mls @ 50 mls/hr IV ONE ONE Stop: 12/08/24 13:10 Daptomycin 700 mg/ Syringe 14 mls @ 7 mls/min IV Q24H SHARON; Protocol Stop: 12/22/24 14:59 Heparin Sodium/Dextrose (Heparin 78964 Unit/500 Ml D5w) 25,000 units in 500 mls @ 0.02 mls/hr IV .Q24H SHARON; Protocol Stop: 01/07/25 13:14 Magnesium Hydroxide (Magnesium Hydroxide Susp 30 Ml Udc) 30 ml PO Q12H PRN PRN Reason: Constipation Stop: 01/04/25 21:54 Metoprolol Succinate (Metoprolol Succ 25mg Ext Rel Tab) 12.5 mg PO DAILY [facility] Stop: 01/05/25 08:59 Last Admin: 12/08/24 08:25 Dose: 12.5 mg Ondansetron HCl (Ondansetron Inj 2 Mg/Ml 2 Ml Vial) 4 mg IV Q6H PRN PRN Reason: Nausea Stop: 01/04/25 21:54 Pantoprazole Sodium (Pantoprazole 40 Mg Tab) 40 mg PO BID [facility] Stop: 01/04/25 20:59 Last Admin: 12/08/24 08:26 Dose: 40 mg Polyethylene Glycol (Polyethylene (Miralax) 17 Gm Pack) 17 gm PO DAILY PRN PRN Reason: Constipation Stop: 01/04/25 21:54 Pregabalin (Pregabalin 50 Mg Cap) 50 mg PO BID SHARON Stop: 01/04/25 20:59 Last Admin: 12/08/24 08:26 Dose: 50 mg Warfarin Sodium (Warfarin Sod 6 Mg Tab) 6 mg PO QPM SHARON Stop: 01/07/25 20:59
[2024-12-08] MEDS: MAGNESIUM SULFATE / D5W 1 GM/100 ML BAG IV ONE (13:07)
[2024-12-08] MEDS: HEPARIN 25000 UNIT/500 ML D5W 25,000 UNITS/500 ML BAG IV SCH (15:03)
[2024-12-08] MEDS: DAPTOmycin 700 MG in SYRINGE 0 ML IV SCH (15:03)
[2024-12-08 15:05] LABS: Hematocrit (blood only) 27.3 % (37.0-47.0); Hemoglobin 8.7 g/dl (12.0-16.0); Mean Corpuscular Hemoglobin 28.3 pg (25.0-34.0); Mean Corpuscular Volume 88.9 fL (80.0-100.0); Platelet Count 67 K/uL (130-400); RDW Standard Deviation 52.1 fL (36.4-46.3); Red Blood Count 3.07 M/uL (4.20-5.40); White Blood Count 5.28 K/ul (4.8-10.8)
[2024-12-08 15:28] LABS: ALC (manual) 0.37 K/uL (1.2-3.4); ANC (manual) 4.49 K/uL (1.4-6.5)
[2024-12-08 15:33] LABS: Partial Thromboplastin Time 40 Seconds (21-31)
[2024-12-08] MEDS: dexAMETHasone 4 MG in SYRINGE 0 ML IV SCH (17:11)
[2024-12-08] MEDS: Heparin IV Adult Wt-Based Low-Dose *NO* INITIAL Bolus Protocol IV SCH (17:16)
[2024-12-08 21:36] LABS: ANTI-Xa, UFH(UnfractionatedHep 0.24 IU/ml (0.3-0.7)
[2024-12-09 07:00] LABS: ANTI-Xa, UFH(UnfractionatedHep 0.30 IU/ml (0.3-0.7)
[2024-12-09 07:29] LABS: INR 1.6 (0.9-1.1); Prothrombin Time 16.4 Seconds (9.0-12.0)
[2024-12-09 07:31] LABS: Anion Gap 9.0 (3-11); Calcium 8.7 mg/dl (8.6-10.3); Carbon Dioxide 22.0 mmol/L (21-32); Chloride 109.0 mmol/L (98-107); Hematocrit (blood only) 23.9 % (37.0-47.0); Hemoglobin 7.9 g/dl (12.0-16.0); Magnesium 1.7 mg/dl (1.7-2.4); Mean Corpuscular Hemoglobin 29.3 pg (25.0-34.0); Mean Corpuscular Volume 88.5 fL (80.0-100.0); Platelet Count 55 K/uL (130-400); Potassium 4.4 mmol/L (3.5-5.1); RDW Standard Deviation 51.4 fL (36.4-46.3); Red Blood Count 2.70 M/uL (4.20-5.40); Sodium 140.0 mmol/L (136-145); White Blood Count 3.05 K/ul (4.8-10.8)
[2024-12-09 07:36] LABS: Blood Urea Nitrogen 38.0 mg/dl (6-23); Creatinine Clr Calc Pharmacy 35.4 ml/min; Glucose 231.0 mg/dl (70-99(Fasting))
--- NOTE | 2024-12-09 08:21 | Orthopedic Progress Note ---
Date of Service December 09, 2024 Assessment & Plan (1) Lumbar radiculopathy, acute: Plan This time we will continue to encourage physical therapy ambulate in the room as tolerated transfer to chair as tolerated. Will await final round of blood cultures. Admission and Anticipated Discharge Date Admission Date: December 05, 2024 Subjective Patient states her back pain is controlled. She denies any leg pain at rest. She did tolerate a few steps yesterday and getting to a chair. Physical Exam Physical Exam: On exam the incision appears to be healing appropriately. There is no erythema noted or drainage. No swelling. Nontender to palpation. She is visual strength testing lower extremities. Results & Data Vital Signs (Past 12 Hours) Vital Signs Temp Pulse Pulse Resp BP Pulse Ox O2 Del Method 12/09/24 08:06 36.7 C 67 18 170/80 H 98 Room Air 12/09/24 07:31 52 L 12/09/24 04:16 36.5 C 60 18 152/77 H 96 Room Air 12/08/24 23:38 36.4 C L 57 L 18 151/67 H 95 Room Air 12/08/24 21:54 54 L
--- NOTE | 2024-12-09 12:54 | Hospitalist Progress Note ---
Date of Service December 09, 2024 Assessment & Plan (1) Hematoma: Plan: Patient is a 84 year old F with a past medical history of DM Type II, HLD, spinal stenosis of lumbar region, lumbar radiculopathy s/p laminectomy an L3 burst fracture repair (11/22), Diaz's esophagitis, anemia of chronic dx, H/O mechanical valve aortic valve replacement on warfarin, CKD Stage III, CAD (50- 69% DIANA stenosis. <50% LICA stenosis), Multiple myeloma with liver lesion (follows Dr. Fields) presenting with low back pain with radiation and numbness to LLE. Patient was admitted from 11/22-11/27 and discharged to [facility] for additional management and physical rehab. Ongoing lumbar pain since back surgery that worsened 2 days ago; pain travelling down LLE. Reports having a fever and chills last night, self-resolved and fever free today. Transferred here for additional management. Hematoma s/p laminectomy L2-L4, kyphoplasty of L3, bone grafting to posterior lateral gutters on 11/22/24 #Lumbar burst fracture #Spinal stenosis lumbar region * Admit to [facility] for further management * Lumbar Spine CT showing redemonstration of recent burst type fracture of L3 vertebral body with severe retropulsion. New large intermediate density fluid in the surgical bed extending to the spinal canal, paraspinal muscles and posteriorly to the skin. These may represent hematomas and superinfection is possible. * Ortho Spine notified in ED of CT Spine findings-" Ortho to formally consult tomorrow with possible plan for OR; Ortho suspect hematoma; NPO at [facility] * +fever and chills yesterday, stable wbc-> will give empiric Zosyn and Dapto * Blood culture pending * PT/OT when able * Pain control with acetaminophen; no Dilaudid d/t hx of hallucinations last admission 12/09 No plans for surgery at this point per Ortho service Patient admitted with blood culture positive for Staph epidermidis 1 out of 2 bottles, repeat blood cultures negative Awaiting ID service recommendations regarding possible bacteremia in the setting of recent lumbar spine surgery, lumbar spine hematoma versus fluid collection #Anemia * Hgb 8.4 on 11/27; now Hgb 7.4 * No evidence of active bleeding * 1 unit PRBC transfused today * Recheck H&H this evening post-transfusion * CBC with AM labs 12/09 Hemoglobin around 8 Monitor #H/O mechanical aortic valve replacement * Anticoagulated with Warfarin; INR supratherapeutic 3.6 * Hold Warfarin; Vitamin K given * INR with AM labs INR went down to 1.6 Increase Coumadin 8 mg today Continue heparin bridge #Multiple myeloma * Follows Dr. Fields Oncology * CT abdomen/pelvis showing enlargement of the large heterogeneous hepatic masslike density with new small nodular lesions along the margin of the dominant mass. Malignancy suspected. * Patient and Oncology aware of finding with plan to follow-up OP once back issues resolved DVT Ppx: Code status: DNR/DNI PCP: Dr. Elis Swain Dispo: Admit for further management and care Patient seen in collaboration with Dr. Billingsley. Please see addendum.I spent a total of 70 minutes coordinating, documenting and providing care for this patient excluding time spent in the performance of separately billed services or time spent by another provider/QHP. (2) Lumbar burst fracture: (3) Spinal stenosis of lumbar region: (4) Lumbar radiculopathy, acute: (5) H/O mechanical aortic valve replacement: (6) Multiple myeloma: Admission and Anticipated Discharge Date Admission Date: December 05, 2024 Subjective seen resting in bed, sitting up, watching TV States she is still having some back pain, somewhat better since admission No leg weakness or numbness No fevers or chills no chest pain, shortness of breath, palpitations, dizziness No other new symptoms Review of Systems Review of Systems: all noted and negative except for above Physical Exam Physical Exam: General- oriented x 3, not in distress, speaks in sentences with no effort or accessory muscle use Eyes- anicteric Neck- no JVD Lungs- clear breath sounds bilaterally, no crackles, no wheezing Heart- normal rate, regular rhythm; no murmurs Abdomen- normal bowel sounds, nondistended, soft, no tenderness Extremities- no pretibial edema, no calf tenderness Neuro- alert, oriented x 3; no gross focal neurologic deficits Skin- warm & dry Results & Data Results & Data Vital Signs (Past 12 Hours) Vital Signs Temp Pulse Pulse Resp BP Pulse Ox O2 Del Method 12/09/24 11:44 36.7 C 62 18 178/79 H 96 Room Air 12/09/24 09:43 Room Air 12/09/24 08:06 36.7 C 67 18 170/80 H 98 Room Air 12/09/24 07:31 52 L 12/09/24 04:16 36.5 C 60 18 152/77 H 96 Room Air all noted and reviewed including below
--- NOTE | 2024-12-09 13:44 | Infectious Disease Consult ---
Date of Service December 09, 2024 Telehealth Information I performed this visit using a real-time telehealth connection between my location and the patients location ([facility]). After connecting through interactive tele-video, patient was identified by name and date of and/or wristband check.Patient (or authorized healthcare financial service representative) was informed that this was a telemedicine visit and it was being conducted confidentially over secure lines. My office door was closed and no one else was present in the room with me.Patient (or authorized healthcare financial service representative) provided consent to proceed with the visit, expressed an understanding of privacy and security of the telemedicine visit, and gave permission to have a hospital financial service representative in the room in order to assist with the visit and to conduct portions of the visit, as needed. I informed the patient (or authorized healthcare financial service representative) that I reviewed their record and presented the opportunity for them to ask any questions regarding the visit today. The patient agreed to participate. Assessment & Plan (1) Hematoma: Plan: The fluid collection and her presentation are most consistent with spontaneous hematoma in the setting o buddy thrombocytopenia and elevated INR after surgery. Abscess developing this quickly would seem unlikely. Ruling out superinfection is not easy and would require drainage/sampling, but this may not be worth pursuing. I would favor observation. (2) Positive blood culture: Plan: One out of four bottles with Coag-neg Stap is almost certainly a contaminant. Favor observation off abx as well. Plan 1. D/C daptomycin and pip-tazo History of Present Illness History of Present Illness Ms. Fernandez is an 84yo female with a h/o DM, prior AVR, CKD and multiple myeloma. She suffered a burst fracture with spinal stenosis requiring laminectomy and repair on 11/22/24. Her immediate post-op course was uncomplicated and she was discharged to [facility] on 11/27. She was doing well until two days prior to admission when she noticed her back was hurting more than before. The following day it was even worse and she developed a low-grade fever with sweats. She was brought to the ED at [facility] on 12/05. Imaging of her spine showed a fluid collection ? hematoma and she was started on empiric daptomycin and pip-tazo. Blood cultures turned positive for 1 of 4 bottles with Staph epi only. No asp iration of the fluid has been performed to date with the thought that it is likely hematoma. She reports that overall she is feeling slightly better. She still has back pain, but it is mildly improved. She has had no more fevers. No GI upset, but has had some loose stool. No rash or other complaints. Allergies Allergy/AdvReac Type Severity Reaction Status Date / Time No Known Allergies Allergy Verified 12/05/24 15:28 Home Medications Medication Instructions Recorded Confirmed Type acetaminophen 500 mg capsule 1,000 mg PO Q8H 09/13/24 12/05/24 History amlodipine 5 mg tablet 5 mg PO BID 09/13/24 12/05/24 History pantoprazole 40 mg tablet,delayed 40 mg PO BID #60 tabs 10/07/24 12/05/24 Rx release bisacodyl 10 mg rectal suppository 10 mg ID DAILY PRN Constipation 10/28/24 12/05/24 History (Dulcolax (bisacodyl)) buspirone 5 mg tablet 5 mg PO TID 10/28/24 12/05/24 History ondansetron HCl 4 mg tablet 4 mg PO Q6H PRN n/v 11/19/24 12/05/24 History sodium phosphates 19 gram-7 118 ml ID DAILY PRN constipation 11/19/24 12/05/24 History gram/118 mL enema (Fleet Enema) metoprolol succinate 25 mg 12.5 mg (1/2 x 25 mg) PO DAILY #30 11/27/24 12/05/24 Rx tablet,extended release 24 hr tabs (Toprol XL) Saccharomyces boulardii 250 mg 250 mg PO BID 12/05/24 12/05/24 History capsule (Florastor) atorvastatin 10 mg tablet 10 mg PO DAILY 12/05/24 12/05/24 History docusate sodium 100 mg capsule 100 mg PO BID PRN Constipation 12/05/24 12/05/24 History insulin aspart U-100 100 unit/mL 1 sliding scale dose subcut ACHS 12/05/24 12/05/24 History subcutaneous solution (Novolog U-100 Insulin aspart) loperamide 2 mg tablet (Imodium 2 mg PO Q6H PRN Diarrhea 12/05/24 12/05/24 History A-D) magnesium oxide 400 mg PO BID 12/05/24 12/05/24 History melatonin 3 mg tablet 6 mg PO HS PRN Insomnia 12/05/24 12/05/24 History metformin 500 mg tablet,extended 500 mg PO DAILY 12/05/24 12/05/24 History release 24 hr naloxone 4 mg/actuation nasal spray 4 mg intranasal DIRECTED PRN 12/05/24 12/05/24 History OPOID OVERDOSE polyethylene glycol 3350 17 17 g PO QDL PRN Constipation 12/05/24 12/05/24 History gram/dose oral powder (Miralax) pregabalin 25 mg capsule 50 mg PO BID 12/05/24 12/05/24 History sennosides 8.6 mg-docusate sodium 1 tab-cap PO QDL PRN Constipation 12/05/24 12/05/24 History 50 mg tablet (Senokot-S) sodium hypochlorite 0.125 % 1 applic topical DAILY PRN Itching 12/05/24 12/05/24 History solution (Dakin's Solution) warfarin 6 mg tablet 6 mg PO QPM 12/05/24 12/05/24 History Patient History Medical History jail resident resident of [facility] Anemia requiring transfusions Acute renal failure superimposed on stage 3 chronic kidney disease 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 <50% LICA stenosis. Aortic valve disease s/p AVR (2005) Echo 07/[address] Eric/[place] Reason for Jantoven/warfarin Osteoarthritis History of gallbladder disease No recent issues Liver lesion Follows with Dr. Fields/[facility] Diabetes mellitus, type 2 Multiple myeloma "Smoldering" Follows with Dr. Fields/[facility] Hx infusions, no current tx Hypertension Hyperlipidemia Surgical History History of cardiac cath 2005- no stents 03/2022- no stents, mild non-obstructive CAD History of dilatation and curettage History of colonoscopy History of cataract surgery R/L History of tonsillectomy Aortic valve replaced 10/2005, mechanical valve Family History Mother Diabetes Son Diabetes Social History Smoking Status: Never smoker Second Hand Exposure: No; Do You Dip or Chew Tobacco: No; Hx Alcohol Use: No Hx Substance Use: No Preferred Language: P[place] Communication Ability: Effective County Historian Required: No Beliefs That Will Affect Care: None Current Living Situation: Spouse Current Living Situation Comment: patient lives with who has dementia, she takes care of him. Other Information That Helps Us Care for You: No Feels Safe at Home: Yes Safety Concerns: Feels Safe At This Time Assistive Devices: Walker, Wheelchair and Other Review of Systems Gen- Low grade fever and sweats x 1, now resolved HEENT- No HERRERA, sore throat, neck pain Resp- No SOB or cough CV- No chest pain GI- No N/V, + Loose stool x 2 today - No dysuria MSK- + Back pain EXt- No edema Derm- No rash Neuro- No focal deficit Physical Exam Gen- NAD, cooperative with exam HEENT- NC AT Resp- Normal respirations on RA Skin- No rash Neuro- Alert and oriented x 3 Results & Data Vital Signs (Past 12 Hours) Vital Signs Temp Pulse Pulse Resp BP Pulse Ox O2 Del Method 12/09/24 11:44 36.7 C 62 18 178/79 H 96 Room Air 12/09/24 09:43 Room Air 12/09/24 08:06 36.7 C 67 18 170/80 H 98 Room Air 12/09/24 07:31 52 L 12/09/24 04:16 36.5 C 60 18 152/77 H 96 Room Air Laboratory Results WBC 3.05 Hgb 7.9 Platelets 55 Na 140 Creatinine 1.28 BUN 38 INR 1.6 Blood cultures 12/05/24 with 1 of 4 bottles S epidermidis Blood cultures 12/07/[address] spine from 12/05/24 reviewed by me: IMPRESSION: Redemonstration of recent burst type fracture of L3 vertebral body with severe retropulsion. Interval decompressive laminectomy at this level and kyphoplasty changes. New large intermediate density fluid in the surgical bed extending to the spinal canal, paraspinal muscles and posteriorly to the skin. These may represent hematomas and superinfection is possible. Please correlate with fluid sampling. The fluid extends into the spinal canal as an epidural fluid. Lumbar spine MRI evaluation may be obtained if indicated Recent traumatic fractures of the L2 spinous process and L3 right transverse process. These were not definitively seen in prior lumbar spine CT and may be intervally new.
[2024-12-09 16:38] LABS: Appearance Urine Cloudy (Clear); Bacteria Urine Automated None Seen (None Seen); Cast Urine Automated 0-2 /lpf (0-2); Glucose Urine UA Negative (Negative); RBC Urine Automated >20 /hpf (0-2); WBC Urine Automated 0-5 /hpf (0-5)
[2024-12-09] MEDS: WARFARIN SOD 6 MG TAB PO SCH (21:52)
[2024-12-10 06:20] LABS: ANTI-Xa, UFH(UnfractionatedHep 0.30 IU/ml (0.3-0.7)
[2024-12-10 06:22] LABS: Hematocrit (blood only) 22.3 % (37.0-47.0); Hemoglobin 7.5 g/dl (12.0-16.0); Mean Corpuscular Hemoglobin 29.8 pg (25.0-34.0); Mean Corpuscular Volume 88.5 fL (80.0-100.0); Platelet Count 53 K/uL (130-400); RDW Standard Deviation 51.2 fL (36.4-46.3); Red Blood Count 2.52 M/uL (4.20-5.40); White Blood Count 4.58 K/ul (4.8-10.8)
[2024-12-10 06:32] LABS: INR 1.6 (0.9-1.1); Prothrombin Time 16.3 Seconds (9.0-12.0)
[2024-12-10 06:41] LABS: Creatinine Clr Calc Pharmacy 33.2 ml/min
[2024-12-10 07:00] LABS: Immature Granulocytes # (auto) 0.36 K/uL (0.01-0.20); Immature Granulocytes % (auto) 7.9 %; Tear Drop Cells 1+
[2024-12-10] MEDS: ADVANCED PROBIOTIC 625 MG CAPSULE PO SCH (08:54)
[2024-12-10 11:55] LABS: Hematocrit (blood only) 26.1 % (37.0-47.0); Hemoglobin 8.5 g/dl (12.0-16.0)
--- NOTE | 2024-12-10 15:44 | Hospitalist Progress Note ---
Date of Service December 10, 2024 Assessment & Plan (1) Hematoma: Plan: Patient is a 84 year old F with a past medical history of DM Type II, HLD, spinal stenosis of lumbar region, lumbar radiculopathy s/p laminectomy an L3 burst fracture repair (11/22), Diaz's esophagitis, anemia of chronic dx, H/O mechanical valve aortic valve replacement on warfarin, CKD Stage III, CAD (50- 69% DIANA stenosis. <50% LICA stenosis), Multiple myeloma with liver lesion (follows Dr. Fields) presenting with low back pain with radiation and numbness to LLE. Patient was admitted from 11/22-11/27 and discharged to [facility] for additional management and physical rehab. Ongoing lumbar pain since back surgery that worsened 2 days ago; pain travelling down LLE. Reports having a fever and chills last night, self-resolved and fever free today. Transferred here for additional management. Hematoma s/p laminectomy L2-L4, kyphoplasty of L3, bone grafting to posterior lateral gutters on 11/22/24 #Lumbar burst fracture #Spinal stenosis lumbar region * Admit to [facility] for further management * Lumbar Spine CT showing redemonstration of recent burst type fracture of L3 vertebral body with severe retropulsion. New large intermediate density fluid in the surgical bed extending to the spinal canal, paraspinal muscles and posteriorly to the skin. These may represent hematomas and superinfection is possible. * Ortho Spine notified in ED of CT Spine findings-" Ortho to formally consult tomorrow with possible plan for OR; Ortho suspect hematoma; NPO at [place] * +fever and chills yesterday, stable wbc-> will give empiric Zosyn and Dapto * Blood culture pending * PT/OT when able * Pain control with acetaminophen; no Dilaudid d/t hx of hallucinations last admission 12/09 No plans for surgery at this point per Ortho service Patient admitted with blood culture positive for Staph epidermidis 1 out of 2 bottles, repeat blood cultures negative Awaiting ID service recommendations regarding possible bacteremia in the setting of recent lumbar spine surgery, lumbar spine hematoma versus fluid collection 12/10 DC antibiotics as per ID, Staph epidermidis likely contaminant Back pain improving, on Decadron IV every 8 hours per Ortho Continue PT OT evaluation #Anemia * Hgb 8.4 on 11/27; now Hgb 7.4 * No evidence of active bleeding * 1 unit PRBC transfused today * Recheck H&H this evening post-transfusion * CBC with AM labs 12/10 Hemoglobin remaining stable around 8 Monitor #H/O mechanical aortic valve replacement * Anticoagulated with Warfarin; INR supratherapeutic 3.6 * Hold Warfarin; Vitamin K given * INR with AM labs INR still at 1 point1.8 Coumadin 10 mg today Continue heparin bridge #Multiple myeloma * Follows Dr. Fields Oncology * CT abdomen/pelvis showing enlargement of the large heterogeneous hepatic masslike density with new small nodular lesions along the margin of the dominant mass. Malignancy suspected. * Patient and Oncology aware of finding with plan to follow-up OP once back issues resolved DVT Ppx: Code status: DNR/DNI PCP: Dr. Elis Swain Dispo: Admit for further management and care (2) Lumbar burst fracture: (3) Spinal stenosis of lumbar region: (4) Lumbar radiculopathy, acute: (5) H/O mechanical aortic valve replacement: (6) Multiple myeloma: Admission and Anticipated Discharge Date Admission Date: December 05, 2024 Subjective seen resting in bed, comfortable, sitting up in bed, in good spirits States back pain is more manageable today No leg weakness or numbness Denies melena hematochezia No chest pain, shortness of breath, dizziness, palpitations No other symptoms Review of Systems Review of Systems: all noted and negative except for above Physical Exam Physical Exam: General- oriented x 3, not in distress, speaks in sentences with no effort or accessory muscle use Eyes- anicteric Neck- no JVD Lungs- clear breath sounds bilaterally, no crackles/wheezing Heart- normal rate, regular rhythm; no murmurs Abdomen- normal bowel sounds, nondistended, soft, no tenderness Extremities- no pretibial edema, no calf tenderness Neuro- alert, oriented x 3; no gross focal neurologic deficits Skin- warm & dry Results & Data Results & Data Vital Signs (Past 12 Hours) Vital Signs Temp Pulse Pulse Resp BP BP Pulse Ox 12/10/24 11:43 36.7 C 61 20 174/68 H 99 12/10/24 08:00 12/10/24 07:55 36.7 C 82 20 174/72 H 98 12/10/24 07:50 51 L 12/10/24 04:00 36.4 C L 56 L 18 160/73 H 98 O2 Del Method 12/10/24 11:43 Room Air 12/10/24 08:00 Room Air 12/10/24 07:55 Room Air 12/10/24 07:50 12/10/24 04:00 Room Air all noted and reviewed including below
[2024-12-10] MEDS: WARFARIN SOD 10 MG TAB PO SCH (18:26)
[2024-12-11 06:16] LABS: Hematocrit (blood only) 22.5 % (37.0-47.0); Hemoglobin 7.2 g/dl (12.0-16.0); Mean Corpuscular Hemoglobin 28.7 pg (25.0-34.0); Mean Corpuscular Volume 89.6 fL (80.0-100.0); Platelet Count 48 K/uL (130-400); RDW Standard Deviation 52.4 fL (36.4-46.3); Red Blood Count 2.51 M/uL (4.20-5.40); White Blood Count 6.26 K/ul (4.8-10.8)
[2024-12-11 06:17] LABS: ANTI-Xa, UFH(UnfractionatedHep 0.33 IU/ml (0.3-0.7)
[2024-12-11 06:22] LABS: INR 1.9 (0.9-1.1); Prothrombin Time 19.8 Seconds (9.0-12.0)
[2024-12-11 06:58] LABS: Immature Granulocytes # (auto) 0.53 K/uL (0.01-0.20); Immature Granulocytes % (auto) 8.5 %; Polychromasia 1+; Tear Drop Cells 1+
[2024-12-11 07:08] LABS: Anion Gap 8.0 (3-11); Calcium 8.9 mg/dl (8.6-10.3); Carbon Dioxide 21.0 mmol/L (21-32); Chloride 108.0 mmol/L (98-107); Potassium 4.6 mmol/L (3.5-5.1); Sodium 137.0 mmol/L (136-145)
[2024-12-11 07:14] LABS: Blood Urea Nitrogen 49.0 mg/dl (6-23); Creatinine Clr Calc Pharmacy 33.0 ml/min; Glucose 224.0 mg/dl (70-99(Fasting))
[2024-12-11 12:07] LABS: Hematocrit (blood only) 25.7 % (37.0-47.0); Hemoglobin 8.1 g/dl (12.0-16.0)
[2024-12-11] MEDS: WARFARIN SOD 4 MG TAB PO SCH (16:44)
--- NOTE | 2024-12-11 18:41 | Hospitalist Progress Note ---
Date of Service December 11, 2024 delayed entry date of service noted above Assessment & Plan (1) Hematoma: Plan: Patient is a 84 year old F with a past medical history of DM Type II, HLD, spinal stenosis of lumbar region, lumbar radiculopathy s/p laminectomy an L3 burst fracture repair (11/22), Diaz's esophagitis, anemia of chronic dx, H/O mechanical valve aortic valve replacement on warfarin, CKD Stage III, CAD (50- 69% DIANA stenosis. <50% LICA stenosis), Multiple myeloma with liver lesion (follows Dr. Fields) presenting with low back pain with radiation and numbness to LLE. Patient was admitted from 11/22-11/27 and discharged to [facility] for additional management and physical rehab. Ongoing lumbar pain since back surgery that worsened 2 days ago; pain travelling down LLE. Reports having a fever and chills last night, self-resolved and fever free today. Transferred here for additional management. Hematoma s/p laminectomy L2-L4, kyphoplasty of L3, bone grafting to posterior lateral gutters on 11/22/24 #Lumbar burst fracture #Spinal stenosis lumbar region * Admit to [facility] for further management * Lumbar Spine CT showing redemonstration of recent burst type fracture of L3 vertebral body with severe retropulsion. New large intermediate density fluid in the surgical bed extending to the spinal canal, paraspinal muscles and posteriorly to the skin. These may represent hematomas and superinfection is possible. * Ortho Spine notified in ED of CT Spine findings-" Ortho to formally consult tomorrow with possible plan for OR; Ortho suspect hematoma; NPO at [place] * +fever and chills yesterday, stable wbc-> will give empiric Zosyn and Dapto * Blood culture pending * PT/OT when able * Pain control with acetaminophen; no Dilaudid d/t hx of hallucinations last admission 12/09 No plans for surgery at this point per Ortho service Patient admitted with blood culture positive for Staph epidermidis 1 out of 2 bottles, repeat blood cultures negative Awaiting ID service recommendations regarding possible bacteremia in the setting of recent lumbar spine surgery, lumbar spine hematoma versus fluid collection 12/10 DC antibiotics as per ID, Staph epidermidis likely contaminant Back pain improving, on Decadron IV every 8 hours per Ortho Continue PT OT evaluation 12/11 seen resting in bed, comfortable Stable off antibiotics #Anemia * Hgb 8.4 on 11/27; now Hgb 7.4 * No evidence of active bleeding * 1 unit PRBC transfused today * Recheck H&H this evening post-transfusion * CBC with AM labs 12/11 Hemoglobin remaining stable around 8 Monitor #H/O mechanical aortic valve replacement * Anticoagulated with Warfarin; INR supratherapeutic 3.6 * Hold Warfarin; Vitamin K given * INR with AM labs INR still at1.9 Coumadin 8 mg today Continue heparin bridge #Multiple myeloma * Follows Dr. Fields Oncology * CT abdomen/pelvis showing enlargement of the large heterogeneous hepatic masslike density with new small nodular lesions along the margin of the dominant mass. Malignancy suspected. * Patient and Oncology aware of finding with plan to follow-up OP once back issues resolved DVT Ppx: Code status: DNR/DNI PCP: Dr. Elis Swain Dispo: Admit for further management and care (2) Lumbar burst fracture: (3) Spinal stenosis of lumbar region: (4) Lumbar radiculopathy, acute: (5) H/O mechanical aortic valve replacement: (6) Multiple myeloma: Admission and Anticipated Discharge Date Admission Date: December 05, 2024 Subjective resting in bed, comfortable Back pain improving No fevers or chills No other new symptoms Review of Systems Review of Systems: all noted and negative except for above Physical Exam Physical Exam: General- oriented x 3, not in distress, speaks in sentences with no effort or accessory muscle use Eyes- anicteric Neck- no JVD Lungs- clear breath sounds bilaterally, no rales/wheezes Heart- normal rate, regular rhythm; no murmurs Abdomen- normal bowel sounds, nondistended, soft, nontender Extremities- no pretibial edema, no calf tenderness Neuro- alert, oriented x 3; no gross focal neurologic deficits Skin- warm & dry Results & Data Results & Data Vital Signs (Past 12 Hours) Vital Signs Temp Pulse Pulse Resp BP BP Pulse Ox 12/11/24 16:02 36.6 C 74 18 172/72 H 98 12/11/24 14:08 68 12/11/24 12:02 36.6 C 58 L 18 168/73 H 96 12/11/24 10:17 12/11/24 07:39 55 L 12/11/24 07:34 36.7 C 54 L 18 188/75 H 96 O2 Del Method 12/11/24 16:02 Room Air 12/11/24 14:08 12/11/24 12:02 Room Air 12/11/24 10:17 Room Air 12/11/24 07:39 12/11/24 07:34 Room Air all noted and reviewed including below
[2024-12-12 06:36] LABS: Hematocrit (blood only) 25.8 % (37.0-47.0); Hemoglobin 8.1 g/dl (12.0-16.0); Mean Corpuscular Hemoglobin 28.2 pg (25.0-34.0); Mean Corpuscular Volume 89.9 fL (80.0-100.0); Platelet Count 61 K/uL (130-400); RDW Standard Deviation 52.3 fL (36.4-46.3); Red Blood Count 2.87 M/uL (4.20-5.40); White Blood Count 9.59 K/ul (4.8-10.8)
[2024-12-12 06:49] LABS: ANTI-Xa, UFH(UnfractionatedHep 0.40 IU/ml (0.3-0.7)
[2024-12-12 06:54] LABS: INR 2.8 (0.9-1.1); Prothrombin Time 27.8 Seconds (9.0-12.0)
[2024-12-12 07:32] LABS: ALC (manual) 0.96 K/uL (1.2-3.4); ANC (manual) 7.29 K/uL (1.4-6.5); Polychromasia 1+; Tear Drop Cells 1+
--- NOTE | 2024-12-12 15:09 | Hospitalist Progress Note ---
Date of Service December 12, 2024 Assessment & Plan (1) Hematoma: Plan: Patient is a 84 year old F with a past medical history of DM Type II, HLD, spinal stenosis of lumbar region, lumbar radiculopathy s/p laminectomy an L3 burst fracture repair (11/22), Diaz's esophagitis, anemia of chronic dx, H/O mechanical valve aortic valve replacement on warfarin, CKD Stage III, CAD (50- 69% DIANA stenosis. <50% LICA stenosis), Multiple myeloma with liver lesion (follows Dr. Fields) presenting with low back pain with radiation and numbness to LLE. Patient was admitted from 11/22-11/27 and discharged to [facility] for additional management and physical rehab. Ongoing lumbar pain since back surgery that worsened 2 days ago; pain travelling down LLE. Reports having a fever and chills last night, self-resolved and fever free today. Transferred here for additional management. Hematoma s/p laminectomy L2-L4, kyphoplasty of L3, bone grafting to posterior lateral gutters on 11/22/24 #Lumbar burst fracture #Spinal stenosis lumbar region * Admit to [facility] for further management * Lumbar Spine CT showing redemonstration of recent burst type fracture of L3 vertebral body with severe retropulsion. New large intermediate density fluid in the surgical bed extending to the spinal canal, paraspinal muscles and posteriorly to the skin. These may represent hematomas and superinfection is possible. * Ortho Spine notified in ED of CT Spine findings-" Ortho to formally consult tomorrow with possible plan for OR; Ortho suspect hematoma; NPO at [place] * +fever and chills yesterday, stable wbc-> will give empiric Zosyn and Dapto * Blood culture pending * PT/OT when able * Pain control with acetaminophen; no Dilaudid d/t hx of hallucinations last admission 12/09 No plans for surgery at this point per Ortho service Patient admitted with blood culture positive for Staph epidermidis 1 out of 2 bottles, repeat blood cultures negative Awaiting ID service recommendations regarding possible bacteremia in the setting of recent lumbar spine surgery, lumbar spine hematoma versus fluid collection 12/10 DC antibiotics as per ID, Staph epidermidis likely contaminant Back pain improving, on Decadron IV every 8 hours per Ortho Continue PT OT evaluation 12/11 seen resting in bed, comfortable Stable off antibiotics 12/12 pain improving overall taper Decadron to q12h #Anemia * Hgb 8.4 on 11/27; now Hgb 7.4 * No evidence of active bleeding * 1 unit PRBC transfused today * Recheck H&H this evening post-transfusion * CBC with AM labs 12/12 Hemoglobin remaining stable around 8 Monitor #H/O mechanical aortic valve replacement * Anticoagulated with Warfarin; INR supratherapeutic 3.6 * Hold Warfarin; Vitamin K given * INR with AM labs INR still at 2.8 Coumadin 6 mg today #Multiple myeloma * Follows Dr. Fields Oncology * CT abdomen/pelvis showing enlargement of the large heterogeneous hepatic masslike density with new small nodular lesions along the margin of the dominant mass. Malignancy suspected. * Patient and Oncology aware of finding with plan to follow-up OP once back issues resolved DVT Ppx: Code status: DNR/DNI PCP: Dr. Elis Swain Dispo:med surg tele (2) Lumbar burst fracture: (3) Spinal stenosis of lumbar region: (4) Lumbar radiculopathy, acute: (5) H/O mechanical aortic valve replacement: (6) Multiple myeloma: Admission and Anticipated Discharge Date Admission Date: December 05, 2024 Subjective Seen resting in bed, comfortable, not in distress States she feels better overall Back pain is much better, currently only 1 out of 10 No other new symptoms Review of Systems Review of Systems: all noted and negative except for above Physical Exam Physical Exam: General- oriented x 3, not in distress, speaks in sentences with no effort or accessory muscle use Eyes- anicteric Neck- no JVD Lungs- clear breath sounds bilaterally no crackles, wheezing Heart- normal rate, regular rhythm; no murmurs Abdomen- normal bowel sounds, nondistended, soft, no tenderness Extremities- no pretibial edema, no calf tenderness Neuro- alert, oriented x 3; no gross focal neurologic deficits Skin- warm & dry Results & Data Results & Data Vital Signs (Past 12 Hours) Vital Signs Temp Pulse Pulse Resp BP Pulse Ox O2 Del Method 12/12/24 14:27 60 12/12/24 11:44 36.5 C 56 L 18 162/66 H 96 Room Air 12/12/24 08:05 36.4 C L 54 L 20 166/78 H 98 Room Air 12/12/24 07:45 Room Air 12/12/24 07:36 47 L 12/12/24 04:12 35.9 C L 54 L 16 173/71 H 98 Room Air all noted and reviewed including below
[2024-12-12] MEDS: WARFARIN SOD 4 MG TAB PO SCH (16:16)
[2024-12-12] MEDS: dexAMETHasone 4 MG in SYRINGE 0 ML IV SCH (16:17)
[2024-12-12 19:51] VITALS: RESP 16
[2024-12-13 08:31] LABS: Creatinine Clr Calc Pharmacy 31.8 ml/min
[2024-12-13 08:40] LABS: INR 3.3 (0.9-1.1); Prothrombin Time 32.1 Seconds (9.0-12.0)
--- NOTE | 2024-12-13 09:20 | Hospitalist Progress Note ---
Date of Service December 13, 2024 Assessment & Plan (1) Hematoma: Plan: Patient is a 84 year old F with a past medical history of DM Type II, HLD, spinal stenosis of lumbar region, lumbar radiculopathy s/p laminectomy an L3 burst fracture repair (11/22), Diaz's esophagitis, anemia of chronic dx, H/O mechanical valve aortic valve replacement on warfarin, CKD Stage III, CAD (50- 69% DIANA stenosis. <50% LICA stenosis), Multiple myeloma with liver lesion (follows Dr. Fields) presenting with low back pain with radiation and numbness to LLE. Patient was admitted from 11/22-11/27 and discharged to [facility] for additional management and physical rehab. Ongoing lumbar pain since back surgery that worsened 2 days ago; pain travelling down LLE. Reports having a fever and chills last night, self-resolved and fever free today. Transferred here for additional management. Hematoma s/p laminectomy L2-L4, kyphoplasty of L3, bone grafting to posterior lateral gutters on 11/22/24 #Lumbar burst fracture #Spinal stenosis lumbar region * Admit to [facility] for further management * Lumbar Spine CT showing redemonstration of recent burst type fracture of L3 vertebral body with severe retropulsion. New large intermediate density fluid in the surgical bed extending to the spinal canal, paraspinal muscles and posteriorly to the skin. These may represent hematomas and superinfection is possible. * Ortho Spine notified in ED of CT Spine findings-" Ortho to formally consult tomorrow with possible plan for OR; Ortho suspect hematoma; NPO at [place] * +fever and chills yesterday, stable wbc-> will give empiric Zosyn and Dapto * Blood culture pending * PT/OT when able * Pain control with acetaminophen; no Dilaudid d/t hx of hallucinations last admission 12/09 No plans for surgery at this point per Ortho service Patient admitted with blood culture positive for Staph epidermidis 1 out of 2 bottles, repeat blood cultures negative Awaiting ID service recommendations regarding possible bacteremia in the setting of recent lumbar spine surgery, lumbar spine hematoma versus fluid collection 12/10 DC antibiotics as per ID, Staph epidermidis likely contaminant Back pain improving, on Decadron IV every 8 hours per Ortho Continue PT OT evaluation 12/11 seen resting in bed, comfortable Stable off antibiotics 12/12 pain improving overall taper Decadron to q12h 12/13 pain is much better Transition from IV Decadron to Decadron p.o. taper monitor blood glucose closely #Anemia * Hgb 8.4 on 11/27; now Hgb 7.4 * No evidence of active bleeding * 1 unit PRBC transfused today * Recheck H&H this evening post-transfusion * CBC with AM labs 12/13 Hemoglobin remaining stable around 8 Monitor #H/O mechanical aortic valve replacement * Anticoagulated with Warfarin; INR supratherapeutic 3.6 * Hold Warfarin; Vitamin K given * INR with AM labs INR 3.3 continue Coumadin INR daily closely #CKD 3 crea increased to 1.4 repeat BMP in 1-2 days please continue to encourage water intake Monitor because patient is on metformin as well #Multiple myeloma * Follows Dr. Fields Oncology * CT abdomen/pelvis showing enlargement of the large heterogeneous hepatic masslike density with new small nodular lesions along the margin of the dominant mass. Malignancy suspected. * Patient and Oncology aware of finding with plan to follow-up OP once back issues resolved * DVT Ppx: Code status: DNR/DNI PCP: Dr. Elis Swain Dispo:[facility] (2) Lumbar burst fracture: (3) Spinal stenosis of lumbar region: (4) Lumbar radiculopathy, acute: (5) H/O mechanical aortic valve replacement: (6) Multiple myeloma: Admission and Anticipated Discharge Date Admission Date: December 05, 2024 Subjective seen resting in Bed, comfortable States she feels fine overall Back pain continues to improve No leg weakness or numbness No shortness of breath, chest pain, potation's, dizziness No other new symptoms States she is ready for discharge today Review of Systems Review of Systems: all noted and negative except for above Physical Exam Physical Exam: General- oriented x 3, not in distress, speaks in sentences with no effort or accessory muscle use Eyes- anicteric Neck- no JVD Lungs- clear breath sounds bilaterally, no rales/wheezes Heart- normal rate, regular rhythm; no murmurs Abdomen- normal bowel sounds, nondistended, soft, nontender Extremities- no pretibial edema, no calf tenderness Neuro- alert, oriented x 3; no gross focal neurologic deficits Skin- warm & dry Results & Data Results & Data Vital Signs (Past 12 Hours) Vital Signs Temp Pulse Pulse Resp BP BP Pulse Ox 12/13/24 08:43 36.4 C L 57 L 16 198/62 H 97 12/13/24 07:11 88 12/13/24 03:08 36.5 C 53 L 16 167/59 H 98 12/12/24 22:52 36.4 C L 56 L 16 160/69 H 96 12/12/24 21:46 55 L 12/12/24 21:22 69 159/80 H O2 Del Method 12/13/24 08:43 Room Air 12/13/24 07:11 12/13/24 03:08 Room Air 12/12/24 22:52 Room Air 12/12/24 21:46 12/12/24 21:22 all noted and reviewed including below
--- NOTE | 2024-12-13 09:26 | Discharge Summary ---
Discharge Summary Date of Service December 13, 2024 Principal Dx & Hospital Course #1 = Principal Diagnosis (1) Hematoma: Patient is a 84 year old F with a past medical history of DM Type II, HLD, spinal stenosis of lumbar region, lumbar radiculopathy s/p laminectomy an L3 burst fracture repair (11/22), Diaz's esophagitis, anemia of chronic dx, H/O mechanical valve aortic valve replacement on warfarin, CKD Stage III, CAD (50- 69% DIANA stenosis. <50% LICA stenosis), Multiple myeloma with liver lesion (follows Dr. Fields) presenting with low back pain with radiation and numbness to LLE. Patient was admitted from 11/22-11/27 and discharged to [facility] for additional management and physical rehab. Ongoing lumbar pain since back surgery that worsened 2 days ago; pain travelling down LLE. Reports having a fever and chills last night, self-resolved and fever free today. Transferred here for additional management. Hematoma s/p laminectomy L2-L4, kyphoplasty of L3, bone grafting to posterior lateral gutters on 11/22/24 #Lumbar burst fracture #Spinal stenosis lumbar region * Admit to [facility] for further management * Lumbar Spine CT showing redemonstration of recent burst type fracture of L3 vertebral body with severe retropulsion. New large intermediate density fluid in the surgical bed extending to the spinal canal, paraspinal muscles and posteriorly to the skin. These may represent hematomas and superinfection is possible. * Ortho Spine notified in ED of CT Spine findings-" Ortho to formally consult tomorrow with possible plan for OR; Ortho suspect hematoma; NPO at DC * +fever and chills yesterday, stable wbc-> will give empiric Zosyn and Dapto * Blood culture pending * PT/OT when able * Pain control with acetaminophen; no Dilaudid d/t hx of hallucinations last admission 12/09 No plans for surgery at this point per Ortho service Patient admitted with blood culture positive for Staph epidermidis 1 out of 2 bottles, repeat blood cultures negative Awaiting ID service recommendations regarding possible bacteremia in the setting of recent lumbar spine surgery, lumbar spine hematoma versus fluid collection 12/10 DC antibiotics as per ID, Staph epidermidis likely contaminant Back pain improving, on Decadron IV every 8 hours per Ortho Continue PT OT evaluation 12/11 seen resting in bed, comfortable Stable off antibiotics 12/12 pain improving overall taper Decadron to q12h 12/13 pain is much better Transition from IV Decadron to Decadron p.o. taper monitor blood glucose closely ff up with Dr. Valdez in 1 week #Anemia * Hgb 8.4 on 11/27; now Hgb 7.4 * No evidence of active bleeding * 1 unit PRBC transfused today * Recheck H&H this evening post-transfusion * CBC with AM labs 12/13 Hemoglobin remaining stable around 8 Monitor #H/O mechanical aortic valve replacement * Anticoagulated with Warfarin; INR supratherapeutic 3.6 * Hold Warfarin; Vitamin K given * INR with AM labs INR 3.3 continue Coumadin INR daily closely #CKD 3 crea increased to 1.4 repeat BMP in 1-2 days please continue to encourage water intake Monitor because patient is on metformin as well #Multiple myeloma * Follows Dr. Fields Oncology * CT abdomen/pelvis showing enlargement of the large heterogeneous hepatic masslike density with new small nodular lesions along the margin of the dominant mass. Malignancy suspected. * Patient and Oncology aware of finding with plan to follow-up OP once back issues resolved * DVT Ppx: Code status: DNR/DNI PCP: Dr. Elis Swain Dispo:[facility] (2) Lumbar burst fracture: (3) Spinal stenosis of lumbar region: (4) Lumbar radiculopathy, acute: (5) H/O mechanical aortic valve replacement: (6) Multiple myeloma: Notes For Next Care Provider please repeat basic metabolic profile in 1 to 2 days, monitor creatinine- increased from 1.2-1.4 monitor renal function while on metformin monitor INR closely Medication Changes From Visit per medical reconciliation Admission HPI Per Admitting Provider Patient is a 84 year old F with a past medical history of DM Type II, HLD, spinal stenosis of lumbar region, lumbar radiculopathy s/p laminectomy an L3 burst fracture repair (11/22), Diaz's esophagitis, anemia of chronic dx, H/O mechanical valve aortic valve replacement on warfarin, CKD Stage III, CAD (50- 69% DIANA stenosis. <50% LICA stenosis), Multiple myeloma with liver lesion (follows Dr. Fields) presenting with low back pain with radiation and numbness to LLE. Patient was admitted from 11/22-11/27 and discharged to [facility] for additional management and physical rehab. Ongoing lumbar pain since back surgery that worsened 2 days ago; pain travelling down LLE. Reports having a fever and chills last night, self-resolved and fever free today. Transferred here for additional management. Denies chills, weight loss, headache, cognitive changes, vision/hearing changes, chest pain, SOB, swelling, difficulty breathing, urinary concerns, N/V/D, joint swelling/pain, skin rashes, lesions, bleeding, bruising. In the emergency department, patient was hemodynamically stable with no apparent signs of infection, white count normal, no signs of sepsis. Found to have Hgb 7.4 without signs of active bleeding. Lumbar Spine CT showing New large intermediate density fluid in the surgical bed extending to the spinal canal, paraspinal muscles and posteriorly to the skin, representing hematomas vs superinfection. Ortho Spine contacted in the ED, reporting suspected hematoma. Patient noted to have metal in body, unable to have MRI. CT abdomen/pelvis showed Interval enlargement of the large heterogeneous hepatic masslike density with new small nodular lesions along the margin of the dominant mass. Malignancy suspected. Patient known to Dr. Fields , Oncology, and aware of finding with plan to follow up outpatient after issues with spine resolved. History obtained primarily from the patient and via hospitalization record. Admission Exam Per Admitting Provider VITALS: Reviewed. WEIGHT/BMI reviewed. GEN: Healthy appearing, well-developed, NAD. PSYCH: Good Judgment. AOx4. Normal memory, mood, and affect. HEENT -Head: NC/AT; -Eyes: PERRL, EOMI. No discharge or redness; -Ears: External ears are normal. -Nose: Normal nares. -Mouth and throat: MMM. Normal gums, mucosa, palate,. Good dentition. NECK: Supple, with no masses. CV: RRR, no m/r/g. LUNGS: CTAB, no w/r/c. ABD: Soft, NT/ND, NBS, no masses or organomegaly. : N/A SKIN: Warm, well perfused. Dressing to lower back intact and clean. MSK: No deformities, Strength 3/5 LLE. EXT: No clubbing, cyanosis, or edema. NEURO: CN II-XII grossly intact. No focal deficits. Discharge Exam General- oriented x 3, not in distress, speaks in sentences with no effort or accessory muscle use Eyes- anicteric Neck- no JVD Lungs- clear breath sounds bilaterally, no rales/wheezes Heart- normal rate, regular rhythm; no murmurs Abdomen- normal bowel sounds, nondistended, soft, nontender Extremities- no pretibial edema, no calf tenderness Neuro- alert, oriented x 3; no gross focal neurologic deficits Skin- warm & dry Updated Medication List Medication Instructions Recorded Confirmed Type acetaminophen 500 mg capsule 1,000 mg PO Q8H 09/13/24 12/05/24 History amlodipine 5 mg tablet 5 mg PO BID 09/13/24 12/05/24 History pantoprazole 40 mg tablet,delayed 40 mg PO BID #60 tabs 10/07/24 12/05/24 Rx release bisacodyl 10 mg rectal suppository 10 mg MI DAILY PRN Constipation 10/28/24 12/05/24 History (Dulcolax (bisacodyl)) buspirone 5 mg tablet 5 mg PO TID 10/28/24 12/05/24 History ondansetron HCl 4 mg tablet 4 mg PO Q6H PRN n/v 11/19/24 12/05/24 History sodium phosphates 19 gram-7 118 ml MI DAILY PRN constipation 11/19/24 12/05/24 History gram/118 mL enema (Fleet Enema) metoprolol succinate 25 mg 12.5 mg (1/2 x 25 mg) PO DAILY #30 11/27/24 12/05/24 Rx tablet,extended release 24 hr tabs (Toprol XL) Saccharomyces boulardii 250 mg 250 mg PO BID 12/05/24 12/05/24 History capsule (Florastor) atorvastatin 10 mg tablet 10 mg PO DAILY 12/05/24 12/05/24 History docusate sodium 100 mg capsule 100 mg PO BID PRN Constipation 12/05/24 12/05/24 History insulin aspart U-100 100 unit/mL 1 sliding scale dose subcut ACHS 12/05/24 12/05/24 History subcutaneous solution (Novolog U-100 Insulin aspart) loperamide 2 mg tablet (Imodium 2 mg PO Q6H PRN Diarrhea 12/05/24 12/05/24 History A-D) magnesium oxide 400 mg PO BID 12/05/24 12/05/24 History melatonin 3 mg tablet 6 mg PO HS PRN Insomnia 12/05/24 12/05/24 History metformin 500 mg tablet,extended 500 mg PO DAILY 12/05/24 12/05/24 History release 24 hr naloxone 4 mg/actuation nasal spray 4 mg intranasal DIRECTED PRN 12/05/24 0 12/05/24 History OPOID OVERDOSE polyethylene glycol 3350 17 17 g PO QDL PRN Constipation 12/05/24 12/05/24 History gram/dose oral powder (Miralax) pregabalin 25 mg capsule 50 mg PO BID 12/05/24 12/05/24 History sennosides 8.6 mg-docusate sodium 1 tab-cap PO QDL PRN Constipation 12/05/24 12/05/24 History 50 mg tablet (Senokot-S) sodium hypochlorite 0.125 % 1 applic topical DAILY PRN Itching 12/05/24 12/05/24 History solution (Dakin's Solution) warfarin 6 mg tablet 6 mg PO QPM 12/05/24 12/05/24 History dexamethasone 4 mg tablet 4 mg PO UD #5 tabs 12/13/24 Rx Hospital Stay Data Consultations 12/05/24 17:27 ED Decision to Admit Stat 12/05/24 18:22 Consult Orthopedic Surgery Routine 12/08/24 13:02 Consult Infectious Diseases Routine Diagnostic Imagining Performed Laboratory Results WBC 9.59 K/ul (4.8-10.8) 12/12/24 06:06 RBC 2.87 M/uL (4.20-5.40) L 12/12/24 06:06 Hgb 8.1 g/dl (12.0-16.0) L 12/12/24 06:06 POC Hgb 6.1 g/dl (12.0-16.0) L* 12/05/24 15:03 Hct 25.8 % (37.0-47.0) L 12/12/24 06:06 POC Hct 18 % (37-47) L* 12/05/24 15:03 MCV 89.9 fL (80.0-100.0) 12/12/24 06:06 MCH 28.2 pg (25.0-34.0) 12/12/24 06:06 MCHC 31.4 g/dL (32.0-36.0) L 12/12/24 06:06 RDW Std Deviation 52.3 fL (36.4-46.3) H 12/12/24 06:06 RDW Coeff of Nora 16.1 % (11.5-14.5) H 12/12/24 06:06 Plt Count 61 K/uL (130-400) L 12/12/24 06:06 MPV 12.3 fL (9.4-12.4) 12/12/24 06:06 Immature Gran % (Auto) 8.5 % 12/11/24 05:36 Neut % (Auto) 63.9 % 12/11/24 05:36 Lymph % (Auto) 15.7 % 12/11/24 05:36 [place] % (Auto) 11.7 % 12/11/24 05:36 Eos % (Auto) 0.0 % 12/11/24 05:36 Baso % (Auto) 0.2 % 12/11/24 05:36 Neut # (Auto) 4.01 K/uL (1.40-6.50) 12/11/24 05:36 Lymph # (Auto) 0.98 K/uL (1.20-3.40) L 12/11/24 05:36 [place] # (Auto) 0.73 K/uL (0.11-0.59) H 12/11/24 05:36 Eos # (Auto) 0.00 K/uL (0.00-0.50) 12/11/24 05:36 Baso # (Auto) 0.01 K/uL (0.00-0.20) 12/11/24 05:36 Immature Gran # (Auto) 0.53 K/uL (0.01-0.20) H 12/11/24 05:36 Absolute Nucleated RBC 0.05 K/uL (0.00-0.12) 12/12/24 06:06 Nucleated RBC % (auto) 0.5 % 12/12/24 06:06 Neutrophils % (Manual) 76 % 12/12/24 06:06 Lymphocytes % (Manual) 10 % 12/12/24 06:06 Monocytes % (Manual) 9 % 12/12/24 06:06 Metamyelocytes % (Man) 2 % 12/12/24 06:06 Myelocytes % (Man) 3 % 12/12/24 06:06 Neutrophils # (Manual) 7.29 K/uL (1.40-6.50) H 12/12/24 06:06 Total Absolute Neuts 7.29 K/uL (1.4-6.5) H 12/12/24 06:06 Lymphocytes # (Manual) 0.96 K/uL (1.2-3.4) L 12/12/24 06:06 Total Abs Lymphocytes 0.96 K/uL (1.2-3.4) L 12/12/24 06:06 Monocytes # (Manual) 0.86 K/uL (0.11-0.59) H 12/12/24 06:06 Metamyelocytes # (Man) 0.19 K/uL (0-0) H 12/12/24 06:06 Myelocytes # (Manual) 0.29 K/uL (0-0) H 12/12/24 06:06 RBC Morphology Unremarkable 12/05/24 14:45 Polychromasia 1+ 12/12/24 06:06 Tear Drop Cells 1+ 12/12/24 06:06 ESR 41 mm/hr (0-30) H 12/08/24 14:33 PT 32.1 Seconds (9.0-12.0) H 12/13/24 07:57 INR 3.3 (0.9-1.1) H 12/13/24 07:57 APTT 40 Seconds (21-31) H 12/08/24 14:33 PTT Ratio 1.5 12/08/24 14:33 Heparin Anti-Xa, Unfract 0.40 IU/ml (0.3-0.7) 12/12/24 06:06 POC Sodium 143 mmol/L (135-144) 12/05/24 15:03 Sodium 137 mmol/L (136-145) 12/11/24 05:36 POC Potassium 4.0 mmol/L (3.3-5.0) 12/05/24 15:03 Potassium 4.6 mmol/L (3.5-5.1) 12/11/24 05:36 POC Chloride 110 mmol/L (101-112) 12/05/24 15:03 Chloride 108 mmol/L (98-107) H 12/11/24 05:36 Carbon Dioxide 21 mmol/L (21-32) 12/11/24 05:36 POC Total CO2 20 mmol/L (24-31) L 12/05/24 15:03 Anion Gap 8 (3-11) 12/11/24 05:36 POC Anion Gap 18.0 mmol/L (16-25) 12/05/24 15:03 POC BUN 41 mg/dl (7-18) H 12/05/24 15:03 BUN 49 mg/dl (6-23) H 12/11/24 05:36 Creatinine 1.45 mg/dl (0.6-1.2) H 12/13/24 07:46 POC Creatinine 1.3 mg/dl (0.6-1.3) 12/05/24 15:03 Est Cr Clr Drug Dosing 31.8 ml/min 12/13/24 07:46 eGFR 36.01 12/13/24 07:46 BUN/Creatinine Ratio 35.5 (10-20) H 12/11/24 05:36 Glucose 224 mg/dl (70-99(Fasting)) H 12/11/24 05:36 POC Glucose (other) 159 mg/dl (70-99) H 12/05/24 15:03 Calcium 8.9 mg/dl (8.6-10.3) 12/11/24 05:36 POC Ioniz Calcium Lianna 1.17 mmol/l (1.12-1.32) 12/05/24 15:03 Phosphorus 3.6 mg/dl (2.5-4.9) 12/09/24 07:08 Magnesium 1.7 mg/dl (1.7-2.4) 12/09/24 07:08 Total Bilirubin 0.5 mg/dl (0.2-1.0) 12/05/24 14:45 Direct Bilirubin 0.1 mg/dl (0-0.2) 12/05/24 14:45 AST 19 U/L (13-39) 12/05/24 14:45 ALT 13 U/L (7-52) 12/05/24 14:45 Alkaline Phosphatase 411 U/L (34-104) H 12/05/24 14:45 Total Creatine Kinase 13 U/L (26-192) L 12/07/24 05:46 C-Reactive Protein 2.17 mg/dl (0-0.5) H 12/08/24 14:38 Total Protein 6.5 gm/dl (6.0-8.3) 12/05/24 14:45 Albumin 2.9 gm/dl (3.4-5.0) L 12/05/24 14:45 Lipase 31 U/L (11-82) 12/05/24 14:45 Urine Color Yellow 12/09/24 15:58 Urine Appearance Cloudy (Clear) A 12/09/24 15:58 Urine pH 5.0 (4.5-7.5) 12/09/24 15:58 Ur Specific [place] 1.029 (1.000-1.030) 12/09/24 15:58 Urine Protein 2+ (Negative) H 12/09/24 15:58 Urine Glucose (UA) Negative (Negative) 12/09/24 15:58 Urine Ketones Trace (Negative) H 12/09/24 15:58 Urine Blood 1+ (Negative) H 12/09/24 15:58 Urine Nitrite Negative (Negative) 12/09/24 15:58 Urine Bilirubin Negative (Negative) 12/09/24 15:58 Urine Urobilinogen Negative (Negative) 12/09/24 15:58 Ur Leukocyte Esterase Negative (Negative) 12/09/24 15:58 Urine WBC (Auto) 0-5 /hpf (0-5) 12/09/24 15:58 Urine RBC (Auto) >20 /hpf (0-2) H 12/09/24 15:58 U Hyaline Cast (Auto) 0-2 /lpf (0-2) 12/09/24 15:58 U Epithel Cells (Auto) 3-5 /hpf (0-2) H 12/09/24 15:58 Urine Bacteria (Auto) None Seen (None Seen) 12/09/24 15:58 Uric Acid Crystals Present (None Prsent) A 12/09/24 15:58 Urine Comment 12/09/24 15:58 SARS-CoV-2, RNA, NAAT NEGATIVE (NEGATIVE) 12/05/24 18:02 Staphylococcus sp PCR DETECTED (NotDetected) A 12/05/24 19:05 mecA/C-Methicil Resis Gene DETECTED (NotDetected) A 12/05/24 19:05 Staph epidermidis (PCR) DETECTED (NotDetected) A 12/05/24 19:05 Bld Cult ID Panel PCR See PCR Comment (NotDetected) 12/05/24 19:05 Blood Type O Negative 12/05/24 14:48 Antibody Screen NEGATIVE 12/05/24 14:48 Crossmatch See Detail 12/05/24 14:[address] 12/05/24 15:00 CT LUMBAR SPINE WITH CONTRAST: HISTORY: PAIN TECHNIQUE: Enhanced CT examination of the lumbar spine is performed. Coronal and sagittal reformats were created. IV CONTRAST: 100 mL of OMNIPAQUE 300 COMPARISON: Lumbar spine CT October 03, 2024 FINDINGS: LUMBAR SPINE: Redemonstration of recent burst type fracture of L3 vertebral body with severe retropulsion.Recent traumatic fractures of the L2 spinous process and L3 right transverse process Interval decompressive laminectomy at this level and kyphoplasty changes. There is a new large intermediate density fluid within the laminectomy bed extending into the paraspinal muscles, the spinal canal and posteriorly to the skin. IMPRESSION: Redemonstration of recent burst type fracture of L3 vertebral body with severe retropulsion. Interval decompressive laminectomy at this level and kyphoplasty changes. New large intermediate density fluid in the surgical bed extending to the spinal canal, paraspinal muscles and posteriorly to the skin. These may represent hematomas and superinfection is possible. Please correlate with fluid sampling. The fluid extends into the spinal canal as an epidural fluid. Lumbar spine MRI evaluation may be obtained if indicated Recent traumatic fractures of the L2 spinous process and L3 right transverse process. These were not definitively seen in prior lumbar spine CT and may be intervally new. Electronically signed by Rodrigue Call 12-05-2024 4:37 PM Abdomen/Pelvis CT 12/05/24 15:01 CT ABDOMEN and PELVIS with INTRAVENOUS CONTRAST HISTORY: Abdominal pain TECHNIQUE: CT abdomen and pelvis with contrast. IV CONTRAST: 100 mL of OMNIPAQUE 300 ENTERIC CONTRAST: Not Given COMPARISON: CT abdomen pelvis October 02, 2024. FINDINGS: LOWER CHEST: Small pleural fluid, increased from previous. Cardiomegaly with dense valvular calcifications. LIVER: The large hepatic mass appears to have grown in size in the interim. There are small new nodular extensions/lesions along the margin of the dominant mass (for example as seen in series 300, image 22). GALLBLADDER/BILIARY: Surgically absent gallbladder. No abnormal biliary dilatation. There is a small quantity of pneumobilia. SPLEEN: Mild splenomegaly, unchanged. PANCREAS: Unremarkable. ADRENALS: Unremarkable. KIDNEYS: Atrophic kidneys with cortical cysts. No stones or hydronephrosis identified. PERITONEUM/RETROPERITONEUM. Small presacral fluid. No lymphadenopathy by size criteria. No aortic aneurysm. GASTROINTESTINAL: No obstruction. Colonic diverticulosis without evidence of diverticulitis. Normal appendix. REPRODUCTIVE: No suspicious pelvic masses identified URINARY BLADDER: Unremarkable BONES: Please refer to separately dictated lumbar spine CT report. IMPRESSION: Interval enlargement of the large heterogeneous hepatic masslike density with new small nodular lesions along the margin of the dominant mass. Given growth, malignancy would be suspected. Complex fluid collection not excluded. Open please correlate with clinical workup up to this point and if indicated MRI evaluation may be obtained when clinically appropriate. New small pneumobilia. Small pleural fluids. Electronically signed by Rodrigue Call 12-05-2024 4:37 PM Discharge Instructions Given to Patient (Per Discharging Provider) Please refer to accompanying hospital discharge summary for full details. ACTIVITY RECOMMENDATIONS: SELF CARE INSTRUCTIONS AFTER THORACIC/LUMBAR FUSIONS 1. You may walk to your tolerance. It is good exercise for your legs and back. Expect some back and intermittent leg aches and pains. 2. You may perform "counter-top" level activities (make a sandwich, zelalem with a project, etc.). 3. No bending or lifting of more than 10 pounds or back twisting of any nature (roll like a log when turning in bed). 4. You may ride in a car for 20-30 minutes at a time. No driving until after your first visit with your doctor. 5. Frequent changes of position and restricting sitting to 30 minutes at a time will help limit the amount of back spasms and stiffness you may experience. 6. You may discontinue the use of ambulatory aids (cane, crutches, etc.) once your strength and confidence allow. 7. You may instruction librarian the shower and let water strike your incision when you arrive home at least once daily. Do not take a tub bath, sit in a hot tub or go into a swimming pool until after your first recheck in the office. 8. You may resume previous diet. SPECIAL CARE INSTRUCTIONS: VERY IMPORTANT TO READ AND REVIEW A. Your surgical incision has been closed with a cosmetic suture under the skin that will dissolve in about 6 weeks. In 14 days, you can use a pair of clean scissors and cut the suture that is left outside of the skin at the ends of your incision. 1. The small skin tapes can be removed 7 days after surgery if they have not fallen off by that point. 2. You may keep the wound open to air as much as possible to promote healing after post-op day number 5 unless told otherwise by your doctor. 3. If you think the wound looks like it is becoming infected (redness or worsening drainage) and/or you are experiencing fever, chill or worsening back pain and muscle spasms, contact the office so that we may evaluate you as soon as possible. B. Complications are uncommon, but please contact us if you have any signs or symptoms of: 1. wound infection (fever higher than 102.5 degrees F, redness, separation of wound, drainage, or increasing pain from the incision) 2. blood clots in legs (pain, swelling, redness and warmth in legs) 3. urinary tract infection (fever higher than 102.5 degrees F, burning upon urination or increased frequency of urination) 4. nerve problems (inability to walk on your toes or heels, numbness, loss of bowel or bladder control) 5. any other symptoms that concern you C. Please call the office at if you have any concerns or questions about your operation or recovery. D. No smoking! Smoking drastically decreases the chance of a solid fusion. E. Do not take any anti-inflammatory medications (Indocin, Advil, Motrin, Aspirin, Naprosyn, etc.) as these may inhibit the chance of a solid fusion. Tylenol is okay to take for pain. MANAGING PAIN AFTER SPINAL SURGERY 1. Narcotic medication is intended for short-term use and will be provided for surgical pain. Surgical pain usually lasts for a period of 4-6 weeks. Narcotic medication includes Percocet, Vicodin, Darvocet, Tylenol #3 or Lortab. 2. Longer-term pain is more appropriately treated with non-narcotic medication such as Tylenol ES. 3. Muscle spasm is not appropriately treated with narcotics. Muscle relaxers such as Soma, Flexeril or Skelaxin can be used along with Tylenol ES. 4. Remember that we all live with some "aches and pains". This is not unusual or uncommon after an injury or as we get older. a. Back pain is expected and may include muscle spasms for 4 to 6 weeks after surgery. The pain should gradually improve. If the pain worsens for no apparent reason, please contact the office. b. Intermittent leg pain may also be experienced and should not be concerned about unless it worsens for no apparent reason. If so, please contact the office. 5. We will provide appropriate medication within the normal guidelines of their prescribed use. We will also be very cautious and aware of potential abuse and extended duration of patients' medication needs. a. Pain medications are for your comfort and to assist with sleep and rest so that the tissue can heal. They are not provided in order to return to normal activity and should not be used through the day. To do so or worsening pain at night can result from ongoing tissue damage and development of tolerance to the prescribed medicine. 6. Please allow 2-3 days to process refills. Prescriptions will not be mailed but must be picked up at the office. FOLLOW UP VISIT: Keep your scheduled follow-up appointment. Any questions, please call the office at . Total Time Total Time Spent Total Time Spent (In Minutes): 45 minutes
[2024-12-13 11:08] VITALS: TEMP 98.2; O2SAT 96
[2024-12-13 11:27] LABS: Cdiff Toxin B Gene (2yr or >) Negative Cdiff Gene (Neg)
[2024-12-13 13:00] VITALS: BP 159/80; PULSE 54
== END 2024-12-13 13:06 | DRG 919 ==
LOC: ED 14:31 → 2W 18:19 → SUATTDRO 18:19 → 2W 21:01